=== PATIENT | female | born 1935 ===

== ENCOUNTER 2017-08-12 12:20 | Inpatient (IN) | payer MEDICARE, OTHER ==
[2017-08-12] MEDS ORDERED: Morphine 2 mg/ml ISec IVP STA (13:09)
--- NOTE | 2017-08-12 13:14 | ED PDOC ---
Arrival/HPI - General Chief Complaint: Abdominal Pain Time Seen by Provider: 08/12/17 13:00 Historian: Patient - History of Present Illness Narrative History of Present Illness (Text): 08/12/17 13:12 An 82 year old female, whose past medical history includes hypertension, hyperlipidemia, diabetes, cirrhosis, s/p cholecystectomy, ITP, RA, presents to the emergency department for a complaint of 2 day duration constant right sided pain, malaise, weakness, and fever. The patient denies headache, dizziness, chest pain, shortness of breath, dyspnea on exertion, cough, nausea, vomiting, diarrhea, neck pain, urinary/bowel changes, or any other complaint. PMD: Dr. Edwards Time/Duration: Other (2 Days) Symptom Onset: Sudden Symptom Course: Worsening Activities at Onset: Rest, Light Context: Home Past Medical History - Provider Review Nursing Documentation Reviewed: Yes - Infectious Disease Hx of Infectious Diseases: None - Tetanus Immunization Tetanus Immunization: Unknown - Reproductive Menopause: Yes - Cardiac Hx Cardiac Disorders: Yes Hx Hypertension: Yes Hx Pacemaker: No - Pulmonary Hx Respiratory Disorders: Yes Hx Asthma: Yes Hx Chronic Obstructive Pulmonary Disease (COPD): Yes Hx Emphysema: Yes Hx Sleep Apnea: Yes (CPAP) - Neurological Hx Neurological Disorder: Yes Hx Dizziness: Yes Hx Transient Ischemic Attacks (TIA): Yes - HEENT Hx HEENT Disorder: Yes Hx Cataracts: Yes (REMOVED GERALDINE.) - Renal Hx Renal Disorder: Yes Other/Comment: DIABETIC NEPHROSIS - Endocrine/Metabolic Hx Endocrine Disorders: Yes Hx Diabetes Mellitus Type 2: Yes (OFF MEDICATIONS AT PRESENT) Other/Comment: SARCOIDOSIS - Hematological/Oncological Hx Blood Disorders: Yes Hx Anemia: Yes Hx Blood Transfusions: No Hx Cirrhosis: Yes (AND THROMBOCYTOPENIA) Other/Comment: HYPOVITAMINOSIS D. IDIOPATHIC PURPURA - Integumentary Hx Dermatological Disorder: Yes Other/Comment: SCATTERED BRUISES - Musculoskeletal/Rheumatological Hx Musculoskeletal Disorders: Yes Hx Arthritis: Yes Hx Back Pain: Yes Hx Degenerative Joint Disease: Yes Hx Falls: Yes Hx Fractures: Yes (LEFT LEG) Hx Osteoporosis: Yes Hx Unsteady Gait: Yes Other/Comment: PERIPHERAL NEUROPATHY - Gastrointestinal Hx Gastrointestinal Disorders: Yes Hx Esophageal Varices: Yes Hx Fatty Liver Disease: Yes (NON-ALCOHOLIC HEPATITIS, AND CIRRHOSIS) Hx Gall Bladder Disease: Yes Hx Gastroesophageal Reflux: Yes Other/Comment: Cirrhosis - Genitourinary/Gynecological Hx Genitourinary Disorders: No - Psychiatric Hx Psychophysiologic Disorder: Yes Hx Anxiety: Yes Hx Depression: No (RECENT LOSS OF MOTHER ) Hx Substance Use: No - Surgical History Hx Cataract Extraction: Yes (GERALDINE.) Hx Cholecystectomy: Yes Hx Tonsillectomy: Yes Other/Comment: LIVER BIOPSY - Anesthesia Hx Anesthesia: Yes Hx Anesthesia Reactions: No Hx Malignant Hyperthermia: No - Suicidal Assessment Feels Threatened In Home Enviroment: No Family/Social History - Physician Review Nursing Documentation Reviewed: Yes Family/Social History: No Known Family HX Smoking Status: Former Smoker Hx Alcohol Use: No Hx Substance Use: No Hx Substance Use Treatment: No Allergies/Home Meds Allergies/Adverse Reactions: Allergies No Known Allergies Allergy (Verified 02/13/17 07:28) Home Medications: Home Meds Medication Instructions Recorded Confirmed Albuterol 0.5% [Albuterol 0.5% 2.5 mg PO Q4 PRN 11/10/14 02/13/17 Inhal Ankita (2.5 mg/0.5 ml) UD] Esomeprazole Magnesium [Nexium] 40 mg PO DAILY 11/10/14 02/13/17 Valsartan [Diovan] 320 mg PO DAILY 05/27/15 02/13/17 Arformoterol [Brovana] 15 mcg IH BID 12/05/16 02/13/17 Review of Systems - Physician Review All systems were reviewed & negative as marked: Yes - Review of Systems Constitutional: Fevers, Other (generalized malaise). absent: Night Sweats Respiratory: absent: SOB, Cough Gastrointestinal: Abdominal Pain (Right sided abdominal pain). absent: Stool Changes, Diarrhea, Nausea, Vomiting Genitourinary Female: absent: Urine Output Changes Musculoskeletal: absent: Neck Pain Neurological: absent: Headache, Dizziness, Focal Weakness Physical Exam Vital Signs Reviewed: Yes Vital Signs Temp Pulse Resp BP Pulse Ox 08/12/17 16:06 98.7 F 92 H 18 119/58 L 98 08/12/17 13:26 103.0 F H 08/12/17 12:42 103 F H 102 H 20 160/121 H 99 Temperature: Febrile Blood Pressure: Hypertensive Pulse: Tachycardic Respiratory Rate: Normal Appearance: Positive for: Non-Toxic Pain Distress: Moderate Mental Status: Positive for: Alert and Oriented X 3 - Systems Exam Head: Present: Atraumatic, Normocephalic Pupils: Present: PERRL Extroacular Muscles: Present: EOMI Conjunctiva: Present: Normal Mouth: Present: Moist Mucous Membranes Neck: Present: Normal Range of Motion Respiratory/Chest: Present: Decreased Breath Sounds (Bibasilarly reduced breath sounds) Cardiovascular: Present: Regular Rate and Rhythm, Normal S1, S2. No: Murmurs Abdomen: Present: Tenderness (Right flank pain greater than right lower quadrant pain), Distention Back: Present: Normal Inspection Upper Extremity: Present: Normal Inspection. No: Cyanosis, Edema Lower Extremity: Present: Normal Inspection. No: Edema Neurological: Present: GCS=15, CN II-XII Intact, Speech Normal Skin: Present: Warm, Dry, Normal Color. No: Rashes Psychiatric: Present: Alert, Oriented x 3, Normal Insight, Normal Concentration Medical Decision Making ED Course and Treatment: 08/12/17 13:17 Impression: An 82 year old female presents to the emergency department complaining of 2 day duration constant right sided abdominal and flank pain, malaise, fever, and weakness. Plan: -- EKG -- Abdomen/Pelvis CT -- Chest X-ray -- Labs -- Urinalysis -- Blood/ Urine Culture -- Tylenol, Morphine, Zofran, Rocephin, Lactated Ringer's -- Reassess and disposition Progress Notes: EKG: Ordered, reviewed, and independently interpreted the EKG. Rate : 97 BPM Rhythm : Borderline Tachycardia Interpretation : Q wave in lead III. No arrhythmogenic intervals. No other ischemic ST-T segments. PROCEDURE: CT abdomen pelvis dated 08/12/2017. Creator : Jasiel Bell MD Report Date : 08/12/2017 16:38:36 IMPRESSION: Findings consistent with hepatic cirrhosis portal hypertension with recanalization of the umbilical vein an anterior abdominal wall varices with varices in the left upper quadrant of the abdomen. . Abdominal ascites. Splenomegaly. Findings consistent with colitis involving the cecum ascending and proximal transverse colon and possibly the sigmoid/rectum. Possible gastritis ; rule out other invasive wall lesion. . Small hiatal hernia with wall thickening distal esophagus likely due to protrusion gastric mucosa. Esophagitis or other intrinsic/invasive wall lesion not excluded Cholecystectomy. Urinary bladder wall thickening likely due to incomplete distention however cystitis not excluded. Correlation with urinalysis. Cardiomegaly. Chest X-ray Creator : Jasiel Bell MD Report Date : 08/12/2017 16:53:36 IMPRESSION: The central pulmonary vasculature appears increased; rule out chronic compensated pulmonary edema/CHF versus perihilar infiltrates. Clinic correlation recommended. Mild bibasilar atelectasis. Marked cardiomegaly. 08/12/17 17:55: Case discussed in detail with Dr. Kemp who was concerned about possible worsening right sided ischemic collitis and advised broadening antibiotic coverage and clear diet. He states that he will see her. - Lab Interpretations Lab Results: 08/12/17 13:46 08/12/17 13:46 Lab Results 08/12/17 13:46: Sodium 139, Chloride 108 H, Potassium 3.8, Carbon Dioxide 24, Anion Gap 11, BUN 10, Creatinine 0.5 L, Est GFR ( Amer) > 60, Est GFR ( Non-Af Amer) > 60, Random Glucose 152 H, Calcium 8.2 L, Phosphorus 2.0 L, Magnesium 1.4 L, Total Bilirubin 4.7 H, AST 66 H, ALT 52, Alkaline Phosphatase 118, Troponin I < 0.01, Total Protein 6.3, Albumin 2.9 L, Globulin 3.4, Albumin/ Globulin Ratio 0.9 L 08/12/17 13:46: pO2 31, VBG pH 7.39, VBG pCO2 40.0, VBG HCO3 24.2, VBG Total CO2 25.4, VBG O2 Sat (Calc) 68.6 H, VBG Base Excess -0.7 L, VBG Potassium 3.8, Sodium 138.0, Chloride 109.0 H, Glucose 160 H, Lactate 1.8, FiO2 21.0, Venous Blood Potassium 3.8 08/12/17 13:46: Urine Color Yellow, Urine Appearance Cloudy, Urine pH 7.0, Ur Specific [place] 1.020, Urine Protein 100 H, Urine Glucose (UA) Negative, Urine Ketones Negative, Urine Blood Small H, Urine Nitrate Negative, Urine Bilirubin Negative, Urine Urobilinogen 1.0 H, Ur Leukocyte Esterase Moderate H, Urine RBC 0 - 2, Urine WBC Tntc, Ur Epithelial Cells 10 - 12, Urine Bacteria Many 08/12/17 13:46: PT 19.2 H, INR 1.67 H, APTT 37.1 H 08/12/17 13:46: WBC 10.0 D, RBC 3.45 L, Hgb 11.8 L, Hct 34.7 L, MCV 100.6, MCH 34.2, MCHC 34.0, RDW 15.4 H, Plt Count 40 L*, MPV 12.6 H, Gran % 80.5 H, Lymph % (Auto) 9.3 L, Trigg % (Auto) 9.0 H, Eos % (Auto) 1.0 L, Baso % (Auto) 0.2, Gran # 8.09 H, Lymph # (Auto) 0.9 L, Trigg # (Auto) 0.9 H, Eos # (Auto) 0.1, Baso # (Auto) 0.02, Platelet Evaluation Low I have reviewed the lab results: Yes - RAD Interpretation Radiology Orders: 08/12/17 13:04 CHEST PORTABLE [RAD] Stat 08/12/17 13:13 ABD PELVIS PO & IV CONTRAST [CT] Stat - EKG Interpretation Interpreted by ED Physician: Yes Type: 12 lead EKG - Medication Orders Current Medication Orders: Ceftriaxone Sodium (Rocephin 1 Gram Ivpb) 1 gm in 100 mls @ 100 mls/hr IVPB ONCE ONE PRN Reason: Protocol Stop: 08/13/17 14:07 Levofloxacin/Dextrose (Levaquin 750mg) 750 mg in 150 mls @ 100 mls/hr IVPB STAT STA PRN Reason: Protocol Stop: 08/12/17 19:01 Metronidazole (Flagyl) 500 mg in 100 mls @ 100 mls/hr IVPB STAT STA PRN Reason: Protocol Stop: 08/12/17 18:46 Last Admin: 08/12/17 18:11 Dose: 100 mls/hr eMAR Start Stop Document 08/12/17 18:11 OCS (Rec: 08/12/17 18:11 OCS [id number]) Intravenous Solution Start Date 08/12/17 Start Time 18:11 End Date 08/12/17 End time 19:11 Total Infusion Time 60 Lactated Ringer's (Lactated Ringer's) 1,000 mls @ 75 mls/hr IV .[id number] DELPHINE Last Admin: 08/12/17 18:12 Dose: 75 mls/hr eMAR Start Stop Document 08/12/17 18:12 OCS (Rec: 08/12/17 18:12 OCS [id number]) Intravenous Solution Start Date 08/12/17 Start Time 18:12 Discontinued Medications Acetaminophen (Tylenol 325mg Tab) 975 mg PO STAT STA Stop: 08/12/17 13:08 Last Admin: 08/12/17 13:26 Dose: 975 mg MAR Pain/Vitals Document 08/12/17 13:26 OCS (Rec: 08/12/17 13:27 OCS [id number]) Pain Reassessment Is This A Pain ReAssessment? No Sleep Is patient sleeping during reassessment? No Presence of Pain Presence of Pain Yes Pain Scale Used Pain Scale Used Numeric Location Pain Location Body Site Generalized Description Constant Intensity 10 Scale Used Numeric Pain Behavior Moaning Screaming Aggravating Factors ADL's Vitals Temperature (97.6 F-99.6 F) 103.0 F Temperature Source Oral Lactated Ringer's 1,000 ml/ IV (SUPPLIES) 1,000 mls @ 4,855.26 mls/hr IV ONCE ONE PRN Reason: 60 ML/KG/HR Stop: 08/12/17 13:02 Last Admin: 08/12/17 13:28 Dose: 4,855.26 mls/hr eMAR Start Stop Document 08/12/17 13:28 OCS (Rec: 08/12/17 13:28 [id number] Intravenous Solution Start Date 08/12/17 Start Time 13:28 Magnesium Sulfate (Magnesium Sulfate 2 Gm/50 Ml Water) 2 gm in 50 mls @ 50 mls/ hr IVPB ONCE ONE Stop: 08/12/17 17:55 Last Admin: 08/12/17 17:09 Dose: 50 mls/hr eMAR Start Stop Document 08/12/17 17:09 OCS (Rec: 08/12/17 17:09 [id number]) Intravenous Solution Start Date 08/12/17 Start Time 17:09 End Date 08/12/17 End time 18:09 Total Infusion Time 60 Morphine Sulfate (Morphine) 2 mg IVP STAT STA Stop: 08/12/17 13:10 Last Admin: 08/12/17 13:27 Dose: 2 mg MAR Pain Assessment Document 08/12/17 13:27 OCS (Rec: 08/12/17 13:27 [id number] Pain Reassessment Is this a pain reassessment? No Sleep Is patient sleeping during reassessment? No Presence of Pain Presence of Pain Yes Pain Scale Used Pain Scale Used Numeric Location Pain Location Body Site Abdomen Description Description Constant Pain Behavior Moaning Irritability Facial Grimacing Aggravating Factors ADL's IVP Administration Document 08/12/17 13:27 OCS (Rec: 08/12/17 13:27 OCS [id number]) Charges for Administration # of IVP Administrations 1 Ondansetron HCl (Zofran Inj) 4 mg IVP STAT STA Stop: 08/12/17 13:15 Last Admin: 08/12/17 13:27 Dose: 4 mg IVP Administration Document 08/12/17 13:27 OCS (Rec: 08/12/17 13:27 OCS [id number]) Charges for Administration # of IVP Administrations 1 - Scribe Statement The provider has reviewed the documentation as recorded by the Scribe Carol Grimaldo Provider Scribe Attestation: All medical record entries made by the Scribe were at my direction and personally dictated by me. I have reviewed the chart and agree that the record accurately reflects my personal performance of the history, physical exam, medical decision making, and the department course for this patient. I have also personally directed, reviewed, and agree with the discharge instructions and disposition. Disposition/Present on Arrival - Present on Arrival Any Indicators Present on Arrival: No History of DVT/PE: No History of Uncontrolled Diabetes: Yes Urinary Catheter: No History of Decub. Ulcer: No History Surgical Site Infection Following: None - Disposition Have Diagnosis and Disposition been Completed?: Yes Diagnosis: Colitis, Urinary tract infection, Sepsis Disposition: HOSPITALIZED Disposition Time: 18:39 Patient Plan: Admission, Telemetry Patient Problems: Current Active Problems Problem Status Onset Colitis Acute Sepsis Acute Urinary tract infection Acute Condition: FAIR Discharge Instructions (ExitCare): Sepsis (ED) Forms: [employer] (Greek)
[2017-08-12] MEDS ORDERED: Iohexol 240 (50 ml) ONE (13:40)
[2017-08-12 13:55] LABS: VENOUS BLOOD GAS BASE EXCESS -0.7 mmol/L (0.0-2.0); VENOUS BLOOD GAS PO2 31 mm/Hg (30-55); VENOUS BLOOD PH 7.39 (7.32-7.43)
[2017-08-12 13:57] LABS: BASO # 0.02 K/mm3 (0.0-2.0); BASO % 0.2 % (0.0-3.0); EOS # 0.1 (0.0-0.7); GRAN # 8.09 (1.4-6.5); GRAN % 80.5 % (50.0-68.0); HEMOGLOBIN 11.8 g/dL (12.0-16.0); LYMPH # 0.9 (1.2-3.4); LYMPH % 9.3 % (22.0-35.0); MEAN CELL VOLUME 100.6 fl (80.0-105.0); MEAN CORPUSCULAR HEMOGLOBIN 34.2 pg (25.0-35.0); MEAN PLATELET VOLUME 12.6 fl (7.0-11.0); MONO # 0.9 (0.1-0.6); RBC 3.45 10^6/uL (3.5-6.1); RED CELL DISTRIBUTION WIDTH 15.4 % (11.5-14.5)
[2017-08-12 14:01] LABS: ALB/GLOB RATIO 0.9 (1.1-1.8); ALBUMIN 2.9 g/dL (3.0-4.8); ALT/SGPT 52 U/L (7-56); AST/SGOT 66 U/L (14-36); BLOOD UREA NITROGEN 10 mg/dL (7-21); CALCIUM 8.2 mg/dL (8.4-10.5); GFR AFRICAN-AMERICAN > 60; GFR NON-AFRICAN AMERICAN > 60
[2017-08-12 14:03] LABS: INR 1.67 (0.93-1.08); PARTIAL THROMBOPLASTIN TIME 37.1 Seconds (25.1-36.5); PROTHROMBIN TIME 19.2 SECONDS (9.4-12.5)
[2017-08-12 14:04] LABS: PLATELET COUNT 40 10^3/uL (120.0-450.0)
[2017-08-12 14:11] LABS: URINE BILIRUBIN NEGATIVE (NEGATIVE); URINE BLOOD SMALL (NEGATIVE); URINE GLUCOSE (UA) NEGATIVE (NEGATIVE); URINE LEUKOCYTE ESTERASE MODERATE Leu/uL (NEGATIVE); URINE PROTEIN 100 mg/dL (<30 mg/dL)
[2017-08-12 14:12] LABS: URINE APPEARANCE CLOUDY (CLEAR); URINE COLOR YELLOW (YELLOW)
[2017-08-12 14:13] LABS: TROPONIN I < 0.01 ng/mL
[2017-08-12 14:17] LABS: URINE BACTERIA MANY (NEG); URINE RBC 0 - 2 /hpf (0-2); URINE WBC TNTC /hpf (0-6)
[2017-08-12 14:35] LABS: PLATELET ESTIMATE LOW (NORMAL)
[2017-08-12] MEDS ORDERED: Iohexol 350 MG/100 ML VIAL ONE (15:08)
--- NOTE | 2017-08-12 16:40 | CT ---
PROCEDURE: CT abdomen pelvis dated 08/12/2017. HISTORY: Rule out cecal colitis vs ascending pyelouretertis COMPARISON: Comparison made with prior CT scan abdomen pelvis 05/17/2014 TECHNIQUE: Contiguous axial images of the abdomen and pelvis performed following oral and intravenous injection of approximately 100 cc Omnipaque 350 contrast material. Additional 2D sagittal and coronal reformats generated. Radiation dose: Total exam DLP = 801.92 mGy-cm. This CT exam was performed using one or more of the following dose reduction techniques: Automated exposure control, adjustment of the mA and/or kV according to patient size, and/or use of iterative reconstruction technique. FINDINGS: LOWER THORAX: Heart appears enlarged. The No significant pericardial effusion. Mild atelectasis medial segment right middle lobe. There is also mild passive type atelectasis seen both posterior sulci. No effusion or basilar pneumothorax. There is a small hiatal hernia with wall thickening of the distal esophagus which may be secondary to protrusion gastric mucosa. Esophagitis or other intrinsic/invasive wall lesion not excluded. LIVER: Liver exhibits nodular surface contour with abdominal ascites. . . Minimal central intrahepatic biliary ductal dilatation likely due to post cholecystectomy state In addition, there are apparent varices seen in the left upper quadrant of the abdomen adjacent to the splenic hilar region and spleen. In addition, there is re- cannulization of the umbilical vein with anterior abdominal wall varices. Constellation of findings consistent with hepatic cirrhosis and portal hypertension. . . Note also made of a tiny hepatic calcification superior aspect right lobe liver. GALLBLADDER AND BILE DUCTS: Cholecystectomy PANCREAS: Pancreas appears slightly atrophic and fat replaced without masses collections or calcifications. SPLEEN: Spleen is enlarged measuring nearly 14 cm in AP dimension. No splenic mass or collection ADRENALS: There are no adrenal lesions. KIDNEYS AND URETERS: The kidneys demonstrate relatively symmetric nephrograms. No evidence of nephrolithiasis or hydronephrosis. No obvious enhancement of the urothelial surfaces. BLADDER: Urinary bladder is incompletely distended which may in part account for thick-walled appearance however correlation with urinalysis recommended to exclude the possibility of a cystitis. REPRODUCTIVE: Uterus unremarkable APPENDIX: Unremarkable. BOWEL: Evaluation of the bowel is limited due to the incomplete opacification. The stomach is incompletely distended which may in part account for thick-walled appearance however rugal folds are prominent; rule out gastritis or other intrinsic/invasive wall lesion. There are several minimally distended loops of proximal small bowel which could be secondary to mild ileus. Marked wall thickening of the cecum and at ascending as well as proximal transverse colon consistent with a nonspecific colitis. Clinical correlation recommended. Note also made of scattered colonic diverticulum along the splenic flexure region, descending and sigmoid colon however no definitive radiographic evidence acute diverticulitis. . Note is made of wall thickening of the rectum and distal sigmoid colon which could be due to colitis -proctitis. PERITONEUM: Abdominal ascites. No gross free intraperitoneal air. LYMPH NODES: Unremarkable. No enlarged lymph nodes. VASCULATURE: Unremarkable. No aortic aneurysm. BONES: No fracture or destructive lesion. OTHER FINDINGS: None. IMPRESSION: Findings consistent with hepatic cirrhosis portal hypertension with recanalization of the umbilical vein an anterior abdominal wall varices with varices in the left upper quadrant of the abdomen. . Abdominal ascites. Splenomegaly. Findings consistent with colitis involving the cecum ascending and proximal transverse colon and possibly the sigmoid/rectum. Possible gastritis ; rule out other invasive wall lesion. . Small hiatal hernia with wall thickening distal esophagus likely due to protrusion gastric mucosa. Esophagitis or other intrinsic/invasive wall lesion not excluded Cholecystectomy. Urinary bladder wall thickening likely due to incomplete distention however cystitis not excluded. Correlation with urinalysis. Cardiomegaly.
--- NOTE | 2017-08-12 16:55 | RAD ---
HISTORY: Sepsis Patient COMPARISON: Comparison chest 05/05/2015. FINDINGS: LUNGS: The central pulmonary vasculature appears increased; rule out chronic compensated pulmonary edema/CHF versus perihilar infiltrates. Clinic correlation recommended. Mild bibasilar atelectasis. PLEURA: No significant pleural effusion identified, no pneumothorax apparent. CARDIOVASCULAR: Marked cardiomegaly. OSSEOUS STRUCTURES: No significant abnormalities. VISUALIZED UPPER ABDOMEN: Normal. OTHER FINDINGS: None. IMPRESSION: The central pulmonary vasculature appears increased; rule out chronic compensated pulmonary edema/CHF versus perihilar infiltrates. Clinic correlation recommended. Mild bibasilar atelectasis. Marked cardiomegaly.
[2017-08-12] MEDS ORDERED: Magnesium Sulfate 2 gm/50 ml 2 GM/50 ML BAG IVPB ONE (16:56)
[2017-08-12] MEDS ORDERED: levoFLOXacin 750 mg in D5W 750 MG/150 ML BAG IVPB STA (17:32)
[2017-08-12] MEDS ORDERED: metroNIDAZOLE IV 500 mg/100 ml 500 MG/100 ML BAG IVPB STA (17:47)
[2017-08-12] MEDS: Lactated Ringer's 1,000 ML IV SCH (18:12)
--- NOTE | 2017-08-12 21:48 | CP.PCM.HP ---
<Nikolas Bowers - Last Filed: 08/12/17 22:55> History of Present Illness - History of Present Illness History of Present Illness: Chief Complaint: "I have abdominal pain which goes down my legs and my back." Patient is an 82 year old female with a past medical history of COPD, rheumatoid arthritis, hemotomachrosis, DM on diet control, hypertension, hyperlipidemia, ITP who presents to the emergency department with complaints of abdominal pain which began two days ago while at home relaxing. Patient states the pain is located initially in her epigastric region then radiated down to her legs bilaterally radiating to her toes. She also states the pain radiates directly to her back. Describes the pain as sharp rating it a 8/10. Pain is exacerbated when palpated, and has no relieving factors thus far. Patient states she experienced this exact feeling a few years back which also caused her to be admitted. As per patient's daughter who was at bedside patient has been eating raw rice as of late. Patient admits to chills, two episodes of vomiting the day prior to admission. Denies any acute shortness of breath, chest pain, palpitations, nausea, headache. PMD: Dr. Edwards, however patient goes back and forth and also sees a physician in [place]: Denies Family history: non-contributory Social history: lives with , denies smoking,alcohol abuse, or drug abuse Surgical history: carpal tunnel, cholecystectomy Labs: RBC 3.45, H&H 11.8 & 34.7, Plt 40, Gran% 80.5, INR 1.67, APTT 37.1, lactate 1.8, Chloride 108, calcium 8.2, phosphorous 2.0, magnesium 1.4, AST 66, Troponin 0.01 UA: Leukocyte esterase +, WBC Tntc CT abdomen and pelvis -Findings consistent with hepatic cirrhosis portal hypertension with recanalization of the umbilical vein an anterior abdominal wall varices with varices in the left upper quadrant of the abdomen. . Abdominal ascites. Splenomegaly. -Findings consistent with colitis involving the cecum ascending and proximal transverse colon and possibly the sigmoid/rectum. -Possible gastritis ; rule out other invasive wall lesion. . Small hiatal hernia with wall thickening distal esophagus likely due to protrusion gastric mucosa. Esophagitis or other intrinsic/invasive wall lesion not excluded -Cholecystectomy. -Urinary bladder wall thickening likely due to incomplete distention however cystitis not excluded. Correlation with urinalysis. -Cardiomegaly. Present on Admission - Present on Admission Any Indicators Present on Admission: No Review of Systems - Constitutional Constitutional: Chills. absent: Anorexia, Fever, Headache - EENT Eyes: absent: Blurred Vision, Change in Vision - Cardiovascular Cardiovascular: absent: Chest Pain, Dyspnea - Respiratory Respiratory: absent: Cough, Dyspnea - Gastrointestinal Gastrointestinal: Abdominal Pain, Vomiting. absent: Diarrhea - Genitourinary Genitourinary: absent: Dysuria - Musculoskeletal Musculoskeletal: absent: Back Pain - Neurological Neurological: absent: Dizziness, Numbness - Psychiatric Psychiatric: absent: Anxiety - Hematologic/Lymphatic Hematologic: absent: Easy Bleeding Past Patient History - Infectious Disease Hx of Infectious Diseases: None - Tetanus Immunizations Tetanus Immunization: Unknown - Past Medical History & Family History Past Medical History?: Yes - Past Social History Smoking Status: Former Smoker - CARDIAC Hx Cardiac Disorders: Yes Hx Hypertension: Yes Hx Pacemaker: No - PULMONARY Hx Respiratory Disorders: Yes Hx Asthma: Yes Hx Chronic Obstructive Pulmonary Disease (COPD): Yes Hx Emphysema: Yes Hx Sleep Apnea: Yes (CPAP) - NEUROLOGICAL Hx Neurological Disorder: Yes Hx Dizziness: Yes Hx Transient Ischemic Attacks (TIA): Yes - HEENT Hx HEENT Problems: Yes Hx Cataracts: Yes (REMOVED GERALDINE.) - RENAL Hx Chronic Kidney Disease: Yes Other/Comment: DIABETIC NEPHROSIS - ENDOCRINE/METABOLIC Hx Endocrine Disorders: Yes Hx Diabetes Mellitus Type 2: Yes (OFF MEDICATIONS AT PRESENT) Other/Comment: SARCOIDOSIS - HEMATOLOGICAL/ONCOLOGICAL Hx Blood Disorders: Yes Hx Anemia: Yes Hx Blood Transfusions: No Hx Cirrhosis: Yes (AND THROMBOCYTOPENIA) Other/Comment: HYPOVITAMINOSIS D. IDIOPATHIC PURPURA - INTEGUMENTARY Hx Dermatological Problems: Yes Other/Comment: SCATTERED BRUISES - MUSCULOSKELETAL/RHEUMATOLOGICAL Hx Musculoskeletal Disorders: Yes Hx Arthritis: Yes Hx Back Pain: Yes Hx Degenerative Joint Disease: Yes Hx Falls: Yes Hx Fractures: Yes (LEFT LEG) Hx Osteoporosis: Yes Hx Unsteady Gait: Yes Other/Comment: PERIPHERAL NEUROPATHY - GASTROINTESTINAL Hx Gastrointestinal Disorders: Yes Hx Esophageal Varices: Yes Hx Fatty Liver Disease: Yes (NON-ALCOHOLIC HEPATITIS, AND CIRRHOSIS) Hx Gall Bladder Disease: Yes Hx Gastroesophageal Reflux: Yes Other/Comment: Cirrhosis - GENITOURINARY/GYNECOLOGICAL Hx Genitourinary Disorders: No - PSYCHIATRIC Hx Psychophysiologic Disorder: Yes Hx Anxiety: Yes Hx Depression: No (RECENT LOSS OF MOTHER ) Hx Substance Use: No - SURGICAL HISTORY Hx Cataract Extraction: Yes (GERALDINE.) Hx Cholecystectomy: Yes Hx Tonsillectomy: Yes Other/Comment: LIVER BIOPSY - ANESTHESIA Hx Anesthesia: Yes Hx Anesthesia Reactions: No Hx Malignant Hyperthermia: No Meds Allergies/Adverse Reactions: Allergies Allergy/AdvReac Type Severity Reaction Status Date / Time No Known Allergies Allergy Verified 02/13/17 07:28 Physical Exam - Head Exam Head Exam: ATRAUMATIC, NORMAL INSPECTION, NORMOCEPHALIC - Eye Exam Eye Exam: EOMI, Normal appearance - ENT Exam ENT Exam: Mucous Membranes Moist - Respiratory Exam Respiratory Exam: Rhonchi (b/l lower bases). absent: Clear to Auscultation Bilateral - Cardiovascular Exam Cardiovascular Exam: REGULAR RHYTHM, +S1, +S2 - GI/Abdominal Exam GI & Abdominal Exam: Hyperactive Bowel Sounds, Tenderness (in all quadrants especially right mid and lower). absent: Guarding - Extremities Exam Extremities exam: Positive for: normal inspection - Back Exam Back exam: NORMAL INSPECTION - Neurological Exam Neurological exam: Alert, CN II-XII Intact, Oriented x3 - Psychiatric Exam Psychiatric exam: Normal Affect, Normal Mood - Skin Skin Exam: Warm Additional comments: bronze coloration of skin Results - Vital Signs Recent Vital Signs: Last Vital Signs Temp 98.7 F 08/12/17 16:06 Pulse 88 08/12/17 19:07 Resp 18 08/12/17 19:07 BP 112/64 08/12/17 19:07 Pulse Ox 99 08/12/17 19:07 - Labs Result Diagrams: 08/12/17 13:46 08/12/17 13:46 Labs: Laboratory Results - last 24 hr 08/12/17 08/12/17 08/12/17 13:46 13:46 13:46 WBC 10.0 D RBC 3.45 L Hgb 11.8 L Hct 34.7 L MCV 100.6 MCH 34.2 MCHC 34.0 RDW 15.4 H Plt Count 40 L* MPV 12.6 H Gran % 80.5 H Lymph % (Auto) 9.3 L [place] % (Auto) 9.0 H Eos % (Auto) 1.0 L Baso % (Auto) 0.2 Gran # 8.09 H Lymph # (Auto) 0.9 L [place] # (Auto) 0.9 H Eos # (Auto) 0.1 Baso # (Auto) 0.02 Platelet Evaluation Low PT 19.2 H INR 1.67 H APTT 37.1 H pO2 VBG pH VBG pCO2 VBG HCO3 VBG Total CO2 VBG O2 Sat (Calc) VBG Base Excess VBG Potassium Sodium Chloride Glucose Lactate FiO2 Potassium Carbon Dioxide Anion Gap BUN Creatinine Est GFR ( Amer) Est GFR (Non-Af Amer) Random Glucose Calcium Phosphorus Magnesium Total Bilirubin AST ALT Alkaline Phosphatase Troponin I Total Protein Albumin Globulin Albumin/Globulin Ratio Venous Blood Potassium Urine Color Yellow Urine Appearance Cloudy Urine pH 7.0 Ur Specific [place] 1.020 Urine Protein 100 H Urine Glucose (UA) Negative Urine Ketones Negative Urine Blood Small H Urine Nitrate Negative Urine Bilirubin Negative Urine Urobilinogen 1.0 H Ur Leukocyte Esterase Moderate H Urine RBC 0 - 2 Urine WBC Tntc Ur Epithelial Cells 10 - 12 Urine Bacteria Many 08/12/17 08/12/17 13:46 13:46 WBC RBC Hgb Hct MCV MCH MCHC RDW Plt Count MPV Gran % Lymph % (Auto) [place] % (Auto) Eos % (Auto) Baso % (Auto) Gran # Lymph # (Auto) [place] # (Auto) Eos # (Auto) Baso # (Auto) Platelet Evaluation PT INR APTT pO2 31 VBG pH 7.39 VBG pCO2 40.0 VBG HCO3 24.2 VBG Total CO2 25.4 VBG O2 Sat (Calc) 68.6 H VBG Base Excess -0.7 L VBG Potassium 3.8 Sodium 138.0 139 Chloride 109.0 H 108 H Glucose 160 H Lactate 1.8 FiO2 21.0 Potassium 3.8 Carbon Dioxide 24 Anion Gap 11 BUN 10 Creatinine 0.5 L Est GFR ( Amer) > 60 Est GFR (Non-Af Amer) > 60 Random Glucose 152 H Calcium 8.2 L Phosphorus 2.0 L Magnesium 1.4 L Total Bilirubin 4.7 H AST 66 H ALT 52 Alkaline Phosphatase 118 Troponin I < 0.01 Total Protein 6.3 Albumin 2.9 L Globulin 3.4 Albumin/Globulin Ratio 0.9 L Venous Blood Potassium 3.8 Urine Color Urine Appearance Urine pH Ur Specific [place] Urine Protein Urine Glucose (UA) Urine Ketones Urine Blood Urine Nitrate Urine Bilirubin Urine Urobilinogen Ur Leukocyte Esterase Urine RBC Urine WBC Ur Epithelial Cells Urine Bacteria Assessment & Plan - Assessment and Plan (Free Text) Assessment: Patient is an 82 year old female with a past medical history of COPD, rheumatoid arthritis, hemotomachrosis, DM on diet control, hypertension, hyperlipidemia, ITP who presents to the emergency department with complaints of abdominal pain which began two days ago while at home relaxing found to have colitis and possible gastritis on CT abdomen/pelvis Plan: Abdominal pain secondary to Colitis -GI consulted -Clear liquid diet -Continue with Rocephin and Flagyl -ZOfran PRN for nausea -Stool occult -Fecal leukocytes, Stool cultures, C diff -PT/PTT -Blood cultures UTI -Positive on UA -Continue with antibiotic regimen -Urine culture Anemia -Iron and TIBC -Transferrin, ferritin, folate, Vitamin B12 Hypertension -Currently control -Will continue to monitor and medicate appropriately GI prophylaxis: Protonix DVT prophylaxis: mechanical for now, will hold on on pharmalogical <Bailey Walters - Last Filed: 08/13/17 03:16> Results - Vital Signs Recent Vital Signs: Last Vital Signs Temp 98.4 F 08/13/17 00:01 Pulse 77 08/13/17 02:00 Resp 20 08/13/17 00:01 BP 126/68 08/13/17 00:01 Pulse Ox 97 08/13/17 00:01 - Labs Result Diagrams: 08/12/17 13:46 08/12/17 13:46 Labs: Laboratory Results - last 24 hr 08/12/17 08/12/17 21:46 21:46 Iron 91 TIBC 293 % Saturation 31 NT-Pro-B Natriuret Pep 582 H Attending/Attestation - Attestation I have personally seen and examined this patient.: Yes I have fully participated in the care of the patient.: Yes I have reviewed all pertinent clinical information: Yes Notes (Text): 08/13/17 03:15 Patient was seen when she was in bed # 6 in the ER. Agree with history, physical examination, assessment and plan.
[2017-08-12 22:06] LABS: IRON 91 ug/dL (45-180)
[2017-08-12 22:16] LABS: % IRON SATURATION 31 % (20-55); TOTAL IRON BINDING CAPACITY 293 ug/dL (265-497)
[2017-08-12] MEDS ORDERED: cefTRIAXone 1 gm 1 GM/100 ML BAG IVPB ONE (23:45)
[2017-08-12] MEDS ORDERED: Albuterol-Ipratrop 3 mg / 0.5 (3 ml) UD IH PRN (23:53)
[2017-08-13] MEDS: Morphine 2 mg/ml ISec IVP PRN ×3 (00:24→17:36)
[2017-08-13] MEDS ORDERED: Sodium Phosphate 15 MMOLE in Sodium Chloride 0.9% 250 ML IVPB ONE (03:11)
[2017-08-13 05:07] VITALS: BMI 29.6
[2017-08-13 07:48] LABS: BASO # 0.01 K/mm3 (0.0-2.0); BASO % 0.1 % (0.0-3.0); EOS # 0.2 (0.0-0.7); EOS % 2.6 % (1.5-5.0); GRAN # 5.89 (1.4-6.5); GRAN % 72.1 % (50.0-68.0); HEMOGLOBIN 10.7 g/dL (12.0-16.0); LYMPH # 1.1 (1.2-3.4); LYMPH % 13.3 % (22.0-35.0); MEAN CELL VOLUME 101.6 fl (80.0-105.0); MEAN CORPUSCULAR HEMOGLOBIN 33.5 pg (25.0-35.0); MEAN PLATELET VOLUME 13.3 fl (7.0-11.0); MONO % 11.9 % (1.0-6.0); RBC 3.19 10^6/uL (3.5-6.1); RED CELL DISTRIBUTION WIDTH 15.4 % (11.5-14.5); WHITE BLOOD COUNT 8.2 10^3/ul (4.5-11.0)
[2017-08-13 07:52] LABS: PLATELET COUNT 36 10^3/uL (120.0-450.0)
[2017-08-13] MEDS: Lactated Ringer's 1,000 ML IV SCH ×2 (08:00→21:00)
--- NOTE | 2017-08-13 08:00 | CP.PCM.PN ---
<Nikolas Bowers - Last Filed: 08/13/17 12:52> Subjective - Date & Time of Evaluation Date of Evaluation: 08/13/17 Time of Evaluation: 11:59 - Subjective Subjective: Patient seen and examined at bedside stating she is still in pain although it has improved since last night. Denies shortness of breath, chest pain, nausea, vomiting, diarrhea, headaches, fevers, chills. Objective - Vital Signs/Intake and Output Vital Signs (last 24 hours): Temp Pulse Resp BP Pulse Ox 98.3 F 79 20 118/57 L 94 L 08/13/17 06:00 08/13/17 06:00 08/13/17 06:00 08/13/17 06:00 08/13/17 06:00 Intake and Output: 08/13/17 08/13/17 06:59 18:59 Intake Total 1146 Output Total 300 Balance 846 - Medications Medications: Current Medications Acetaminophen (Tylenol 325mg Tab) 650 mg PO Q6H PRN PRN Reason: Fever >100.4 F Albuterol/Ipratropium (Duoneb 3 Mg/0.5 Mg (3 Ml) Ud) 3 ml IH [id number] PRN PRN Reason: Shortness of Breath Lactated Ringer's (Lactated Ringer's) 1,000 mls @ 75 mls/hr IV .[id number] [facility] Last Admin: 08/12/17 18:12 Dose: 75 mls/hr Metronidazole (Flagyl) 500 mg in 100 mls @ 100 mls/hr IVPB Q8 [facility] PRN Reason: Protocol Ceftriaxone Sodium (Rocephin 1 Gram Ivpb) 1 gm in 100 mls @ 100 mls/hr IVPB DAILY [facility] PRN Reason: Protocol Sodium Phosphate 15 mmole/ (Sodium Chloride) 255 mls @ 42.5 mls/hr IVPB ONCE ONE Stop: 08/13/17 09:10 Last Admin: 08/13/17 04:29 Dose: 42.5 mls/hr Morphine Sulfate (Morphine) 2 mg IVP Q4H PRN PRN Reason: Pain, severe (8-10) Last Admin: 08/13/17 00:24 Dose: 2 mg Ondansetron HCl (Zofran Inj) 4 mg IVP Q6H PRN PRN Reason: Nausea/Vomiting Pantoprazole Sodium (Protonix Inj) 40 mg IVP DAILY [facility] - Labs Labs: 08/13/17 07:00 PT 19.2 SECONDS (9.4-12.5) H 08/12/17 13:46 INR 1.67 (0.93-1.08) H 08/12/17 13:46 APTT 37.1 Seconds (25.1-36.5) H 08/12/17 13:46 - Head Exam Head Exam: ATRAUMATIC, NORMAL INSPECTION, NORMOCEPHALIC - Eye Exam Eye Exam: EOMI, Normal appearance - ENT Exam ENT Exam: Mucous Membranes Moist - Respiratory Exam Respiratory Exam: Clear to Ausculation Bilateral, Rhonchi (lower lobes b/l), NORMAL BREATHING PATTERN. absent: Wheezes - Cardiovascular Exam Cardiovascular Exam: REGULAR RHYTHM, +S1, +S2 - GI/Abdominal Exam GI & Abdominal Exam: Soft, Tenderness, Normal Bowel Sounds - Extremities Exam Extremities Exam: Full ROM, Normal Inspection - Neurological Exam Neurological Exam: Alert, Awake, Oriented x3 - Psychiatric Exam Psychiatric exam: Normal Affect, Normal Mood - Skin Skin Exam: Warm. absent: Normal Color (spots of brown discoloration and vitiligo throughout body) Assessment and Plan - Assessment and Plan (Free Text) Assessment: Patient is an 82 year old female with a past medical history of COPD, rheumatoid arthritis, hemotomachrosis, DM on diet control, hypertension, hyperlipidemia, ITP who presents to the emergency department with complaints of abdominal pain which began two days ago while at home relaxing found to have colitis and possible gastritis on CT abdomen/pelvis Plan: Abdominal pain secondary to Colitis -GI consulted -Continue with clear liquid diet -Continue with Rocephin and Flagyl -Zofran PRN for nausea -Stool occult -Fecal leukocytes, Stool cultures, C diff -Continue to monitor CBC, CMP, PT/PTT -Blood cultures ordered results pending UTI -Positive on UA -Continue with antibiotic regimen -Urine culture and sensitivity Anemia -Iron and TIBC normal -Transferrin 168 -Ferritin/folate/Vitamin B12 pending Hypertension -Currently controlled -Will continue to monitor and medicate appropriately COPD -Duonebs -NC 2L GI prophylaxis: Protonix DVT prophylaxis: mechanical for now, will hold on on pharmacological <Amanda Jacobs - Last Filed: 08/13/17 15:29> Objective - Vital Signs/Intake and Output Vital Signs (last 24 hours): Temp Pulse Resp BP Pulse Ox 98.9 F 75 21 144/77 94 L 08/13/17 12:00 08/13/17 12:00 08/13/17 12:00 08/13/17 12:00 08/13/17 06:00 Intake and Output: 08/13/17 08/13/17 06:59 18:59 Intake Total 1146 Output Total 300 Balance 846 - Medications Medications: Current Medications Acetaminophen (Tylenol 325mg Tab) 650 mg PO Q6H PRN PRN Reason: Fever >100.4 F Albuterol/Ipratropium (Duoneb 3 Mg/0.5 Mg (3 Ml) Ud) 3 ml IH [id number] PRN PRN Reason: Shortness of Breath Lactated Ringer's (Lactated Ringer's) 1,000 mls @ 75 mls/hr IV .[id number] [facility] Last Admin: 08/13/17 08:00 Dose: 75 mls/hr Metronidazole (Flagyl) 500 mg in 100 mls @ 100 mls/hr IVPB Q8 [facility] PRN Reason: Protocol Last Admin: 08/13/17 13:30 Dose: 100 mls/hr Ceftriaxone Sodium (Rocephin 1 Gram Ivpb) 1 gm in 100 mls @ 100 mls/hr IVPB DAILY [facility] PRN Reason: Protocol Last Admin: 08/13/17 09:34 Dose: 100 mls/hr Morphine Sulfate (Morphine) 2 mg IVP Q4H PRN PRN Reason: Pain, severe (8-10) Last Admin: 08/13/17 09:32 Dose: 2 mg Ondansetron HCl (Zofran Inj) 4 mg IVP Q6H PRN PRN Reason: Nausea/Vomiting Pantoprazole Sodium (Protonix Inj) 40 mg IVP DAILY [facility] Last Admin: 08/13/17 09:34 Dose: 40 mg - Labs Labs: 08/13/17 07:00 08/13/17 07:00 PT 21.0 SECONDS (9.4-12.5) H 08/13/17 07:00 INR 1.80 (0.93-1.08) H 08/13/17 07:00 APTT 40.6 Seconds (25.1-36.5) H 08/13/17 07:00 Attending/Attestation - Attestation I have personally seen and examined this patient.: Yes I have fully participated in the care of the patient.: Yes I have reviewed all pertinent clinical information, including history, physical exam and plan: Yes Notes (Text): 08/13/17 14:50 Medical record note made by the resident after discussion with my direction and input after the patient was personally seen and examined by me. I have reviewed the chart and agree that the record accurately reflects by personal performance of the history, physical exam, data review, and medical decision-making, in the course for the patient. I have also personally directed the plan of care. 82 year old female with a past medical history of COPD, rheumatoid arthritis, chronic liver disease, , hypertension, hyperlipidemia, chronic thrombocytopenia ,ITP? is admitted with abdominal pain due to ascending Colitis, has significant tenderness in the right lower quadrant, tolerating clear liquid. We will continue IV antibiotics.Case was discussed with ISELA Pate. Thrmobocytopenia is chronic.There is no evidence of bleeding, we will monitor. Management plan was discussed in detail with patient and family. Education was provided. 08/13/17 15:29
[2017-08-13 08:05] LABS: ALB/GLOB RATIO 0.8 (1.1-1.8); ALBUMIN 2.4 g/dL (3.0-4.8); ALT/SGPT 45 U/L (7-56); AST/SGOT 53 U/L (14-36); BLOOD UREA NITROGEN 11 mg/dL (7-21); CALCIUM 7.8 mg/dL (8.4-10.5); GFR AFRICAN-AMERICAN > 60; GFR NON-AFRICAN AMERICAN > 60; INR 1.8 (0.93-1.08); PARTIAL THROMBOPLASTIN TIME 40.6 Seconds (25.1-36.5)
[2017-08-13] MEDS: cefTRIAXone 1 gm 1 GM/100 ML BAG IVPB SCH (09:34)
[2017-08-13] MEDS: metroNIDAZOLE IV 500 mg/100 ml 500 MG/100 ML BAG IVPB SCH ×3 (09:36→21:18)
--- NOTE | 2017-08-13 12:14 | CON ---
DATE: 08/12/2017 HISTORY OF PRESENT ILLNESS: This 82-year-old patient with a past medical history of cirrhosis of the liver, rheumatoid arthritis, COPD. 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 [place]. Admitted with the complaints of abdominal pain, leg pain and also back pain. Progressively, the symptoms were getting worse for over the 2 days. They have mentioned the discomfort is mainly on the right side of the abdomen. History of loose bowel movements present. No bleeding per rectum. No vomiting. The patient had an abdominal pain, had CT scan done in 12/2016, which showed narrowing of the cecum, neoplasia versus colitis. Also found to have some thickening of the gastric antrum suggestive of gastritis. The patient had colonoscopy done and also endoscopy done. Endoscopy was done in 11/2016, it showed grade 1 esophageal varices, gastritis. The patient had a colonoscopy done on 02/23/2017, the report was reviewed - internal hemorrhoids, diverticulosis and a small 3-mm polyp with transverse colon was removed. There is no lesion or colitis noticed in the cecum or ascending colon. The patient's polyp path showed only hyperplastic polyp. PAST MEDICAL HISTORY: Other past medical history significant for rheumatoid arthritis, status post cholecystectomy, COPD, diabetes mellitus, chronic kidney disease, nonalcoholic liver disease. The patient did have a liver biopsy in the past, it showed hepatic steatosis. PAST SURGICAL HISTORY: Significant for cholecystectomy, tonsillectomy, liver biopsy. FAMILY HISTORY: Noncontributory. SOCIAL HISTORY: Denies smoking. No alcohol. REVIEW OF THE SYSTEMS: Positive as above. Other systems reviewed. PHYSICAL EXAMINATION: GENERAL: The patient is lying on the bed, not in acute distress. VITAL SIGNS: Temperature is 98.9, blood pressure is 119/58, respirations 18, O2 saturation 98%. HEENT: Atraumatic, anicteric. NECK: Supple. HEART: S1 and S2 heard. LUNGS: Bilateral air entry present. ABDOMEN: Softly distended. Tenderness present in the right side of the abdomen, mainly in the right lower quadrant area. There is no rebound or guarding. EXTREMITIES: No cyanosis. No clubbing. Mild edema present. NEUROLOGICAL: Alert, oriented, moves all the extremities. LABORATORY DATA: Hemoglobin 11.8, hematocrit 34.7, WBC is 10, platelets 40. Chemistry is otherwise unremarkable. Magnesium is 1.4, total bilirubin 4.7. AST 66, ALT 52. IMPRESSION: This is an 82-year-old patient with a history of cirrhosis of the liver, liver biopsy in the past showed steatohepatitis, now presented with abdominal pain, mainly in the right side. The CT scan shows a focal thickening of the right colon max cecum. The patient did have a colonoscopy done in 01/2017, which showed normal. I did review the CT scans . The patient has significant thickening in the right side of the colon. Most likely, the cause for her abdominal pain may be secondary to this colitis, mainly in the right side of colon. Rule out ischemic colitis other DD infectious and inflammatory. Other comorbidities include cirrhosis of the liver, chronic obstructive pulmonary disease, diabetes mellitus, chronic kidney disease. RECOMMENDATIONS: We will wait for the stool cultures, stool for C. diff. We will start the patient on IV antibiotics. Clear liquid diet. We will continue to closely follow up her care and suggest further management based on the clinical course. Vernell Kemp MD MTDD
[2017-08-13 12:45] LABS: FERRITIN 98.6 ng/mL
[2017-08-13] MEDS ORDERED: cefTRIAXone 1 gm 1 GM/100 ML BAG IVPB ONE (13:08)
[2017-08-13 13:15] LABS: FOLATE 19.4 ng/mL
--- NOTE | 2017-08-13 13:15 | CARD ---
APPROVED REPORT EKG Measurement Heart [id number] <Conclusion> Normal sinus rhythm Normal ECG
--- NOTE | 2017-08-13 14:34 | RAD ---
PROCEDURE: Pelvis and right hip HISTORY: Pain. No history of recent/ related trauma provided COMPARISON: None TECHNIQUE: Standard protocol for this study/examination. FINDINGS: There are no osseous abnormalities to suggest fracture. The pelvic ring is intact. Preserved femoral-acetabular relationship. Negative study for protrusio, subluxation or dislocation. Degenerative changes: Mild. IMPRESSION: No acute findings related to/accounting for the clinical presentation.
--- NOTE | 2017-08-13 14:35 | RAD ---
PROCEDURE: Radiographs of the Lumbar Spine. HISTORY: back pain No history of recent trauma provided COMPARISON: No prior. FINDINGS: BONES: Normal alignment. No listhesis. No fracture. DISC SPACES: Disc degenerative changes lower lumbar spine. OTHER FINDINGS: None. IMPRESSION: No significant or acute findings to account for/ related to the clinical presentation.
[2017-08-14 00:17] VITALS: RESP 20
[2017-08-14] MEDS: Lactated Ringer's 1,000 ML IV SCH ×2 (03:00→14:16)
--- NOTE | 2017-08-14 03:14 | PN ---
DATE: 08/13/2017 SUBJECTIVE: This patient still complains of pain in the right side of the abdomen. She also complains of pain in the right leg, from the back pain radiating to the right leg. PHYSICAL EXAMINATION: VITAL SIGNS: Temperature is 97.9, pulse 75, blood pressure is 145/75, respirations 18. HEENT: Atraumatic, anicteric. NECK: Supple. HEART: S1, S2 heard. LUNGS: Bilateral air entry present. ABDOMEN: Soft. There was tenderness present in the lower abdomen in the right lower quadrant area, and right side of the abdomen. LABORATORY DATA: Hemoglobin 10.7, hematocrit 32.4, WBC is 8.2, platelets 36. Total bilirubin 4.3, AST 53. IMPRESSION: This is an 82-year-old patient with cirrhosis of the liver, probably secondary to the nonalcoholic steatohepatitis, admitted with abdominal pain, right-sided colonic thickening, significant thickening noticed. Patient did have abnormal CAT scan in December, had a colonoscopy done in March, there were no lesions noticed. No active colitis noticed. Clinically, the pattern is more suggestive of ischemic colitis. The other differential diagnosis actually includes; 1. Infectious, less likely inflammatory. 2. Cirrhosis of the liver, ascites, and thrombocytopenia. Patient does have grade 1 esophageal varices. 3. Other comorbidities include hypertension, chronic obstructive pulmonary disease. PLAN: We would recommend to continue the antibiotics, clear liquid diet. May benefit from the abdominal Doppler to evaluate the celiac and mesenteric vessels. Also request stool for C. diff. Thank you very much for allowing us to participate in the care of the patient. Vernell Kemp MD
[2017-08-14] MEDS: metroNIDAZOLE IV 500 mg/100 ml 500 MG/100 ML BAG IVPB SCH ×3 (05:28→21:29)
[2017-08-14 06:22] LABS: BASO # 0.04 K/mm3 (0.0-2.0); BASO % 0.9 % (0.0-3.0); EOS # 0.3 (0.0-0.7); EOS % 5.9 % (1.5-5.0); GRAN # 2.54 (1.4-6.5); GRAN % 55.3 % (50.0-68.0); HEMOGLOBIN 10.5 g/dL (12.0-16.0); LYMPH # 1.2 (1.2-3.4); LYMPH % 26.1 % (22.0-35.0); MEAN CELL VOLUME 101.9 fl (80.0-105.0); MEAN CORPUSCULAR HEMOGLOBIN 33.7 pg (25.0-35.0); MEAN PLATELET VOLUME 12.7 fl (7.0-11.0); MONO # 0.5 (0.1-0.6); MONO % 11.8 % (1.0-6.0); RBC 3.12 10^6/uL (3.5-6.1); RED CELL DISTRIBUTION WIDTH 15.7 % (11.5-14.5); WHITE BLOOD COUNT 4.6 10^3/ul (4.5-11.0)
--- NOTE | 2017-08-14 06:35 | CP.PCM.PN ---
Subjective - Date & Time of Evaluation Date of Evaluation: 08/14/17 Time of Evaluation: 06:35 - Subjective Subjective: GI Progress Note for Roly Adair PGY2 Patient seen and examined at bedside. There were no acute overnight events as per nursing staff. Patient reports her abdominal pain has improved and would like to try to advance her diet. She denies chest pain, shortness of breath, nausea/vomiting/diarrhea, fever/chills, numbness/tingling, dysuria/hematuria. Objective - Vital Signs/Intake and Output Vital Signs (last 24 hours): Temp Pulse Resp BP Pulse Ox 98.2 F 75 20 143/83 96 08/14/17 00:01 08/14/17 05:05 08/14/17 00:01 08/14/17 00:01 08/14/17 00:01 Intake and Output: 08/13/17 08/14/17 18:59 06:59 Intake Total 1950 720 Output Total 780 Balance 1170 720 - Medications Medications: Current Medications Acetaminophen (Tylenol 325mg Tab) 650 mg PO Q6H PRN PRN Reason: Fever >100.4 F Albuterol/Ipratropium (Duoneb 3 Mg/0.5 Mg (3 Ml) Ud) 3 ml IH [id number] PRN PRN Reason: Shortness of Breath Lactated Ringer's (Lactated Ringer's) 1,000 mls @ 75 mls/hr IV .[id number] [facility] Last Admin: 08/14/17 03:00 Dose: 75 mls/hr Metronidazole (Flagyl) 500 mg in 100 mls @ 100 mls/hr IVPB Q8 DELPHINE PRN Reason: Protocol Last Admin: 08/14/17 05:28 Dose: 100 mls/hr Ceftriaxone Sodium (Rocephin 1 Gram Ivpb) 1 gm in 100 mls @ 100 mls/hr IVPB DAILY DELPHINE PRN Reason: Protocol Last Admin: 08/13/17 09:34 Dose: 100 mls/hr Morphine Sulfate (Morphine) 2 mg IVP Q4H PRN PRN Reason: Pain, severe (8-10) Last Admin: 08/13/17 17:36 Dose: 2 mg Ondansetron HCl (Zofran Inj) 4 mg IVP Q6H PRN PRN Reason: Nausea/Vomiting Pantoprazole Sodium (Protonix Inj) 40 mg IVP DAILY DELPHINE Last Admin: 08/13/17 09:34 Dose: 40 mg - Labs Labs: 08/13/17 07:00 08/13/17 07:00 PT 21.0 SECONDS (9.4-12.5) H 08/13/17 07:00 INR 1.80 (0.93-1.08) H 08/13/17 07:00 APTT 40.6 Seconds (25.1-36.5) H 08/13/17 07:00 - Constitutional Appears: No Acute Distress - Head Exam Head Exam: ATRAUMATIC, NORMAL INSPECTION, NORMOCEPHALIC - Eye Exam Eye Exam: Normal appearance Pupil Exam: NORMAL ACCOMODATION - ENT Exam ENT Exam: Mucous Membranes Moist - Respiratory Exam Respiratory Exam: Clear to Ausculation Bilateral, NORMAL BREATHING PATTERN. absent: Rales, Rhonchi, Wheezes - Cardiovascular Exam Cardiovascular Exam: REGULAR RHYTHM, +S1, +S2. absent: Gallop, Rubs, Murmur - GI/Abdominal Exam GI & Abdominal Exam: Soft, Tenderness (RUQ and RLQ tenderness ), Normal Bowel Sounds - Extremities Exam Extremities Exam: Pedal Edema. absent: Calf Tenderness - Neurological Exam Neurological Exam: Alert, Awake, CN II-XII Intact, Oriented x3 - Psychiatric Exam Psychiatric exam: Normal Affect, Normal Mood - Skin Skin Exam: Dry, Warm Assessment and Plan - Assessment and Plan (Free Text) Assessment: This is a 82yo female with past medical history of HTN, COPD, cirrhosis who was admitted for 1. Abdominal pain (R Sided)- improving - Secondary to ischemia v. infectious etiology - CT showed possible colitis of the cecum/transverse colon 2. Cirrhosis - can be secondary to ESPINOZA - EGD in past showed grade I esophageal varices 3. Back pain (resolved) - XR of hip/pelvis and lumbar spine showed no acute findings. 4. Hx of cholecystitis 5. HTN 6. COPD Plan: Will obtain abdominal duplex U/S of celiac and mesenteric arteries to rule out ischemia. After will advance diet to full liquid. Can decreased back down to clear liquid if patient does not tolerate. Stop PPI due to thrombocytopenia. Recommend SCDs for DVT prophylaxis. Will discuss case with Hospitalist team. Case seen, discussed and reviewed with Dr. Kemp. Roly Perez PGY2
[2017-08-14 07:10] LABS: ALB/GLOB RATIO 0.8 (1.1-1.8); ALBUMIN 2.3 g/dL (3.0-4.8); ALT/SGPT 41 U/L (7-56); AST/SGOT 49 U/L (14-36); BLOOD UREA NITROGEN 8 mg/dL (7-21); CALCIUM 7.6 mg/dL (8.4-10.5); GFR AFRICAN-AMERICAN > 60; GFR NON-AFRICAN AMERICAN > 60
[2017-08-14 07:20] LABS: PLATELET COUNT 39 10^3/uL (120.0-450.0)
[2017-08-14] MEDS: cefTRIAXone 1 gm 1 GM/100 ML BAG IVPB SCH (09:34)
--- NOTE | 2017-08-14 12:16 | CP.PCM.PN ---
<Nikolas Bowers - Last Filed: 08/14/17 13:59> Subjective - Date & Time of Evaluation Date of Evaluation: 08/14/17 Time of Evaluation: 07:00 - Subjective Subjective: Patient seen and examined at bedside in no acute distress. States her abdominal pain has completely resolved. Denies abdominal pain, nausea, vomiting, diarrhea , chest pain, shortness of breath, headache, cough. Objective - Vital Signs/Intake and Output Vital Signs (last 24 hours): Temp Pulse Resp BP Pulse Ox 98.0 F 79 20 121/70 95 08/14/17 06:00 08/14/17 06:00 08/14/17 06:00 08/14/17 06:00 08/14/17 06:00 Intake and Output: 08/14/17 08/14/17 06:59 18:59 Intake Total 720 950 Balance 720 950 - Medications Medications: Current Medications Acetaminophen (Tylenol 325mg Tab) 650 mg PO Q6H PRN PRN Reason: Fever >100.4 F Albuterol/Ipratropium (Duoneb 3 Mg/0.5 Mg (3 Ml) Ud) 3 ml IH [id number] PRN PRN Reason: Shortness of Breath Lactated Ringer's (Lactated Ringer's) 1,000 mls @ 75 mls/hr IV .[id number] [facility] Last Admin: 08/14/17 03:00 Dose: 75 mls/hr Metronidazole (Flagyl) 500 mg in 100 mls @ 100 mls/hr IVPB Q8 DELPHINE PRN Reason: Protocol Last Admin: 08/14/17 05:28 Dose: 100 mls/hr Ceftriaxone Sodium (Rocephin 1 Gram Ivpb) 1 gm in 100 mls @ 100 mls/hr IVPB DAILY DELPHINE PRN Reason: Protocol Last Admin: 08/14/17 09:34 Dose: 100 mls/hr Morphine Sulfate (Morphine) 2 mg IVP Q4H PRN PRN Reason: Pain, severe (8-10) Last Admin: 08/13/17 17:36 Dose: 2 mg Ondansetron HCl (Zofran Inj) 4 mg IVP Q6H PRN PRN Reason: Nausea/Vomiting - Labs Labs: 08/14/17 05:30 08/14/17 05:30 PT 21.0 SECONDS (9.4-12.5) H 08/13/17 07:00 INR 1.80 (0.93-1.08) H 08/13/17 07:00 APTT 40.6 Seconds (25.1-36.5) H 08/13/17 07:00 - Head Exam Head Exam: ATRAUMATIC, NORMAL INSPECTION, NORMOCEPHALIC - Eye Exam Eye Exam: EOMI, Normal appearance - ENT Exam ENT Exam: Mucous Membranes Moist, Normal Exam - Neck Exam Neck Exam: Full ROM - Respiratory Exam Respiratory Exam: Clear to Ausculation Bilateral, NORMAL BREATHING PATTERN. absent: Rhonchi, Wheezes - Cardiovascular Exam Cardiovascular Exam: REGULAR RHYTHM, +S1, +S2 - GI/Abdominal Exam GI & Abdominal Exam: Soft, Normal Bowel Sounds. absent: Tenderness - Extremities Exam Extremities Exam: Full ROM, Normal Inspection - Back Exam Back Exam: NORMAL INSPECTION - Neurological Exam Neurological Exam: Alert, Awake, Oriented x3 - Psychiatric Exam Psychiatric exam: Normal Affect, Normal Mood - Skin Skin Exam: Normal Color, Warm Assessment and Plan - Assessment and Plan (Free Text) Assessment: Patient is an 82 year old female with a past medical history of COPD, rheumatoid arthritis, DM on diet control, hypertension, hyperlipidemia, ITP who presents to the emergency department with complaints of abdominal pain which began two days ago while at home relaxing found to have colitis and possible gastritis on CT abdomen/pelvis as well as urinary tract infection. Plan: Abdominal pain secondary to Colitis r/o ischemic etiology -GI consulted -Abdominal doppler studies to r/o ischemia of CA, OLU, SMA -Will advance diet to full liquids pending results of abdominal US -Continue with Rocephin and Flagyl -Zofran PRN for nausea -Stool occult, Fecal leukocytes, Stool cultures, C diff cultures pending -Continue to monitor CBC, CMP, PT/PTT -Blood cultures reveal no growth after 24 hours UTI -Positive on UA -Continue with antibiotic regimen -Urine culture and sensitivity repeat done; results pending Anemia -Iron and TIBC normal -Transferrin 168 -Ferritin within normal limits, folate within normal limits, and Vitamin B12 > 1000 Hypertension -Currently controlled -Will continue to monitor and medicate appropriately COPD -Duonebs -NC 2L GI prophylaxis: will hold off on protonix DVT prophylaxis: mechanical for now, will hold off on pharmacological <Amanda Jacobs - Last Filed: 08/15/17 16:08> Objective - Vital Signs/Intake and Output Vital Signs (last 24 hours): Temp Pulse Resp BP Pulse Ox 97.5 F L 80 20 148/78 96 08/15/17 06:00 08/15/17 06:00 08/15/17 06:00 08/15/17 06:00 08/15/17 06:00 Intake and Output: 08/15/17 08/15/17 06:59 18:59 Intake Total 960 760 Balance 960 760 - Labs Labs: 08/15/17 06:30 08/15/17 06:30 PT 21.0 SECONDS (9.4-12.5) H 08/13/17 07:00 INR 1.80 (0.93-1.08) H 08/13/17 07:00 APTT 40.6 Seconds (25.1-36.5) H 08/13/17 07:00 Attending/Attestation - Attestation I have personally seen and examined this patient.: Yes I have fully participated in the care of the patient.: Yes I have reviewed all pertinent clinical information, including history, physical exam and plan: Yes Notes (Text): 08/15/17 16:07 Medical record note made by the resident after discussion with my direction and input after the patient was personally seen and examined by me. I have reviewed the chart and agree that the record accurately reflects by personal performance of the history, physical exam, data review, and medical decision-making, in the course for the patient. I have also personally directed the plan of care.
--- NOTE | 2017-08-14 15:32 | US ---
PROCEDURE: Duplex ultrasound of the mesenteric arteries. HISTORY: Abdominal pain. Evaluate for mesenteric ischemia. PHYSICIAN(S): David Larkin MD. TECHNIQUE: Duplex sonography with color-flow Doppler was used to evaluate limited segments of the abdominal aorta and proximal segments of the mesenteric arteries. FINDINGS: The exam is very limited by bowel gas and movement. The proximal SMA is well seen. Peak systolic velocity in the proximal SMA is 153 cm/second. This corresponds to a 0-49 percent proximal SMA stenosis. The proximal celiac axis is not well visualized. Peak systolic velocity in the proximal celiac axis is 78 cm/second. This corresponds to a 0-49 percent proximal celiac axis stenosis. The proximal OLU is not visualized. IMPRESSION: 1. Limited study. 2. The proximal SMA is widely patent. 3. The proximal celiac axis and OLU are not well seen.
[2017-08-15] MEDS: metroNIDAZOLE IV 500 mg/100 ml 500 MG/100 ML BAG IVPB SCH ×2 (05:26→14:00)
[2017-08-15 06:58] LABS: BASO # 0.02 K/mm3 (0.0-2.0); BASO % 0.6 % (0.0-3.0); EOS # 0.2 (0.0-0.7); EOS % 6.2 % (1.5-5.0); GRAN # 1.75 (1.4-6.5); GRAN % 54.2 % (50.0-68.0); HEMOGLOBIN 10.5 g/dL (12.0-16.0); LYMPH # 0.9 (1.2-3.4); LYMPH % 27.9 % (22.0-35.0); MEAN CELL VOLUME 100.3 fl (80.0-105.0); MEAN CORPUSCULAR HEMOGLOBIN 33.9 pg (25.0-35.0); MEAN CORPUSCULAR HGB CONC 33.8 g/dl (31.0-37.0); MEAN PLATELET VOLUME 12.4 fl (7.0-11.0); MONO # 0.4 (0.1-0.6); MONO % 11.1 % (1.0-6.0); RED CELL DISTRIBUTION WIDTH 15.2 % (11.5-14.5); WHITE BLOOD COUNT 3.2 10^3/ul (4.5-11.0)
[2017-08-15 07:23] LABS: ALB/GLOB RATIO 0.8 (1.1-1.8); ALBUMIN 2.3 g/dL (3.0-4.8); ALT/SGPT 41 U/L (7-56); AST/SGOT 49 U/L (14-36); BLOOD UREA NITROGEN 6 mg/dL (7-21); CALCIUM 7.7 mg/dL (8.4-10.5); GFR AFRICAN-AMERICAN > 60; GFR NON-AFRICAN AMERICAN > 60
[2017-08-15 07:40] LABS: PLATELET COUNT 49 10^3/uL (120.0-450.0)
[2017-08-15 07:43] VITALS: BP 148/78; PULSE 80; TEMP 97.5; O2SAT 96
--- NOTE | 2017-08-15 08:05 | CP.PCM.PN ---
Subjective - Date & Time of Evaluation Date of Evaluation: 08/15/17 Time of Evaluation: 07:00 - Subjective Subjective: GI Progress Note for Roly Adair PGY2 Patient seen and examined at bedside. As per nursing staff, there were no acute overnight events. Patient had small amount of diarrhea overnight. Patient reports feeling dizzy today. She does have history of vertigo and feels dizzy when moving her head in certain directions. She takes Meclizine at home as needed. Otherwise, patient denies chest pain, shortness of breath, abdominal pain, nausea/vomiting, fever/chills, numbness or tingling. Objective - Vital Signs/Intake and Output Vital Signs (last 24 hours): Temp Pulse Resp BP Pulse Ox 97.5 F L 80 20 148/78 96 08/15/17 06:00 08/15/17 06:00 08/15/17 06:00 08/15/17 06:00 08/15/17 06:00 Intake and Output: 08/15/17 08/15/17 06:59 18:59 Intake Total 960 Balance 960 - Medications Medications: Current Medications Acetaminophen (Tylenol 325mg Tab) 650 mg PO Q6H PRN PRN Reason: Fever >100.4 F Albuterol/Ipratropium (Duoneb 3 Mg/0.5 Mg (3 Ml) Ud) 3 ml IH [id number] PRN PRN Reason: Shortness of Breath Metronidazole (Flagyl) 500 mg in 100 mls @ 100 mls/hr IVPB Q8 DELPHINE PRN Reason: Protocol Last Admin: 08/15/17 05:26 Dose: 100 mls/hr Ceftriaxone Sodium (Rocephin 1 Gram Ivpb) 1 gm in 100 mls @ 100 mls/hr IVPB DAILY DELPHINE PRN Reason: Protocol Last Admin: 08/14/17 09:34 Dose: 100 mls/hr Meclizine HCl (Antivert) 12.5 mg PO BID PRN PRN Reason: Dizziness Morphine Sulfate (Morphine) 2 mg IVP Q4H PRN PRN Reason: Pain, severe (8-10) Last Admin: 08/13/17 17:36 Dose: 2 mg Ondansetron HCl (Zofran Inj) 4 mg IVP Q6H PRN PRN Reason: Nausea/Vomiting - Labs Labs: 08/15/17 06:30 08/15/17 06:30 PT 21.0 SECONDS (9.4-12.5) H 08/13/17 07:00 INR 1.80 (0.93-1.08) H 08/13/17 07:00 APTT 40.6 Seconds (25.1-36.5) H 08/13/17 07:00 - Constitutional Appears: No Acute Distress - Head Exam Head Exam: ATRAUMATIC, NORMAL INSPECTION, NORMOCEPHALIC - Eye Exam Eye Exam: Normal appearance, PERRL Pupil Exam: NORMAL ACCOMODATION - ENT Exam ENT Exam: Mucous Membranes Moist - Respiratory Exam Respiratory Exam: Clear to Ausculation Bilateral, NORMAL BREATHING PATTERN. absent: Rales, Rhonchi, Wheezes - Cardiovascular Exam Cardiovascular Exam: REGULAR RHYTHM, +S1, +S2. absent: Gallop, Rubs, Murmur - GI/Abdominal Exam GI & Abdominal Exam: Soft, Normal Bowel Sounds. absent: Rigid, Tenderness, Mass , Rebound - Neurological Exam Neurological Exam: Alert, Awake, CN II-XII Intact - Skin Skin Exam: Dry, Warm Assessment and Plan - Assessment and Plan (Free Text) Assessment: This is a 82yo female with past medical history of HTN, COPD, cirrhosis, vertigo who was admitted for 1. Abdominal pain (R Sided)- improving - Secondary to ischemia v. infectious etiology - CT showed possible colitis of the cecum/transverse colon 2. Cirrhosis - can be secondary to ESPINOZA - EGD in past showed grade I esophageal varices 3. Back pain (resolved) - XR of hip/pelvis and lumbar spine showed no acute findings. 4. Hx of cholecystitis 5. HTN 6. COPD 7. Vertigo Plan: Abdominal ultrasound reviewed. OLU and celiac were not clearly visualized. Stool C.diff pending. Stool positive for leukocytes. Abdominal pain most likely secondary to colitis rather than ischemic. Will advance diet to soft and see if patient tolerates. Meclizine as needed for vertigo. Recommend SCDs for DVT prophylaxis. Discussed case with hospitalist team. Case seen, discussed and reviewed with Dr. Kemp. Roly Perez PGY2
[2017-08-15] MEDS: cefTRIAXone 1 gm 1 GM/100 ML BAG IVPB SCH (09:56)
--- NOTE | 2017-08-15 12:11 | US ---
PROCEDURE: Left upper extremity venous ultrasound HISTORY: Arm pain and swelling. Evaluate for deep venous thrombosis. PHYSICIAN(S): David Larkin MD. FINDINGS: The visualized leftinternal jugular vein is sonographically normal and compressible. No evidence of obstruction or thrombus is seen. The visualized segments of the left subclavian vein are patent with normal waveforms. No sonographic evidence of obstruction or thrombosis is seen. The visualized deep venous system of the proximal leftupper extremity is sonographically normal and compressible. IMPRESSION: 1. No sonographic evidence for deep venous thrombosis in the visualized segments of the left upper extremity.
--- NOTE | 2017-08-15 15:25 | CP.PCM.DIS ---
<Nikolas Bowers - Last Filed: 08/15/17 15:26> Provider - Provider Date of Admission: 08/12/17 20:50 Attending physician: Amanda Jacobs MD Primary care physician: Mohan Edwards MD Consults: Gastroenterology: Dr. Kemp Time Spent in preparation of Discharge (in minutes): 40 Diagnosis - Discharge Diagnosis (1) Colitis Status: Acute Priority: High (2) Sepsis Status: Acute Priority: High (3) Urinary tract infection Status: Acute Priority: High (4) Cirrhosis Status: Chronic Priority: High (5) Chronic ITP (idiopathic thrombocytopenia) Status: Chronic Priority: Medium (6) Rheumatoid arthritis Status: Chronic Priority: Medium Hospital Course - Lab Results Lab Results: Micro Results 08/13/17 18:16 Urine,Clean Catch Urine Culture - Final No Growth (<1,000 CFU/ML) Most Recent Lab Values WBC 3.2 10^3/ul (4.5-11.0) L D 08/15/17 06:30 RBC 3.10 10^6/uL (3.5-6.1) L 08/15/17 06:30 Hgb 10.5 g/dL (12.0-16.0) L 08/15/17 06:30 Hct 31.1 % (36.0-48.0) L 08/15/17 06:30 MCV 100.3 fl (80.0-105.0) 08/15/17 06:30 MCH 33.9 pg (25.0-35.0) 08/15/17 06:30 MCHC 33.8 g/dl (31.0-37.0) 08/15/17 06:30 RDW 15.2 % (11.5-14.5) H 08/15/17 06:30 Plt Count 49 10^3/uL (120.0-450.0) L* 08/15/17 06:30 MPV 12.4 fl (7.0-11.0) H 08/15/17 06:30 Gran % 54.2 % (50.0-68.0) 08/15/17 06:30 Lymph % (Auto) 27.9 % (22.0-35.0) 08/15/17 06:30 Keith % (Auto) 11.1 % (1.0-6.0) H 08/15/17 06:30 Eos % (Auto) 6.2 % (1.5-5.0) H 08/15/17 06:30 Baso % (Auto) 0.6 % (0.0-3.0) 08/15/17 06:30 Gran # 1.75 (1.4-6.5) 08/15/17 06:30 Lymph # (Auto) 0.9 (1.2-3.4) L 08/15/17 06:30 Keith # (Auto) 0.4 (0.1-0.6) 08/15/17 06:30 Eos # (Auto) 0.2 (0.0-0.7) 08/15/17 06:30 Baso # (Auto) 0.02 K/mm3 (0.0-2.0) 08/15/17 06:30 Platelet Evaluation Low (NORMAL) 08/12/17 13:46 PT 21.0 SECONDS (9.4-12.5) H 08/13/17 07:00 INR 1.80 (0.93-1.08) H 08/13/17 07:00 APTT 40.6 Seconds (25.1-36.5) H 08/13/17 07:00 pO2 31 mm/Hg (30-55) 08/12/17 13:46 VBG pH 7.39 (7.32-7.43) 08/12/17 13:46 VBG pCO2 40.0 (40-60) 08/12/17 13:46 VBG HCO3 24.2 mmol/l (21-28) 08/12/17 13:46 VBG Total CO2 25.4 mmol.L (22-28) 08/12/17 13:46 VBG O2 Sat (Calc) 68.6 % (40-65) H 08/12/17 13:46 VBG Base Excess -0.7 mmol/L (0.0-2.0) L 08/12/17 13:46 VBG Potassium 3.8 mmol/L (3.6-5.2) 08/12/17 13:46 Sodium 138.0 mmol/L (132-148) 08/12/17 13:46 Chloride 109.0 mmol/L (98-107) H 08/12/17 13:46 Glucose 160 mg/dl (65-105) H 08/12/17 13:46 Lactate 1.8 mmol/L (0.7-2.1) 08/12/17 13:46 FiO2 21.0 % 08/12/17 13:46 Sodium 143 mmol/L (132-148) 08/15/17 06:30 Potassium 3.8 mmol/L (3.6-5.0) 08/15/17 06:30 Chloride 111 mmol/L (98-107) H 08/15/17 06:30 Carbon Dioxide 27 mmol/L (21-33) 08/15/17 06:30 Anion Gap 9 (10-20) L 08/15/17 06:30 BUN 6 mg/dL (7-21) L 08/15/17 06:30 Creatinine 0.5 mg/dl (0.7-1.2) L 08/15/17 06:30 Est GFR ( Amer) > 60 08/15/17 06:30 Est GFR (Non-Af Amer) > 60 08/15/17 06:30 Random Glucose 75 mg/dL (70-110) 08/15/17 06:30 Calcium 7.7 mg/dL (8.4-10.5) L 08/15/17 06:30 Phosphorus 3.2 mg/dL (2.5-4.5) 08/13/17 07:00 Magnesium 1.9 mg/dL (1.7-2.2) 08/13/17 07:00 Iron 91 ug/dL (45-180) 08/12/17 21:46 TIBC 293 ug/dL (265-497) 08/12/17 21:46 % Saturation 31 % (20-55) 08/12/17 21:46 Transferrin 168.03 mg/dL (206-381) L 08/13/17 07:00 Ferritin 98.6 ng/mL 08/13/17 07:00 Total Bilirubin 2.2 mg/dL (0.2-1.3) H 08/15/17 06:30 AST 49 U/L (14-36) H 08/15/17 06:30 ALT 41 U/L (7-56) 08/15/17 06:30 Alkaline Phosphatase 95 U/L (38-126) 08/15/17 06:30 Troponin I < 0.01 ng/mL 08/12/17 13:46 NT-Pro-B Natriuret Pep 582 pg/mL (0-450) H 08/12/17 21:46 Total Protein 5.3 g/dL (5.8-8.3) L 08/15/17 06:30 Albumin 2.3 g/dL (3.0-4.8) L 08/15/17 06:30 Globulin 3.0 gm/dL 08/15/17 06:30 Albumin/Globulin Ratio 0.8 (1.1-1.8) L 08/15/17 06:30 Vitamin B12 > 1000 pg/mL (239-931) H 08/13/17 07:00 Folate 19.4 ng/mL 08/13/17 07:00 Procalcitonin 0.86 NG/ML (0.19-0.49) H 08/13/17 07:00 Venous Blood Potassium 3.8 mmol/L (3.6-5.2) 08/12/17 13:46 Urine Color Yellow (YELLOW) 08/12/17 13:46 Urine Appearance Cloudy (CLEAR) 08/12/17 13:46 Urine pH 7.0 (4.7-8.0) 08/12/17 13:46 Ur Specific [place] 1.020 (1.005-1.035) 08/12/17 13:46 Urine Protein 100 mg/dL (<30 mg/dL) H 08/12/17 13:46 Urine Glucose (UA) Negative mg/dL (NEGATIVE) 08/12/17 13:46 Urine Ketones Negative mg/dL (NEGATIVE) 08/12/17 13:46 Urine Blood Small (NEGATIVE) H 08/12/17 13:46 Urine Nitrate Negative (NEGATIVE) 08/12/17 13:46 Urine Bilirubin Negative (NEGATIVE) 08/12/17 13:46 Urine Urobilinogen 1.0 E.U./dL (<1 E.U./dL) H 08/12/17 13:46 Ur Leukocyte Esterase Moderate Teresita/uL (NEGATIVE) H 08/12/17 13:46 Urine RBC 0 - 2 /hpf (0-2) 08/12/17 13:46 Urine WBC Tntc /hpf (0-6) 08/12/17 13:46 Ur Epithelial Cells 10 - 12 /hpf (0-5) 08/12/17 13:46 Urine Bacteria Many (NEG) 08/12/17 13:46 Stool Leukocytes, Qual Positive (NEGATIVE) H 08/14/17 06:30 - Hospital Course Hospital Course: Patient is an 82 year old female with a past medical history of COPD, rheumatoid arthritis, cirrhosis, DM on diet control, hypertension, hyperlipidemia, ITP who presented to the emergency department with complaints of abdominal pain which began two days prior to admission while at home relaxing. Patient stated the pain is located initially in her epigastric region then radiated down to her legs bilaterally radiating to her toes. She also states the pain radiated directly to her back. She described the pain as sharp rating it a 8/10. Pain was exacerbated when palpated, and had no relieving factors thus far. Patient had also stated she experienced this exact feeling a few years back which also caused her to be admitted. As per patient's daughter who was at bedside patient had been eating raw rice as of late. Patient endorsed chills as well as two episodes of vomiting the day prior to admission. Denied any acute shortness of breath, chest pain, palpitations, nausea, headache. Patient was found to have colitis, gastritis, and UTI. During course of hospital stay patient received flagyl and rocephin for treatment of her colitis, gastritis and UTI. Patient exhibited some neutropenia therefore her rocephin was changed to levaquin. With resolving of her symptoms patient was cleared for discharge. Patient was evaluated by physical therapy prior to discharge which recommended patient be discharged to home. Case discussed and reviewed with Dr. Arlene Bowers PGY1 Discharge Exam - Head Exam Head Exam: ATRAUMATIC, NORMAL INSPECTION, NORMOCEPHALIC - Eye Exam Eye Exam: EOMI, Normal appearance - Respiratory Exam Respiratory Exam: NORMAL BREATHING PATTERN, UNREMARKABLE. absent: Rhonchi, Wheezes - Cardiovascular Exam Cardiovascular Exam: REGULAR RHYTHM, +S1, +S2 - GI/Abdominal Exam GI & Abdominal Exam: Normal Bowel Sounds, Unremarkable - Rectal Exam Rectal Exam: NORMAL INSPECTION - Neurological Exam Neurological exam: Alert, CN II-XII Intact, Oriented x3 - Psychiatric Exam Psychiatric exam: Normal Affect, Normal Mood - Skin Skin Exam: Intact, Normal Color, Warm Discharge Plan - Discharge Medications Prescriptions: Levofloxacin [Levaquin] 500 mg PO DAILY #11 tablet Metronidazole [Flagyl] 500 mg PO Q8H #34 tablet - Follow Up Plan Condition: FAIR Disposition: HOME/ ROUTINE Instructions: Heart Healthy Diet, Urinary Tract Infection, Adult (DC), Acute Abdomen (Belly Pain), Adult (DC) Additional Instructions: 1. Please follow up with your PMD within 3-5 days. 2. Please go to your pharmacy to fill your prescriptions and take medications as prescribed. 3. If symptoms return or worsen please be sure to go to the nearest emergency department. Referrals: Mohan Edwards MD [Primary Care Provider] - <Amanda Jacobs - Last Filed: 08/15/17 16:30> Provider - Provider Date of Admission: 08/12/17 20:50 Attending physician: Amanda Jacobs MD Primary care physician: Mohan Edwards MD Hospital Course - Lab Results Lab Results: Micro Results 08/13/17 18:16 Urine,Clean Catch Urine Culture - Final No Growth (<1,000 CFU/ML) Most Recent Lab Values WBC 3.2 10^3/ul (4.5-11.0) L D 08/15/17 06:30 RBC 3.10 10^6/uL (3.5-6.1) L 08/15/17 06:30 Hgb 10.5 g/dL (12.0-16.0) L 08/15/17 06:30 Hct 31.1 % (36.0-48.0) L 08/15/17 06:30 MCV 100.3 fl (80.0-105.0) 08/15/17 06:30 MCH 33.9 pg (25.0-35.0) 08/15/17 06:30 MCHC 33.8 g/dl (31.0-37.0) 08/15/17 06:30 RDW 15.2 % (11.5-14.5) H 08/15/17 06:30 Plt Count 49 10^3/uL (120.0-450.0) L* 08/15/17 06:30 MPV 12.4 fl (7.0-11.0) H 08/15/17 06:30 Gran % 54.2 % (50.0-68.0) 08/15/17 06:30 Lymph % (Auto) 27.9 % (22.0-35.0) 08/15/17 06:30 Keith % (Auto) 11.1 % (1.0-6.0) H 08/15/17 06:30 Eos % (Auto) 6.2 % (1.5-5.0) H 08/15/17 06:30 Baso % (Auto) 0.6 % (0.0-3.0) 08/15/17 06:30 Gran # 1.75 (1.4-6.5) 08/15/17 06:30 Lymph # (Auto) 0.9 (1.2-3.4) L 08/15/17 06:30 Keith # (Auto) 0.4 (0.1-0.6) 08/15/17 06:30 Eos # (Auto) 0.2 (0.0-0.7) 08/15/17 06:30 Baso # (Auto) 0.02 K/mm3 (0.0-2.0) 08/15/17 06:30 Platelet Evaluation Low (NORMAL) 08/12/17 13:46 PT 21.0 SECONDS (9.4-12.5) H 08/13/17 07:00 INR 1.80 (0.93-1.08) H 08/13/17 07:00 APTT 40.6 Seconds (25.1-36.5) H 08/13/17 07:00 pO2 31 mm/Hg (30-55) 08/12/17 13:46 VBG pH 7.39 (7.32-7.43) 08/12/17 13:46 VBG pCO2 40.0 (40-60) 08/12/17 13:46 VBG HCO3 24.2 mmol/l (21-28) 08/12/17 13:46 VBG Total CO2 25.4 mmol.L (22-28) 08/12/17 13:46 VBG O2 Sat (Calc) 68.6 % (40-65) H 08/12/17 13:46 VBG Base Excess -0.7 mmol/L (0.0-2.0) L 08/12/17 13:46 VBG Potassium 3.8 mmol/L (3.6-5.2) 08/12/17 13:46 Sodium 138.0 mmol/L (132-148) 08/12/17 13:46 Chloride 109.0 mmol/L (98-107) H 08/12/17 13:46 Glucose 160 mg/dl (65-105) H 08/12/17 13:46 Lactate 1.8 mmol/L (0.7-2.1) 08/12/17 13:46 FiO2 21.0 % 08/12/17 13:46 Sodium 143 mmol/L (132-148) 08/15/17 06:30 Potassium 3.8 mmol/L (3.6-5.0) 08/15/17 06:30 Chloride 111 mmol/L (98-107) H 08/15/17 06:30 Carbon Dioxide 27 mmol/L (21-33) 08/15/17 06:30 Anion Gap 9 (10-20) L 08/15/17 06:30 BUN 6 mg/dL (7-21) L 08/15/17 06:30 Creatinine 0.5 mg/dl (0.7-1.2) L 08/15/17 06:30 Est GFR ( Amer) > 60 08/15/17 06:30 Est GFR (Non-Af Amer) > 60 08/15/17 06:30 Random Glucose 75 mg/dL (70-110) 08/15/17 06:30 Calcium 7.7 mg/dL (8.4-10.5) L 08/15/17 06:30 Phosphorus 3.2 mg/dL (2.5-4.5) 08/13/17 07:00 Magnesium 1.9 mg/dL (1.7-2.2) 08/13/17 07:00 Iron 91 ug/dL (45-180) 08/12/17 21:46 TIBC 293 ug/dL (265-497) 08/12/17 21:46 % Saturation 31 % (20-55) 08/12/17 21:46 Transferrin 168.03 mg/dL (206-381) L 08/13/17 07:00 Ferritin 98.6 ng/mL 08/13/17 07:00 Total Bilirubin 2.2 mg/dL (0.2-1.3) H 08/15/17 06:30 AST 49 U/L (14-36) H 08/15/17 06:30 ALT 41 U/L (7-56) 08/15/17 06:30 Alkaline Phosphatase 95 U/L (38-126) 08/15/17 06:30 Troponin I < 0.01 ng/mL 08/12/17 13:46 NT-Pro-B Natriuret Pep 582 pg/mL (0-450) H 08/12/17 21:46 Total Protein 5.3 g/dL (5.8-8.3) L 08/15/17 06:30 Albumin 2.3 g/dL (3.0-4.8) L 08/15/17 06:30 Globulin 3.0 gm/dL 08/15/17 06:30 Albumin/Globulin Ratio 0.8 (1.1-1.8) L 08/15/17 06:30 Vitamin B12 > 1000 pg/mL (239-931) H 08/13/17 07:00 Folate 19.4 ng/mL 08/13/17 07:00 Procalcitonin 0.86 NG/ML (0.19-0.49) H 08/13/17 07:00 Venous Blood Potassium 3.8 mmol/L (3.6-5.2) 08/12/17 13:46 Urine Color Yellow (YELLOW) 08/12/17 13:46 Urine Appearance Cloudy (CLEAR) 08/12/17 13:46 Urine pH 7.0 (4.7-8.0) 08/12/17 13:46 Ur Specific [place] 1.020 (1.005-1.035) 08/12/17 13:46 Urine Protein 100 mg/dL (<30 mg/dL) H 08/12/17 13:46 Urine Glucose (UA) Negative mg/dL (NEGATIVE) 08/12/17 13:46 Urine Ketones Negative mg/dL (NEGATIVE) 08/12/17 13:46 Urine Blood Small (NEGATIVE) H 08/12/17 13:46 Urine Nitrate Negative (NEGATIVE) 08/12/17 13:46 Urine Bilirubin Negative (NEGATIVE) 08/12/17 13:46 Urine Urobilinogen 1.0 E.U./dL (<1 E.U./dL) H 08/12/17 13:46 Ur Leukocyte Esterase Moderate Teresita/uL (NEGATIVE) H 08/12/17 13:46 Urine RBC 0 - 2 /hpf (0-2) 08/12/17 13:46 Urine WBC Tntc /hpf (0-6) 08/12/17 13:46 Ur Epithelial Cells 10 - 12 /hpf (0-5) 08/12/17 13:46 Urine Bacteria Many (NEG) 08/12/17 13:46 Stool Leukocytes, Qual Positive (NEGATIVE) H 08/14/17 06:30 Attending/Attestation - Attestation I have personally seen and examined this patient.: Yes I have fully participated in the care of the patient.: Yes I have reviewed all pertinent clinical information, including history, physical exam and plan: Yes Notes (Text): 08/15/17 16:09 Medical record note made by the resident after discussion with my direction and input after the patient was personally seen and examined by me. I have reviewed the chart and agree that the record accurately reflects by personal performance of the history, physical exam, data review, and medical decision-making, in the course for the patient. I have also personally directed the plan of care. 82 year old female with a past medical history of COPD, rheumatoid arthritis, chronic liver disease, , hypertension, hyperlipidemia, chronic thrombocytopenia ,ITP? is admitted with abdominal pain due to ascending Colitis, has significant tenderness in the right lower quadrant, tolerating clear liquid. We will continue IV antibiotics.Case was discussed with ISELA Pate. Thrmobocytopenia is chronic.There is no evidence of bleeding, we will monitor. Management plan was discussed in detail with patient and family. Education was provided.
== END 2017-08-15 15:26 | disposition home or self-care (01) | DRG 872 ==
LOC: ED 12:20 → ERH 20:50 → 2RNO 22:40 → 5RNO 08-14 16:25
PROVIDERS: ADMIT Internal Medicine; ATTEND Internal Medicine
DX: A41.9 Sepsis, unspecified organism (principal); N39.0 Urinary tract infection, site not specified; D69.3 Immune thrombocytopenic purpura; I85.00 Esophageal varices without bleeding; J98.11 Atelectasis; K76.6 Portal hypertension; R18.8 Other ascites; D70.9 Neutropenia, unspecified; D86.9 Sarcoidosis, unspecified; E11.21 Type 2 diabetes mellitus with diabetic nephropathy; E11.22 Type 2 diabetes mellitus with diabetic chronic kidney disease; E55.9 Vitamin D deficiency, unspecified; E78.5 Hyperlipidemia, unspecified; G47.30 Sleep apnea, unspecified; E11.42 Type 2 diabetes mellitus with diabetic polyneuropathy; I51.7 Cardiomegaly; J43.9 Emphysema, unspecified; K21.9 Gastro-esophageal reflux disease without esophagitis; K29.70 Gastritis, unspecified, without bleeding; K44.9 Diaphragmatic hernia without obstruction or gangrene; K52.9 Noninfective gastroenteritis and colitis, unspecified; K57.90 Diverticulosis of intestine, part unspecified, without perforation or abscess without bleeding; I12.9 Hypertensive chronic kidney disease with stage 1 through stage 4 chronic kidney disease, or unspecified chronic kidney disease; N18.9 Chronic kidney disease, unspecified; K64.8 Other hemorrhoids; K74.60 Unspecified cirrhosis of liver; K75.81 Nonalcoholic steatohepatitis (NASH); M06.9 Rheumatoid arthritis, unspecified; M81.0 Age-related osteoporosis without current pathological fracture; Z86.73 Personal history of transient ischemic attack (TIA), and cerebral infarction without residual deficits; Z87.891 Personal history of nicotine dependence; Z90.49 Acquired absence of other specified parts of digestive tract

== ENCOUNTER 2017-09-04 18:55 | Emergency (ER) | payer MEDICARE ==
[2017-09-04 19:00] VITALS: RESP 18; BMI 34.0
--- NOTE | 2017-09-04 19:16 | ED PDOC ---
Arrival/HPI - General Time Seen by Provider: 09/04/17 19:09 - History of Present Illness Narrative History of Present Illness (Text): 82 y/o F c PMHx COPD, HTN, HLD, DM, ITP, RA, recent admitted for UTI/colitis sepsis p/w R leg pain and swelling x 7 days. Patient states she has had pain in this R leg for months and has had XRs which showed no fracture in the past. After returning home from her admission about 8 days ago, the patient states the pain became more severe. She denies any new trauma, fever, dyspnea, chest pain, vomiting. She notes that the swelling is increasing. Past Medical History - Infectious Disease Hx of Infectious Diseases: None - Tetanus Immunization Tetanus Immunization: Unknown - Cardiac Hx Cardiac Disorders: Yes Hx Hypertension: Yes - Pulmonary Hx Respiratory Disorders: Yes Hx Chronic Obstructive Pulmonary Disease (COPD): Yes - Neurological Hx Neurological Disorder: Yes Hx Dizziness: Yes Hx Transient Ischemic Attacks (TIA): Yes - HEENT Hx HEENT Disorder: Yes Hx Cataracts: Yes (REMOVED GERALDINE.) - Renal Hx Renal Disorder: Yes Other/Comment: DIABETIC NEPHROSIS - Endocrine/Metabolic Hx Endocrine Disorders: Yes Hx Diabetes Mellitus Type 2: Yes (OFF MEDICATIONS AT PRESENT) - Hematological/Oncological Hx Blood Disorders: Yes Hx Anemia: Yes Hx Cirrhosis: Yes (AND THROMBOCYTOPENIA) Other/Comment: HYPOVITAMINOSIS D. IDIOPATHIC PURPURA - Integumentary Hx Dermatological Disorder: Yes Other/Comment: SCATTERED BRUISES - Musculoskeletal/Rheumatological Hx Musculoskeletal Disorders: Yes Hx Arthritis: Yes Hx Rheumatoid Arthritis: Yes - Gastrointestinal Hx Gastrointestinal Disorders: Yes Hx Gall Bladder Disease: Yes Hx Gastroesophageal Reflux: Yes Other/Comment: Cirrhosis - Genitourinary/Gynecological Hx Genitourinary Disorders: No - Psychiatric Hx Psychophysiologic Disorder: Yes Hx Anxiety: Yes Hx Depression: Yes (RECENT LOSS OF MOTHER ) Hx Substance Use: No - Surgical History Hx Cholecystectomy: Yes Other/Comment: LIVER BIOPSY - Anesthesia Hx Anesthesia: Yes Hx Anesthesia Reactions: No Hx Malignant Hyperthermia: No - Suicidal Assessment Feels Threatened In Home Enviroment: No Family/Social History Family/Social History: No Known Family HX Smoking Status: Never Smoked Hx Alcohol Use: No Hx Substance Use: No Hx Substance Use Treatment: No Allergies/Home Meds Allergies/Adverse Reactions: Allergies No Known Allergies Allergy (Verified 09/04/17 19:42) Home Medications: Home Meds Medication Instructions Recorded Confirmed Albuterol 0.5% [Albuterol 0.5% 2.5 mg PO Q4 PRN 11/10/14 09/04/17 Inhal Ankita (2.5 mg/0.5 ml) UD] Esomeprazole Magnesium [Nexium] 40 mg PO DAILY 11/10/14 09/04/17 Valsartan [Diovan] 320 mg PO DAILY 05/27/15 09/04/17 Arformoterol [Brovana] 15 mcg IH BID 12/05/16 09/04/17 Meloxicam [Mobic] 15 mg PO TID 09/04/17 09/04/17 Review of Systems - Physician Review All systems were reviewed & negative as marked: Yes - Review of Systems Constitutional: absent: Fevers Respiratory: absent: SOB Cardiovascular: absent: Chest Pain Physical Exam - Physical Exam Narrative Physical Exam (Text): Gen: NAD Head: NC Eyes: No scleral icterus ENT: MMM Neck: Supple CV: Regular rate Lungs: CTA b/l Abd: Soft, NT Back: No CVA tenderness Skin: No rash Extremities: R lower leg edema Neuro: Alert, no focal deficit Vital Signs Temp Pulse Resp BP Pulse Ox 09/04/17 18:57 98.7 F 97 H 18 147/78 98 Medical Decision Making ED Course and Treatment: Patient with longstanding R lower leg pain, but with acute worsening after inpatient hospitalization, will require DVT rule out. Ordered doppler. Patient has appointment with David Larkin for tomorrow. US negative for DVT. Prescribed Oxycodone, advised on risk, SUPERVISORY CBP OFFICER checked. - RAD Interpretation Radiology Orders: 09/04/17 19:14 DUPLEX LOWER EXTRM VEIN RIGHT [US] Stat Disposition/Present on Arrival - Present on Arrival Any Indicators Present on Arrival: No History of DVT/PE: No History of Uncontrolled Diabetes: No Urinary Catheter: No History of Decub. Ulcer: No History Surgical Site Infection Following: None - Disposition Have Diagnosis and Disposition been Completed?: Yes Diagnosis: Leg pain Disposition: HOME/ ROUTINE Disposition Time: 20:42 Patient Plan: Discharge Condition: STABLE Discharge Instructions (ExitCare): Muscle and Bone Pain (DC) Prescriptions: oxyCODONE [oxyCODONE Immediate Release Tab] 1 tab PO Q4H PRN #12 tab PRN Reason: Pain, Severe (8-10) Referrals: Mohan Edwards MD [Primary Care Provider] - Follow up with primary
[2017-09-04] MEDS ORDERED: oxyCODONE 5 mg Immediate Release Tab PO STA (21:03)
[2017-09-04 22:21] VITALS: BP 154/69; PULSE 90; TEMP 98.7; O2SAT 99
--- NOTE | 2017-09-05 10:13 | US ---
PROCEDURE: Right lower extremity venous US HISTORY: Leg pain and swelling. Evaluate for DVT. PHYSICIAN(S): David Larkin M.D. TECHNIQUE: Duplex sonography and color-flow Doppler with graded compression were used to evaluate the deep venous system of the right lower extremity. The exam is limited by body habitus and edema FINDINGS: The visualized deep venous system of the right lower extremity is sonographically normal and compressible. Normal waveforms and augmentation are seen. There is no sonographic evidence for deep venous thrombosis in the visualized segments of the right lower extremity. IMPRESSION: 1. No sonographic evidence for deep venous thrombosis in the visualized segments of the right lower extremity.
== END 2017-09-04 21:44 | disposition home or self-care (01) ==
LOC: ED 18:55
DX: M79.604 Pain in right leg (principal); E78.5 Hyperlipidemia, unspecified; I10 Essential (primary) hypertension; M06.9 Rheumatoid arthritis, unspecified; E11.9 Type 2 diabetes mellitus without complications

== ENCOUNTER 2017-09-06 18:00 | Emergency (ER) | payer MEDICARE ==
[2017-09-06 18:01] VITALS: BMI 34.0
[2017-09-06] MEDS ORDERED: Morphine 4 mg/ml ISec IM STA (18:34)
--- NOTE | 2017-09-06 18:34 | ED PDOC ---
Arrival/HPI - General Time Seen by Provider: 09/06/17 18:25 Historian: Patient - History of Present Illness Narrative History of Present Illness (Text): 09/06/17 18:27 82 y/o female, pmh including RA/DM/HTN/HLD/ITP/Colitis/Cirrhosis/COPD, nkda, c/ o bilateral lower extremity pain with more worsened on the RLE with no recent injury or trauma. Pt. stated that she has chronic bilateral lower extremity pain for over months with rt. more worsened pain than the left, seen in the ER about 2 days ago which she discharge home with nsaids and oxycodone with limited relief, stated that the pain persist, no change in temperature or coloring of the lower extremity, no numbness or tingling, no night sweat, no chest pain or shortness of breath. Past Medical History - Provider Review Nursing Documentation Reviewed: Yes - Infectious Disease Hx of Infectious Diseases: None - Tetanus Immunization Tetanus Immunization: Unknown - Cardiac Hx Cardiac Disorders: Yes Hx Hypertension: Yes - Pulmonary Hx Respiratory Disorders: Yes Hx Chronic Obstructive Pulmonary Disease (COPD): Yes - Neurological Hx Neurological Disorder: Yes Hx Dizziness: Yes Hx Transient Ischemic Attacks (TIA): Yes - HEENT Hx HEENT Disorder: Yes Hx Cataracts: Yes (REMOVED GERALDINE.) - Renal Hx Renal Disorder: Yes Other/Comment: DIABETIC NEPHROSIS - Endocrine/Metabolic Hx Endocrine Disorders: Yes Hx Diabetes Mellitus Type 2: Yes (OFF MEDICATIONS AT PRESENT) - Hematological/Oncological Hx Blood Disorders: Yes Hx Anemia: Yes Hx Cirrhosis: Yes (AND THROMBOCYTOPENIA) Other/Comment: HYPOVITAMINOSIS D. IDIOPATHIC PURPURA - Integumentary Hx Dermatological Disorder: Yes Other/Comment: SCATTERED BRUISES - Musculoskeletal/Rheumatological Hx Musculoskeletal Disorders: Yes Hx Arthritis: Yes Hx Rheumatoid Arthritis: Yes - Gastrointestinal Hx Gastrointestinal Disorders: Yes Hx Gall Bladder Disease: Yes Hx Gastroesophageal Reflux: Yes Other/Comment: Cirrhosis - Genitourinary/Gynecological Hx Genitourinary Disorders: No - Psychiatric Hx Psychophysiologic Disorder: Yes Hx Anxiety: Yes Hx Depression: Yes (RECENT LOSS OF MOTHER ) Hx Substance Use: No - Surgical History Hx Cholecystectomy: Yes Other/Comment: LIVER BIOPSY - Anesthesia Hx Anesthesia: Yes Hx Anesthesia Reactions: No Hx Malignant Hyperthermia: No - Suicidal Assessment Feels Threatened In Home Enviroment: No Family/Social History - Physician Review Nursing Documentation Reviewed: Yes Family/Social History: Unknown Family HX Smoking Status: Never Smoked Hx Alcohol Use: No Hx Substance Use: No Hx Substance Use Treatment: No Allergies/Home Meds Allergies/Adverse Reactions: Allergies No Known Allergies Allergy (Verified 09/04/17 19:42) Home Medications: Home Meds Medication Instructions Recorded Confirmed Albuterol 0.5% [Albuterol 0.5% 2.5 mg PO Q4 PRN 11/10/14 09/04/17 Inhal Ankita (2.5 mg/0.5 ml) UD] Esomeprazole Magnesium [Nexium] 40 mg PO DAILY 11/10/14 09/04/17 Valsartan [Diovan] 320 mg PO DAILY 05/27/15 09/04/17 Arformoterol [Brovana] 15 mcg IH BID 12/05/16 09/04/17 Meloxicam [Mobic] 15 mg PO TID 09/04/17 09/04/17 Review of Systems - Review of Systems Constitutional: absent: Fatigue, Fevers Eyes: absent: Vision Changes ENT: absent: Hearing Changes Respiratory: absent: SOB, Cough Cardiovascular: absent: Chest Pain Gastrointestinal: absent: Abdominal Pain Musculoskeletal: Arthralgias, Myalgias. absent: Back Pain, Neck Pain, Joint Swelling Skin: absent: Rash, Pruritis Neurological: absent: Headache, Dizziness Psychiatric: absent: Anxiety, Depression Physical Exam Vital Signs Temp Pulse Resp BP Pulse Ox 09/06/17 20:56 97.7 F 18 99 09/06/17 20:55 97.7 F 09/06/17 20:15 74 18 141/74 98 09/06/17 19:00 149/87 Pain Distress: Severe - Systems Exam Head: Present: Atraumatic, Normocephalic Pupils: Present: PERRL Extroacular Muscles: Present: EOMI Conjunctiva: Present: Normal Mouth: Present: Moist Mucous Membranes Neck: Present: Normal Range of Motion Respiratory/Chest: Present: Clear to Auscultation, Good Air Exchange. No: Respiratory Distress, Accessory Muscle Use Cardiovascular: Present: Regular Rate and Rhythm, Normal S1, S2. No: Murmurs Abdomen: No: Tenderness, Distention, Peritoneal Signs Back: Present: Normal Inspection Upper Extremity: Present: Normal Inspection. No: Cyanosis, Edema Lower Extremity: Present: Normal Inspection, NORMAL PULSES, Normal ROM, Neurovascularly Intact, Capillary Refill < 2 s. No: Edema, CALF TENDERNESS, Kristian's Sign, Tenderness, Swelling, Deformity Neurological: Present: GCS=15, CN II-XII Intact, Speech Normal, Motor Func Grossly Intact, Gait Normal, Memory Normal Skin: Present: Warm, Dry, Normal Color. No: Rashes Psychiatric: Present: Alert, Oriented x 3, Normal Insight, Normal Concentration Medical Decision Making ED Course and Treatment: 09/06/17 18:44 Differential: DVT vs. CHF vs. Rhabdomylosis vs. Arthiritis -labs -bilateral lower extremities venuous doppler -Bilateral hip/knee xrays -IV morphine 6mg -observe and reassess 09/06/17 20:41 -Bilateral lower extremities venuous doppler: as per preliminary report, no acute DVT -bilateral hip xrays: no fracture or dislocation -Bilateral knee xrays: no fracture or dislocation -Labs are nonsignificant compared with previous labs except wbc 2.6 from 3.2, hgb 11.7 from 10.5, platete remains 49 from 49, INR 1.46 from 1.8 -Pt. feels asymptomatic, no pain now, discussed all labs/radiology results with the patient and the daughter on the bed side, offer admission for observation for pain control but they refused. Pt. stated that she has pain which she has oxycodone 5mg po at home from 2 days ago which she didn't take it as it makes her feels nauseous and too strong for her which i advised her to take half the dose and I will prescribe zofran, pt. and the daughter agreed. -Discharge home with zofran, continue the oxydocone or take half the dose of oxycodone at home with/without zofran, follow up with your own pmd and yue verduzco for follow up along with orthopedic follow up as well, return to the ER for any new or worsening signs or symptoms. - Lab Interpretations Lab Results: 09/06/17 19:00 09/06/17 19:00 Lab Results 09/06/17 19:00: WBC 2.6 L*, RBC 3.48 L, Hgb 11.7 L, Hct 34.6 L, MCV 99.4, MCH 33.6, MCHC 33.8, RDW 14.5, Plt Count 49 L*, MPV 13.2 H, Gran % 43.1 L, Lymph % ( Auto) 38.2 H, [facility] % (Auto) 13.0 H, Eos % (Auto) 5.3 H, Baso % (Auto) 0.4, Gran # 1.13 L, Lymph # (Auto) 1.0 L, [facility] # (Auto) 0.3, Eos # (Auto) 0.1, Baso # ( Auto) 0.01 09/06/17 19:00: Sodium 142, Potassium 4.5, Chloride 107, Carbon Dioxide 28, Anion Gap 11, BUN 11, Creatinine 0.6 L, Est GFR ( Amer) > 60, Est GFR ( Non-Af Amer) > 60, Random Glucose 163 H, Calcium 8.4, Magnesium 1.8, Total Bilirubin 2.2 H, AST 68 H D, ALT 41, Alkaline Phosphatase 104, Total Creatine Kinase 50, NT-Pro-B Natriuret Pep 191, Total Protein 6.1, Albumin 2.9 L, Globulin 3.2, Albumin/Globulin Ratio 0.9 L 09/06/17 19:00: PT 16.8 H, INR 1.46 H, APTT 39.3 H I have reviewed the lab results: Yes - RAD Interpretation Radiology Orders: 09/06/17 18:34 HIP MIN 5V W/ PELVIS GERALDINE [RAD] Stat KNEES BILATERAL [RAD] Stat DUPLEX LOWER EXTRM VEIN BILAT [US] Stat -Bilateral lower extremities venuous doppler: as per preliminary report, no acute DVT Bilateral knee xrays: normal radiograph of knees Bilateral hip xrays: noraml radiograph Abstract Checker: Radiologist - Medication Orders Current Medication Orders: Discontinued Medications Morphine Sulfate (Morphine) 6 mg IVP STAT STA Stop: 09/06/17 18:46 Last Admin: 09/06/17 19:03 Dose: 6 mg MAR Pain Assessment Document 09/06/17 19:03 SF (Rec: 09/06/17 19:04 SF [id number]) Pain Reassessment Is this a pain reassessment? Yes Sleep Is patient sleeping during reassessment? No Presence of Pain Presence of Pain Yes IVP Administration Document 09/06/17 19:03 SF (Rec: 09/06/17 19:04 SF [id number]) Charges for Administration # of IVP Administrations 1 - PA / HUMAN RESOURCES ASSOCIATE / Resident Statement MD/DO has reviewed & agrees with the documentation as recorded. Disposition/Present on Arrival - Present on Arrival Any Indicators Present on Arrival: No History of DVT/PE: No History of Uncontrolled Diabetes: No Urinary Catheter: No History of Decub. Ulcer: No History Surgical Site Infection Following: None - Disposition Have Diagnosis and Disposition been Completed?: Yes Diagnosis: Chronic ITP (idiopathic thrombocytopenia), Chronic anemia, Arthralgia Disposition: HOME/ ROUTINE Disposition Time: 18:44 Patient Plan: Discharge Condition: IMPROVED Additional Instructions: -Discharge home with zofran, continue the oxydocone or take half the dose of oxycodone at home with/without zofran, follow up with your own pmd and yue verduzco for follow up along with orthopedic follow up as well, return to the ER for any new or worsening signs or symptoms. Prescriptions: Ondansetron [Zofran] 4 mg PO Q8H PRN #12 tab PRN Reason: Other Referrals: Mohan Edwards MD [Primary Care Provider] - Follow up with primary Francisco Katz III, MD [Medical Doctor] - Follow up with primary Forms: WORK NOTE
[2017-09-06] MEDS ORDERED: Morphine 5 MG/ML SYRINGE IVP STA (18:40)
[2017-09-06 19:14] LABS: BASO # 0.01 K/mm3 (0.0-2.0); BASO % 0.4 % (0.0-3.0); EOS # 0.1 (0.0-0.7); EOS % 5.3 % (1.5-5.0); GRAN # 1.13 (1.4-6.5); GRAN % 43.1 % (50.0-68.0); HEMOGLOBIN 11.7 g/dL (12.0-16.0); LYMPH % 38.2 % (22.0-35.0); MEAN CELL VOLUME 99.4 fl (80.0-105.0); MEAN CORPUSCULAR HEMOGLOBIN 33.6 pg (25.0-35.0); MEAN CORPUSCULAR HGB CONC 33.8 g/dl (31.0-37.0); MEAN PLATELET VOLUME 13.2 fl (7.0-11.0); MONO # 0.3 (0.1-0.6); RBC 3.48 10^6/uL (3.5-6.1); RED CELL DISTRIBUTION WIDTH 14.5 % (11.5-14.5)
[2017-09-06 19:21] LABS: PLATELET COUNT 49 10^3/uL (120.0-450.0); WHITE BLOOD COUNT 2.6 10^3/ul (4.5-11.0)
[2017-09-06 19:23] LABS: INR 1.46 (0.93-1.08); PARTIAL THROMBOPLASTIN TIME 39.3 Seconds (25.1-36.5); PROTHROMBIN TIME 16.8 SECONDS (9.4-12.5)
[2017-09-06 19:24] LABS: ALB/GLOB RATIO 0.9 (1.1-1.8); ALBUMIN 2.9 g/dL (3.0-4.8); ALT/SGPT 41 U/L (7-56); AST/SGOT 68 U/L (14-36); BLOOD UREA NITROGEN 11 mg/dL (7-21); CALCIUM 8.4 mg/dL (8.4-10.5); GFR AFRICAN-AMERICAN > 60; GFR NON-AFRICAN AMERICAN > 60
[2017-09-06 19:30] LABS: B-TYPE NATRIURETIC PEPTIDE 191 pg/mL (0-450)
[2017-09-06 20:16] VITALS: BP 141/74; PULSE 74; RESP 18
[2017-09-06 20:55] VITALS: TEMP 97.7
[2017-09-06 20:57] VITALS: O2SAT 99
--- NOTE | 2017-09-07 08:17 | RAD ---
PROCEDURE: Radiographs of the pelvis and bilateral hips HISTORY: pain COMPARISON: None. FINDINGS: BONES: Pelvis: Unremarkable. Right hip:Unremarkable. Left hip:Unremarkable. JOINTS: Right hip: Unremarkable. Left hip: Unremarkable. Sacroiliac Joints: Unremarkable. Pubic symphysis: Unremarkable. SOFT TISSUES: Normal. OTHER FINDINGS: None. IMPRESSION: Unremarkable radiographs of the hips and pelvis.
--- NOTE | 2017-09-07 11:41 | RAD ---
Date of service: 09/06/2017 PROCEDURE: Bilateral Knee Radiographs. HISTORY: pain COMPARISON: None. FINDINGS: BONES: Right Knee: Normal. No fracture. Left Knee: Normal. No fracture. JOINTS: Right Knee: Normal. No osteoarthritis. Left knee: Normal. No osteoarthritis. SOFT TISSUES: Right Knee: Normal. Left Knee: Normal. JOINT EFFUSION: Right Knee: None. Left Knee: None. OTHER FINDINGS: None. IMPRESSION: Normal radiographs of the knees.
--- NOTE | 2017-09-07 15:28 | US ---
HISTORY: Leg pain and swelling. Evaluate for DVT PHYSICIAN(S): David Larkin MD. TECHNIQUE: Duplex sonography and color-flow Doppler with graded compression were used to evaluate the deep venous systems of both lower extremities. The exam is somewhat limited by edema. FINDINGS: The visualized deep venous systems of both lower extremities are sonographically normal and compressible. Normal wave forms and augmentation are seen. There is no sonographic evidence for deep venous thrombosis in the visualized segments of both lower extremities. IMPRESSION: No sonographic evidence for deep venous thrombosis in the visualized segments of both lower extremities.
== END 2017-09-06 20:56 | disposition home or self-care (01) ==
LOC: ED 18:00
DX: D69.3 Immune thrombocytopenic purpura (principal); M25.50 Pain in unspecified joint; D64.9 Anemia, unspecified
CPT/HCPCS: 73523; 73560; 80053; 82550; 83735; 83880; 85025; 85610; 85730; 93970; 96374; 99284; J2270

== ENCOUNTER 2017-11-23 17:25 | Observation (INO) | payer MEDICARE, OTHER ==
[2017-11-23 17:25] VITALS: BMI 30.5
--- NOTE | 2017-11-23 18:23 | ED PDOC ---
Arrival/HPI - General Chief Complaint: Altered Mental Status Time Seen by Provider: 11/23/17 17:35 Historian: Patient, Family - History of Present Illness Narrative History of Present Illness (Text): 11/23/17 17:56 82 year old female, with past medical history of diabetes, HLD, cirrhosis, COPD, and rheumatoid arthritis, presents to the Emergency Department accompanied by family for evaluation of drowsiness since 8am today. Family states patient had a trip and fall in [place] on Monday, sustaining injuries to her face and left chest wall. Patient was treated in [place], where she had an X-ray and mammogram performed as per son, and subsequently discharged home with tramadol after negative image findings. She did not fill the tramadol prescription. Patient informs taking half a pill of oxycodone 8am this morning and has been acting different from baseline since then. Patient denies any fever, chills, nausea, vomiting, diarrhea, abdominal pain, chest pain, shortness of breath, pain to left ribs, headache, neck pain, back pain or any other complaints. PMD: Dr. Mohan Edwards Time/Duration: 4-6 hours Symptom Onset: Gradual Symptom Course: Unchanged Activities at Onset: Light Context: Home Past Medical History - Provider Review Nursing Documentation Reviewed: Yes - Infectious Disease Hx of Infectious Diseases: None - Tetanus Immunization Tetanus Immunization: Unknown - Cardiac Hx Cardiac Disorders: Yes Hx Hypertension: Yes - Pulmonary Hx Chronic Obstructive Pulmonary Disease (COPD): Yes - Neurological Hx Neurological Disorder: Yes Hx Dizziness: Yes Hx Transient Ischemic Attacks (TIA): Yes - HEENT Hx HEENT Disorder: Yes Hx Cataracts: Yes (REMOVED GERALDINE.) - Renal Hx Renal Disorder: Yes Other/Comment: DIABETIC NEPHROSIS - Endocrine/Metabolic Hx Endocrine Disorders: Yes Hx Diabetes Mellitus Type 2: Yes (OFF MEDICATIONS AT PRESENT) - Hematological/Oncological Hx Blood Disorders: Yes Hx Anemia: Yes Hx Cirrhosis: Yes (AND THROMBOCYTOPENIA) Other/Comment: HYPOVITAMINOSIS D. IDIOPATHIC PURPURA - Integumentary Hx Dermatological Disorder: Yes Other/Comment: SCATTERED BRUISES - Musculoskeletal/Rheumatological Hx Musculoskeletal Disorders: Yes Hx Arthritis: Yes Hx Rheumatoid Arthritis: Yes - Gastrointestinal Hx Gastrointestinal Disorders: Yes Hx Gall Bladder Disease: Yes Hx Gastroesophageal Reflux: Yes Other/Comment: Cirrhosis - Genitourinary/Gynecological Hx Genitourinary Disorders: No - Psychiatric Hx Psychophysiologic Disorder: Yes Hx Anxiety: Yes Hx Depression: Yes (RECENT LOSS OF MOTHER ) Hx Substance Use: No - Surgical History Hx Cholecystectomy: Yes Other/Comment: LIVER BIOPSY - Anesthesia Hx Anesthesia: Yes Hx Anesthesia Reactions: No Hx Malignant Hyperthermia: No - Suicidal Assessment Feels Threatened In Home Enviroment: No Family/Social History - Physician Review Nursing Documentation Reviewed: Yes Family/Social History: No Known Family HX Smoking Status: Never Smoked Hx Alcohol Use: No Hx Substance Use: No Hx Substance Use Treatment: No Allergies/Home Meds Allergies/Adverse Reactions: Allergies No Known Allergies Allergy (Verified 11/23/17 17:48) Home Medications: Home Meds Medication Instructions Recorded Confirmed ALPRAZolam [Xanax] 0.25 mg PO DAILY 10/19/17 10/19/17 Chlorthalidone [Hygroton] 25 mg PO DAILY 10/19/17 10/19/17 Escitalopram [Lexapro] 10 mg PO DAILY 10/19/17 10/19/17 Gabapentin [Neurontin] 300 mg PO DAILY 10/19/17 10/19/17 Irbesartan [Avapro] 150 mg PO DAILY 10/19/17 10/19/17 Meclizine [Antivert] 12.5 mg PO DAILY 10/19/17 10/19/17 Pantoprazole [Protonix] 40 mg PO DAILY 10/19/17 10/19/17 Review of Systems - Physician Review All systems were reviewed & negative as marked: Yes - Review of Systems Constitutional: absent: Fevers Respiratory: absent: SOB, Cough Cardiovascular: absent: Chest Pain, GATES Gastrointestinal: absent: Abdominal Pain, Diarrhea, Nausea, Vomiting Musculoskeletal: absent: Back Pain, Neck Pain Neurological: absent: Headache, Dizziness Psychiatric: Other (Drowsiness) Physical Exam Vital Signs Reviewed: Yes Vital Signs Temp Pulse Resp BP Pulse Ox 11/23/17 17:41 98.1 F 81 18 185/93 H 96 Temperature: Afebrile Blood Pressure: Hypertensive Pulse: Regular Respiratory Rate: Normal Appearance: Positive for: Well-Appearing, Non-Toxic, Comfortable Pain Distress: None Mental Status: Positive for: Alert and Oriented X 3 Finger Stick Blood Glucose: 125 - Systems Exam Head: Present: Atraumatic, Normocephalic, Tenderness (Tenderness to parietal aspect of head but no hematoma noted.) Pupils: Present: PERRL Extroacular Muscles: Present: EOMI Conjunctiva: Present: Normal Mouth: Present: Moist Mucous Membranes, Normal Teeth. No: Normal Lips (Ecchymosis to left lower lip; no laceration.) Nose (Internal): Present: Normal Inspection. No: No Active Bleeding Neck: Present: Normal Range of Motion Respiratory/Chest: Present: Clear to Auscultation, Good Air Exchange, Other (Left rib tenderness. Ecchymosis noted to left chest wall.). No: Respiratory Distress, Accessory Muscle Use Cardiovascular: Present: Regular Rate and Rhythm, Normal S1, S2. No: Murmurs Abdomen: No: Tenderness, Distention, Peritoneal Signs Back: Present: Normal Inspection Upper Extremity: Present: Normal Inspection. No: Cyanosis, Edema Lower Extremity: Present: Normal Inspection. No: Edema Neurological: Present: GCS=15, CN II-XII Intact, Speech Normal, Motor Func Grossly Intact, Normal Sensory Function, Normal Cerebellar Funct Skin: Present: Warm, Dry, Normal Color. No: Rashes Psychiatric: Present: Alert, Oriented x 3 Medical Decision Making ED Course and Treatment: 11/23/17 17:56 Impression: 82 year old female presents to the Emergency Department complaining of drowsiness. Differential Diagnosis included but are not limited to: Mechanical fall with head injury r/o intracranial hemorrhage vs. fracture of ribs vs. medication reaction. Plan: -- CT of Head -- CT of Orbits -- EKG -- Labs -- X-ray of Abdomen -- X-ray of Left ribs -- Urinalysis -- Reassess and disposition Prior Visits: Notes and results from previous visits were reviewed. Progress Notes: 11/23/17 17:56 EKG: Ordered, reviewed, and independently interpreted the EKG. Rate : 79 BPM Rhythm : NSR Interpretation : No ST-segment elevations or depressions, no T-wave inversions, normal intervals. 11/23/17 20:20 CT results on [facility] shows Impression by DR. Tanner Sterling as: No actue or significant parenchymal abnormality involving the brain. Mild white matter ischemic changes. Basal ganglia calcification noted. Calvarium appears intact. Clinical correlation advised. Patient is now more awake, alert and oriented. Mild drowsiness. Family says she's waking up more. No pain except at times on her left ribs when she moves. Labetolol given for blood pressure elevation. 11/23/17 20:38 CT of Orbits and facial bones was reviewed by DR. Tanner Sterling, shows: No acute fracture involving the orbits or visualized facial bones. 11/23/17 20:54 Case was discussed with Dr. Walters who will place the patient on observation for altered mental status caused by medication. - Lab Interpretations Lab Results: Lab Results 11/23/17 17:39: POC Glucose (mg/dL) 124 H - RAD Interpretation Radiology Orders: 11/23/17 17:56 HEAD W/O CONTRAST [CT] Stat 11/23/17 17:58 ORBITS/ FACIALS W/O CONTRAST [CT] Stat ABD 2 VIEWS (FLAT/UP OR DECUB) [RAD] Stat RIBS LEFT & PA CHEST [RAD] Stat - EKG Interpretation Interpreted by ED Physician: Yes Type: 12 lead EKG - Scribe Statement The provider has reviewed the documentation as recorded by the Scribe Veronica Cruz. All medical record entries made by the Scribe were at my direction and personally dictated by me. I have reviewed the chart and agree that the record accurately reflects my personal performance of the history, physical exam, medical decision making, and the department course for this patient. I have also personally directed, reviewed, and agree with the discharge instructions and disposition. Disposition/Present on Arrival - Present on Arrival Any Indicators Present on Arrival: No History of DVT/PE: No History of Uncontrolled Diabetes: No Urinary Catheter: No History of Decub. Ulcer: No History Surgical Site Infection Following: None - Disposition Have Diagnosis and Disposition been Completed?: Yes Diagnosis: Altered mental status, Medication reaction Disposition: HOSPITALIZED Disposition Time: 20:55 Condition: FAIR Forms: [employer] (Japanese)
[2017-11-23 19:06] LABS: BASO # 0.03 K/mm3 (0.0-2.0); BASO % 0.5 % (0.0-3.0); EOS # 0.1 (0.0-0.7); EOS % 2.2 % (1.5-5.0); GRAN # 3.42 (1.4-6.5); LYMPH # 1.1 (1.2-3.4); LYMPH % 18.9 % (22.0-35.0); MEAN CELL VOLUME 101.6 fl (80.0-105.0); MEAN CORPUSCULAR HGB CONC 33.5 g/dl (31.0-37.0); MEAN PLATELET VOLUME 12.3 fl (7.0-11.0); MONO # 1.1 (0.1-0.6); MONO % 19.4 % (1.0-6.0); RBC 3.82 10^6/uL (3.5-6.1); RED CELL DISTRIBUTION WIDTH 16.2 % (11.5-14.5); WHITE BLOOD COUNT 5.8 10^3/ul (4.5-11.0)
[2017-11-23 19:15] LABS: INR 1.39; PROTHROMBIN TIME 15.9 SECONDS (9.4-12.5)
[2017-11-23 19:19] LABS: PARTIAL THROMBOPLASTIN TIME 37.2 Seconds (25.1-36.5)
[2017-11-23 19:22] LABS: ALB/GLOB RATIO 0.9 (1.1-1.8); ALBUMIN 3.1 g/dL (3.0-4.8); ALT/SGPT 41 U/L (7-56); AST/SGOT 62 U/L (14-36); BLOOD UREA NITROGEN 8 mg/dL (7-21); CALCIUM 8.5 mg/dL (8.4-10.5); GFR NON-AFRICAN AMERICAN > 60
[2017-11-23 19:33] LABS: TROPONIN I < 0.01 ng/mL
[2017-11-23] MEDS ORDERED: Labetalol 5 mg/ml Inj 20ML IV STA (20:31)
[2017-11-23 22:49] LABS: OPIATES, UR NEGATIVE (NEGATIVE); PH,URINE 7.5 (4.7-8.0); URINE APPEARANCE CLEAR (CLEAR); URINE BILIRUBIN NEGATIVE (NEGATIVE); URINE BLOOD NEGATIVE (NEGATIVE); URINE COLOR YELLOW (YELLOW); URINE GLUCOSE (UA) NEGATIVE (NEGATIVE); URINE LEUKOCYTE ESTERASE NEGATIVE Leu/uL (NEGATIVE); URINE PROTEIN NEGATIVE mg/dL (<30 mg/dL)
[2017-11-23 22:56] LABS: BARBITURATES, UR NEGATIVE (NEGATIVE); BENZODIAZEPINES, UR NEGATIVE (NEGATIVE); PHENCYCLIDINE, UR NEGATIVE (NEGATIVE)
--- NOTE | 2017-11-24 01:56 | CP.PCM.HP ---
<Rosanne Oconnor - Last Filed: 11/24/17 06:59> History of Present Illness - History of Present Illness History of Present Illness: HISTORY & PHYSICAL NOTE FOR HOSPITALIST TEAM Rosanne Ocononr D.O. PGY-1 CC: Drowsiness, altered mental status Pt is an 82y/o F with pmhx of COPD, rheumatoid arthritis, hemochromatosis, cirrhosis, DM diet controlled, HTN, HLD, presents to [facility] with family members presents with symptoms of drowsiness and altered mental status. Upon interview, pt was drowsy and provided limited history. Majority of history provided by son and daughter present at bedside. Pt had recently visited [place], and while there (11/20/17) she had fallen face forward towards her left side trying after trying to elevate her leg over a wooden board while walking. She denies hitting her head or loss of consciousness or neurological symptoms prior to the fall. After the fall she had felt pain in her L breast region along the chest wall after the fall. She denied diophoresis, nausea, vomiting or radiation to the L arm after the fall. She had visited the ER in [place] and was told there was no cranial bleeds or rib fractures on imaging studies. She was discharged with oxycodone. Pt has been taking 1/2 tablet oxycodone regularly for pain relief. Pt also takes xanax and anti-hypertensives regularly. As per daughter, at baseline, pt is very forgetful remembering people and with daily tasks. She requires assistance with ADLs. Daughter suspects that pt may have taken the inappropriate medication for pain relief. She reports patient has been asleep since 7am and very drowsy as compared to usual baseline. Pt unable to answer which medications she had taken in the am. She denies fevers, chills, headache, dizziness, chest pain, palpitations, shortness of breath, nausea, vomiting, constipation, diarrhea, dysuria. PMD: Dr. Edwards PMH: COPD, rheumatoid arthritis, hemochromatosis, cirrhosis, DM diet controlled, HTN, HLD, ITP All: Denies PSH: carpal tunnel, cholecystectomy FH: non-contributory SH: lives with , denies smoking, alcohol abuse, or drug abuse Meds: See MAR. Reviewed. Pt takes xanax 0.25mg daily Present on Admission - Present on Admission Any Indicators Present on Admission: No Review of Systems - Review of Systems Review of Systems: as per HPI Past Patient History - Infectious Disease Hx of Infectious Diseases: None - Tetanus Immunizations Tetanus Immunization: Unknown - Past Medical History & Family History Past Medical History?: Yes - Past Social History Smoking Status: Never Smoked - CARDIAC Hx Cardiac Disorders: Yes Hx Hypertension: Yes - PULMONARY Hx Chronic Obstructive Pulmonary Disease (COPD): Yes - NEUROLOGICAL Hx Neurological Disorder: Yes Hx Dizziness: Yes Hx Transient Ischemic Attacks (TIA): Yes - HEENT Hx HEENT Problems: Yes Hx Cataracts: Yes (REMOVED GERALDINE.) - RENAL Hx Chronic Kidney Disease: Yes Other/Comment: DIABETIC NEPHROSIS - ENDOCRINE/METABOLIC Hx Endocrine Disorders: Yes Hx Diabetes Mellitus Type 2: Yes (OFF MEDICATIONS AT PRESENT) - HEMATOLOGICAL/ONCOLOGICAL Hx Blood Disorders: Yes Hx Anemia: Yes Hx Cirrhosis: Yes (AND THROMBOCYTOPENIA) Other/Comment: HYPOVITAMINOSIS D. IDIOPATHIC PURPURA - INTEGUMENTARY Hx Dermatological Problems: Yes Other/Comment: SCATTERED BRUISES - MUSCULOSKELETAL/RHEUMATOLOGICAL Hx Musculoskeletal Disorders: Yes Hx Arthritis: Yes Hx Rheumatoid Arthritis: Yes - GASTROINTESTINAL Hx Gastrointestinal Disorders: Yes Hx Gall Bladder Disease: Yes Hx Gastroesophageal Reflux: Yes Other/Comment: Cirrhosis - GENITOURINARY/GYNECOLOGICAL Hx Genitourinary Disorders: No - PSYCHIATRIC Hx Psychophysiologic Disorder: Yes Hx Anxiety: Yes Hx Depression: Yes (RECENT LOSS OF MOTHER ) Hx Substance Use: No - SURGICAL HISTORY Hx Cholecystectomy: Yes Other/Comment: LIVER BIOPSY - ANESTHESIA Hx Anesthesia: Yes Hx Anesthesia Reactions: No Hx Malignant Hyperthermia: No Meds Allergies/Adverse Reactions: Allergies Allergy/AdvReac Type Severity Reaction Status Date / Time No Known Allergies Allergy Verified 11/23/17 17:48 Physical Exam - Constitutional Appears: Non-toxic, No Acute Distress, Chronically Ill - Head Exam Head Exam: ATRAUMATIC, NORMAL INSPECTION, NORMOCEPHALIC - Eye Exam Eye Exam: EOMI, PERRL. absent: Conjunctival injection, Scleral icterus Pupil Exam: NORMAL ACCOMODATION, PERRL - ENT Exam ENT Exam: Mucous Membranes Dry, Mucous Membranes Moist, Normal Exam, Normal External Ear Exam - Neck Exam Neck exam: Positive for: Normal Inspection. Negative for: Meningismus, Tenderness - Respiratory Exam Respiratory Exam: Chest Wall Tenderness, Clear to Auscultation Bilateral, NORMAL BREATHING PATTERN (L sided ) - Cardiovascular Exam Cardiovascular Exam: REGULAR RHYTHM, +S1, +S2 - GI/Abdominal Exam GI & Abdominal Exam: Normal Bowel Sounds, Soft. absent: Distended - Extremities Exam Extremities exam: Positive for: normal inspection. Negative for: calf tenderness, joint swelling - Back Exam Back exam: NORMAL INSPECTION - Neurological Exam Neurological exam: Alert, CN II-XII Intact, Oriented x3 - Psychiatric Exam Psychiatric exam: Normal Affect, Normal Mood - Skin Skin Exam: Dry, Warm Additional comments: Ecchymosis along L breast Ecchymosis L orbital region Results - Vital Signs Recent Vital Signs: Last Vital Signs Temp 99.1 F 11/23/17 23:10 Pulse 80 11/23/17 23:10 Resp 19 11/23/17 23:10 BP 194/92 H 11/23/17 23:24 Pulse Ox 94 L 11/23/17 23:10 - Labs Result Diagrams: 11/23/17 06:50 11/23/17 18:50 Labs: Laboratory Results - last 24 hr 11/23/17 11/23/17 11/23/17 06:50 06:50 17:39 WBC 5.8 D RBC 3.82 Hgb 13.0 Hct 38.8 MCV 101.6 MCH 34.0 MCHC 33.5 RDW 16.2 H Plt Count 57 L MPV 12.3 H Gran % 59.0 Lymph % (Auto) 18.9 L Kimball % (Auto) 19.4 H Eos % (Auto) 2.2 Baso % (Auto) 0.5 Gran # 3.42 Lymph # (Auto) 1.1 L Kimball # (Auto) 1.1 H Eos # (Auto) 0.1 Baso # (Auto) 0.03 PT 15.9 H INR 1.39 APTT 37.2 H Sodium Potassium Chloride Carbon Dioxide Anion Gap BUN Creatinine Est GFR ( Amer) Est GFR (Non-Af Amer) POC Glucose (mg/dL) 124 H Random Glucose Calcium Phosphorus Magnesium Total Bilirubin AST ALT Alkaline Phosphatase Ammonia Lactate Dehydrogenase Total Creatine Kinase Troponin I Total Protein Albumin Globulin Albumin/Globulin Ratio Urine Color Urine Appearance Urine pH Ur Specific Victoria Urine Protein Urine Glucose (UA) Urine Ketones Urine Blood Urine Nitrate Urine Bilirubin Urine Urobilinogen Ur Leukocyte Esterase Urine Opiates Screen Urine Methadone Screen Acetaminophen Ur Barbiturates Screen Ur Phencyclidine Scrn Ur Amphetamines Screen U Benzodiazepines Scrn U Oth Cocaine Metabols U Cannabinoids Screen 11/23/17 11/23/17 11/23/17 18:50 18:50 18:50 WBC RBC Hgb Hct MCV MCH MCHC RDW Plt Count MPV Gran % Lymph % (Auto) Kimball % (Auto) Eos % (Auto) Baso % (Auto) Gran # Lymph # (Auto) Kimball # (Auto) Eos # (Auto) Baso # (Auto) PT INR APTT Sodium 139 Potassium 3.7 Chloride 107 Carbon Dioxide 28 Anion Gap 8 L BUN 8 Creatinine 0.5 L Est GFR ( Amer) > 60 Est GFR (Non-Af Amer) > 60 POC Glucose (mg/dL) Random Glucose 111 H Calcium 8.5 Phosphorus 2.9 Magnesium 1.8 Total Bilirubin 4.3 H AST 62 H ALT 41 Alkaline Phosphatase 125 Ammonia 28 Lactate Dehydrogenase 1013 H Total Creatine Kinase 69 Troponin I < 0.01 Total Protein 6.6 Albumin 3.1 Globulin 3.6 Albumin/Globulin Ratio 0.9 L Urine Color Urine Appearance Urine pH Ur Specific Victoria Urine Protein Urine Glucose (UA) Urine Ketones Urine Blood Urine Nitrate Urine Bilirubin Urine Urobilinogen Ur Leukocyte Esterase Urine Opiates Screen Urine Methadone Screen Acetaminophen < 10.0 L Ur Barbiturates Screen Ur Phencyclidine Scrn Ur Amphetamines Screen U Benzodiazepines Scrn U Oth Cocaine Metabols U Cannabinoids Screen 11/23/17 11/23/17 22:21 22:21 WBC RBC Hgb Hct MCV MCH MCHC RDW Plt Count MPV Gran % Lymph % (Auto) Kimball % (Auto) Eos % (Auto) Baso % (Auto) Gran # Lymph # (Auto) Kimball # (Auto) Eos # (Auto) Baso # (Auto) PT INR APTT Sodium Potassium Chloride Carbon Dioxide Anion Gap BUN Creatinine Est GFR ( Amer) Est GFR (Non-Af Amer) POC Glucose (mg/dL) Random Glucose Calcium Phosphorus Magnesium Total Bilirubin AST ALT Alkaline Phosphatase Ammonia Lactate Dehydrogenase Total Creatine Kinase Troponin I Total Protein Albumin Globulin Albumin/Globulin Ratio Urine Color Yellow Urine Appearance Clear Urine pH 7.5 Ur Specific Victoria 1.010 Urine Protein Negative Urine Glucose (UA) Negative Urine Ketones Negative Urine Blood Negative Urine Nitrate Negative Urine Bilirubin Negative Urine Urobilinogen 1.0 H Ur Leukocyte Esterase Negative Urine Opiates Screen Negative Urine Methadone Screen Negative Acetaminophen Ur Barbiturates Screen Negative Ur Phencyclidine Scrn Negative Ur Amphetamines Screen Negative U Benzodiazepines Scrn Negative U Oth Cocaine Metabols Negative U Cannabinoids Screen Negative Assessment & Plan - Assessment and Plan (Free Text) Assessment: 82 y/o F with PMH of COPD, rheumatoid arthritis, hemochromatosis, cirrhosis, DM diet controlled, HTN, HLD, ITP s/p mechanical fall on 11/20/17 admitted for drowsiness/altered mental status likely secondary to medication misuse. Pt treated with IV analgesic in ED and admitted to observation. Plan: Altered mental status likely secondary to improper medication use Hold home xanax Fall precautions Neuro checks Q4H Hypertension continue home amlodipine continue home irbesartan continue home chlorthalidone Cirrhosis Avoid hepatotoxic drugs Monitor platelets. Transfuse as necessary GI/DVT ppx: Protonix/SCD Case seen, examined and discussed with attending physician, Dr. Walters. <Bailey Walters - Last Filed: 11/25/17 21:30> Results - Vital Signs Recent Vital Signs: Last Vital Signs Temp 97.8 F 11/25/17 06:00 Pulse 70 11/25/17 06:00 Resp 20 11/25/17 06:00 BP 140/72 11/25/17 06:00 Pulse Ox 95 11/25/17 06:00 - Labs Result Diagrams: 11/25/17 07:30 11/25/17 07:30 Labs: Laboratory Results - last 24 hr 11/25/17 11/25/17 07:30 07:30 WBC 3.9 L RBC 3.63 Hgb 12.1 Hct 36.6 MCV 100.8 MCH 33.3 MCHC 33.1 RDW 15.9 H Plt Count 58 L MPV 12.7 H Gran % 42.4 L Lymph % (Auto) 34.8 Kimball % (Auto) 17.1 H Eos % (Auto) 4.7 Baso % (Auto) 1.0 Gran # 1.63 Lymph # (Auto) 1.3 Kimball # (Auto) 0.7 H Eos # (Auto) 0.2 Baso # (Auto) 0.04 Sodium 139 Potassium 3.5 L Chloride 109 H Carbon Dioxide 26 Anion Gap 7 L BUN 11 Creatinine 0.6 L Est GFR ( Amer) > 60 Est GFR (Non-Af Amer) > 60 Random Glucose 85 Calcium 8.5 Phosphorus 3.2 Magnesium 1.8 Total Bilirubin 3.9 H AST 53 H ALT 31 Alkaline Phosphatase 109 Total Protein 5.9 Albumin 2.6 L Globulin 3.2 Albumin/Globulin Ratio 0.8 L Attending/Attestation - Attestation I have personally seen and examined this patient.: Yes I have fully participated in the care of the patient.: Yes I have reviewed all pertinent clinical information: Yes
[2017-11-24 03:48] VITALS: RESP 20
[2017-11-24 06:46] LABS: BASO # 0.04 K/mm3 (0.0-2.0); BASO % 0.9 % (0.0-3.0); EOS # 0.2 (0.0-0.7); EOS % 3.6 % (1.5-5.0); GRAN # 2.17 (1.4-6.5); GRAN % 48.3 % (50.0-68.0); HEMOGLOBIN 11.2 g/dL (12.0-16.0); LYMPH # 1.3 (1.2-3.4); LYMPH % 29.8 % (22.0-35.0); MEAN CELL VOLUME 100.9 fl (80.0-105.0); MEAN CORPUSCULAR HEMOGLOBIN 33.3 pg (25.0-35.0); MEAN PLATELET VOLUME 12.2 fl (7.0-11.0); MONO # 0.8 (0.1-0.6); MONO % 17.4 % (1.0-6.0); RBC 3.36 10^6/uL (3.5-6.1); RED CELL DISTRIBUTION WIDTH 16.2 % (11.5-14.5); WHITE BLOOD COUNT 4.5 10^3/ul (4.5-11.0)
[2017-11-24 07:11] LABS: ALB/GLOB RATIO 0.8 (1.1-1.8); ALBUMIN 2.5 g/dL (3.0-4.8); ALT/SGPT 37 U/L (7-56); AST/SGOT 47 U/L (14-36); BLOOD UREA NITROGEN 8 mg/dL (7-21); GFR NON-AFRICAN AMERICAN > 60
[2017-11-24] MEDS ORDERED: Potassium Chloride 20 mEq ER Tab PO ONE (07:37)
[2017-11-24] MEDS ORDERED: Magnesium Sulfate 1 gm in D5W 1 GM/100 ML BAG IVPB ONE (07:38)
--- NOTE | 2017-11-24 08:16 | RAD ---
Date of service: 11/23/2017 HISTORY: fall r/o free air COMPARISON: Chest radiographs 08/12/2017. FINDINGS: BOWEL: Nonobstructive bowel gas pattern appreciated. No prominent free intrarenal gas identified. No definite direct projection submitted. Air-fluid levels are not identified but cannot be evaluated due to supine positioning in both abdomen radiographs. Surgical clips in the right upper quadrant abdomen with no suspicious intra-abdominal calcifications. A few small calcifications seen at the inferior pelvis soft tissues bilaterally, likely reflecting phleboliths. BONES: Degenerative thoracolumbar spinal changes as well as degenerative change at the bilateral sacroiliac and hip joints. Diffuse osteopenia suggests osteoporosis. OTHER FINDINGS: Single frontal chest radiograph there is cardiomegaly and questioned pulmonary vascular congestion. Left basilar opacity may reflect atelectasis and small pleural effusion with none on the right. IMPRESSION: Nonobstructive bowel gas pattern. No large free intra peritoneal gas collection. Surgical clips in the right upper quadrant abdomen. Cardiomegaly and mild pulmonary vascular congestion suggested. Left basilar airspace disease and small left pleural effusion also evident.
--- NOTE | 2017-11-24 08:22 | RAD ---
Date of service: 11/23/2017 PROCEDURE: Radiographs of the Chest and Left Ribs. HISTORY: fall r/o fx COMPARISON: Portable chest 08/12/2017. TECHNIQUE: Frontal radiograph of the chest and multiple oblique radiographs of the left ribs were obtained. FINDINGS: LEFT RIBS: There is an old healed left 5th rib fracture. Questionable cortical discontinuity at the lateral margins of the left 4th rib may indicate an acute subacute fracture here. No additional potential left rib fracture identified otherwise. No destructive bony lesion evident. LUNGS: Left basilar atelectasis favored over infiltrate with trace left pleural effusion not excluded. PLEURA: No pneumothorax or pleural fluid. CARDIOVASCULAR: Cardiomegaly. Mild pulmonary vascular congestion. OTHER FINDINGS: None. IMPRESSION: Questionable left 4th rib fracture, acute or subacute timeframe. Old healed left 5th rib fracture noted. Cardiomegaly and mild pulmonary vascular congestion noted. Left basilar atelectasis favored over infiltrate with trace left pleural effusion.
--- NOTE | 2017-11-24 09:55 | CT ---
Date of service: 11/23/2017 PROCEDURE: CT HEAD WITHOUT CONTRAST. HISTORY: fall r/o ICH COMPARISON: Noncontrast brain MRI 07/12/2017. Noncontrast head CT 05/17/2014. TECHNIQUE: Axial computed tomography images were obtained through the head/brain without intravenous contrast. Radiation dose: Total exam DLP = 869.54 mGy-cm. This CT exam was performed using one or more of the following dose reduction techniques: Automated exposure control, adjustment of the mA and/or kV according to patient size, and/or use of iterative reconstruction technique. FINDINGS: HEMORRHAGE: No intracranial hemorrhage. BRAIN: Good corticomedullary differentiation is seen. Reiterated mild diffuse cerebral atrophy and moderate chronic microangiopathy. No suspicious extra-axial fluid collection is identified and the midline brain anatomy appears grossly nonfocal as imaged. No mass effect identified. VENTRICLES: Unremarkable. No hydrocephalus. CALVARIUM: No destructive bony lesion or displaced fracture identified including through the skullbase. PARANASAL SINUSES: Unremarkable as visualized. No significant inflammatory changes. MASTOID AIR CELLS: Unremarkable as visualized. No inflammatory changes. OTHER FINDINGS: None. IMPRESSION: Stable limited age-related neuro degenerative changes. No acute intracranial hemorrhage, mass effect, cortical edema or hydrocephalus. No fracture identified.
--- NOTE | 2017-11-24 10:04 | CT ---
Date of service: 11/23/2017 PROCEDURE: CT ORBITS WITHOUT CONTRAST. HISTORY: fall r/o fx COMPARISON: None available. TECHNIQUE: Axial CT images of the orbits were obtained. Coronal and sagittal reformats were generated. Radiation dose: Total exam DLP = 754.80 mGy-cm. This CT exam was performed using one or more of the following dose reduction techniques: Automated exposure control, adjustment of the mA and/or kV according to patient size, and/or use of iterative reconstruction technique. FINDINGS: RIGHT ORBIT: RIGHT BONY ORBIT: Normal. RIGHT INTRAORBITAL STRUCTURES: Globe: Normal. Extraocular muscles: Normal. Post septal space: Normal. Optic Nerve: Normal. Lacrimal Apparatus: Normal. RIGHT PRESEPTAL SOFT TISSUES: Normal. LEFT ORBIT: LEFT BONY ORBIT: Normal. LEFT INTRAORBITAL STRUCTURES: Globe: Normal. Extraocular muscles: Normal. Post septal space: Normal Optic Nerve: Normal. . Lacrimal Apparatus: Normal. LEFT PRESEPTAL SOFT TISSUES: Normal. 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 Visualized temporal, sphenoid and frontal bones are intact including zygomatic arches and pterygoid bones. Nasal bones are intact without discrete fracture. Mandible and maxilla are nonfocal with exception of the aforementioned left mandibular bicuspid apical lucency. Multilevel spondylosis upper cervical spine incidentally captured. IMPRESSION: Unremarkable non contrast enhanced CT of the orbits. No definite facial fracture appreciated as well. Incidental left mandibular bicuspid apical root abscess.
--- NOTE | 2017-11-24 10:05 | CARD ---
APPROVED REPORT Date of service: 11/23/2017 EKG Measurement Heart [id number] <Conclusion> Normal sinus rhythm Mild NSSTW changes Mildly prolonged QTc
--- NOTE | 2017-11-24 14:06 | CP.PCM.CON ---
History of Present Illness - History of Present Illness History of Present Illness: Kelsea Johnson, PGY2, Neurology Consult Note for Dr Shaw: Reason for consult: AMS CC: Drowsiness, altered mental status 82 year old female with PMH COPD, rheumatoid arthritis, hemochromatosis, cirrhosis, DM diet controlled, HTN, HLD, ITP, presents for drowsiness that started at 8 AM yesterday morning. Patient recently visited [place], and sustained a mechanical fall over there on 11/20. She visited ED over there, all imaging were negative. She sustained facial and left chest wall injuries. She was given Tramadol for pain. She reports that she may have accidentally taken oxycodone (that was at her home) for pain. After that, she felt drowsy and confused. Denies headache, LOC, syncope, dizziness, focal weakness, nausea, vomiting, fevers, chills, diaphoresis, cp, urinary symptoms, diarrhea. Her brought her to ED for evaluation. Neurology consulted for AMS. 12 point ROS obtained and negative, except as per HPI. PMD: Dr. Edwards PMH: COPD, rheumatoid arthritis, hemochromatosis, cirrhosis, DM diet controlled, HTN, HLD, ITP All: Denies PSH: carpal tunnel, cholecystectomy FH: non-contributory SH: lives with , denies smoking, alcohol abuse, or drug abuse Meds: See APR. Reviewed. Pt takes xanax 0.25mg daily Review of Systems - Review of Systems All systems: reviewed and no additional remarkable complaints except Review of Systems: as per HPI Past Patient History - Infectious Disease Hx of Infectious Diseases: None - Tetanus Immunizations Tetanus Immunization: Unknown - Past Medical History & Family History Past Medical History?: Yes - Past Social History Smoking Status: Never Smoked - CARDIAC Hx Cardiac Disorders: Yes Hx Hypertension: Yes - PULMONARY Hx Chronic Obstructive Pulmonary Disease (COPD): Yes - NEUROLOGICAL Hx Neurological Disorder: Yes Hx Dizziness: Yes Hx Transient Ischemic Attacks (TIA): Yes - HEENT Hx HEENT Problems: Yes Hx Cataracts: Yes (REMOVED GERALDINE.) - RENAL Hx Chronic Kidney Disease: Yes Other/Comment: DIABETIC NEPHROSIS - ENDOCRINE/METABOLIC Hx Endocrine Disorders: Yes Hx Diabetes Mellitus Type 2: Yes (OFF MEDICATIONS AT PRESENT) - HEMATOLOGICAL/ONCOLOGICAL Hx Blood Disorders: Yes Hx Anemia: Yes Hx Cirrhosis: Yes (AND THROMBOCYTOPENIA) Other/Comment: HYPOVITAMINOSIS D. IDIOPATHIC PURPURA - INTEGUMENTARY Hx Dermatological Problems: Yes Other/Comment: SCATTERED BRUISES - MUSCULOSKELETAL/RHEUMATOLOGICAL Hx Musculoskeletal Disorders: Yes Hx Arthritis: Yes Hx Rheumatoid Arthritis: Yes - GASTROINTESTINAL Hx Gastrointestinal Disorders: Yes Hx Gall Bladder Disease: Yes Hx Gastroesophageal Reflux: Yes Other/Comment: Cirrhosis - GENITOURINARY/GYNECOLOGICAL Hx Genitourinary Disorders: No - PSYCHIATRIC Hx Psychophysiologic Disorder: Yes Hx Anxiety: Yes Hx Depression: Yes (RECENT LOSS OF MOTHER ) Hx Substance Use: No - SURGICAL HISTORY Hx Cholecystectomy: Yes Other/Comment: LIVER BIOPSY - ANESTHESIA Hx Anesthesia: Yes Hx Anesthesia Reactions: No Hx Malignant Hyperthermia: No Meds Allergies/Adverse Reactions: Allergies Allergy/AdvReac Type Severity Reaction Status Date / Time No Known Allergies Allergy Verified 11/23/17 17:48 - Medications Medications: Current Medications Amlodipine Besylate (Norvasc) 10 mg PO DAILY [facility] Last Admin: 11/24/17 09:06 Dose: 10 mg Chlorthalidone (Hygroton) 25 mg PO DAILY [facility] Last Admin: 11/24/17 09:05 Dose: 25 mg Gabapentin (Neurontin) 300 mg PO BID [facility]; Protocol Last Admin: 11/24/17 09:06 Dose: 300 mg Losartan Potassium (Cozaar) 50 mg PO DAILY [facility] Last Admin: 11/24/17 09:06 Dose: 50 mg Physical Exam - Constitutional Appears: Non-toxic - Head Exam Additional comments: + facial bruising noted. Patient also had vitiligo all over body. - Eye Exam Eye Exam: EOMI, PERRL. absent: Conjunctival injection, Nystagmus, Scleral icte xu Pupil Exam: NORMAL ACCOMODATION, PERRL. absent: Fixed, Irregular, Miosis, Unequal - ENT Exam ENT Exam: Mucous Membranes Moist - Neck Exam Neck exam: Positive for: Full Rom - Respiratory Exam Respiratory Exam: Chest Wall Tenderness, Clear to Auscultation Bilateral, NORMAL BREATHING PATTERN. absent: Accessory Muscle Use, Rhonchi, Wheezes - Cardiovascular Exam Cardiovascular Exam: +S1, +S2. absent: Systolic Murmur - GI/Abdominal Exam GI & Abdominal Exam: Normal Bowel Sounds, Soft. absent: Distended, Firm, Guarding, Organomegaly, Rebound, Rigid, Tenderness - Extremities Exam Extremities exam: Negative for: calf tenderness, pedal edema - Back Exam Back exam: absent: CVA tenderness (L), CVA tenderness (R) - Neurological Exam Neurological exam: Alert, CN II-XII Intact, Oriented x3, Reflexes Normal Additional comments: Can name and repeat. No focal weakness. VFF. Motor strength 5/5 b/l UE and LE Sensation ft, pin, position sense intact. Cerebellar: no dysmetria, no ataxia. DTR +2 dtr UL and LL b/l. Toes downgoing. No clonus. - Psychiatric Exam Psychiatric exam: Normal Affect, Normal Mood - Skin Skin Exam: Dry, Normal Color, Warm Results - Vital Signs Recent Vital Signs: Last Vital Signs Temp 99.1 F 11/24/17 06:00 Pulse 79 11/24/17 06:00 Resp 20 11/24/17 06:00 BP 146/72 11/24/17 09:06 Pulse Ox 92 L 11/24/17 06:00 - Labs Result Diagrams: 11/24/17 05:30 11/24/17 05:30 Labs: Laboratory Results - last 24 hr 11/23/17 11/23/17 11/23/17 06:50 06:50 17:39 WBC 5.8 D RBC 3.82 Hgb 13.0 Hct 38.8 MCV 101.6 MCH 34.0 MCHC 33.5 RDW 16.2 H Plt Count 57 L MPV 12.3 H Gran % 59.0 Lymph % (Auto) 18.9 L Ward % (Auto) 19.4 H Eos % (Auto) 2.2 Baso % (Auto) 0.5 Gran # 3.42 Lymph # (Auto) 1.1 L Ward # (Auto) 1.1 H Eos # (Auto) 0.1 Baso # (Auto) 0.03 PT 15.9 H INR 1.39 APTT 37.2 H Sodium Potassium Chloride Carbon Dioxide Anion Gap BUN Creatinine Est GFR ( Amer) Est GFR (Non-Af Amer) POC Glucose (mg/dL) 124 H Random Glucose Calcium Phosphorus Magnesium Total Bilirubin AST ALT Alkaline Phosphatase Ammonia Lactate Dehydrogenase Total Creatine Kinase Troponin I Total Protein Albumin Globulin Albumin/Globulin Ratio Urine Color Urine Appearance Urine pH Ur Specific [place] Urine Protein Urine Glucose (UA) Urine Ketones Urine Blood Urine Nitrate Urine Bilirubin Urine Urobilinogen Ur Leukocyte Esterase Urine Opiates Screen Urine Methadone Screen Acetaminophen Ur Barbiturates Screen Ur Phencyclidine Scrn Ur Amphetamines Screen U Benzodiazepines Scrn U Oth Cocaine Metabols U Cannabinoids Screen 11/23/17 11/23/17 11/23/17 18:50 18:50 18:50 WBC RBC Hgb Hct MCV MCH MCHC RDW Plt Count MPV Gran % Lymph % (Auto) Ward % (Auto) Eos % (Auto) Baso % (Auto) Gran # Lymph # (Auto) Ward # (Auto) Eos # (Auto) Baso # (Auto) PT INR APTT Sodium 139 Potassium 3.7 Chloride 107 Carbon Dioxide 28 Anion Gap 8 L BUN 8 Creatinine 0.5 L Est GFR ( Amer) > 60 Est GFR (Non-Af Amer) > 60 POC Glucose (mg/dL) Random Glucose 111 H Calcium 8.5 Phosphorus 2.9 Magnesium 1.8 Total Bilirubin 4.3 H AST 62 H ALT 41 Alkaline Phosphatase 125 Ammonia 28 Lactate Dehydrogenase 1013 H Total Creatine Kinase 69 Troponin I < 0.01 Total Protein 6.6 Albumin 3.1 Globulin 3.6 Albumin/Globulin Ratio 0.9 L Urine Color Urine Appearance Urine pH Ur Specific [place] Urine Protein Urine Glucose (UA) Urine Ketones Urine Blood Urine Nitrate Urine Bilirubin Urine Urobilinogen Ur Leukocyte Esterase Urine Opiates Screen Urine Methadone Screen Acetaminophen < 10.0 L Ur Barbiturates Screen Ur Phencyclidine Scrn Ur Amphetamines Screen U Benzodiazepines Scrn U Oth Cocaine Metabols U Cannabinoids Screen 11/23/17 11/23/17 11/24/17 22:21 22:21 05:30 WBC 4.5 D RBC 3.36 L Hgb 11.2 L Hct 33.9 L MCV 100.9 MCH 33.3 MCHC 33.0 RDW 16.2 H Plt Count 57 L MPV 12.2 H Gran % 48.3 L Lymph % (Auto) 29.8 Ward % (Auto) 17.4 H Eos % (Auto) 3.6 Baso % (Auto) 0.9 Gran # 2.17 Lymph # (Auto) 1.3 Ward # (Auto) 0.8 H Eos # (Auto) 0.2 Baso # (Auto) 0.04 PT INR APTT Sodium Potassium Chloride Carbon Dioxide Anion Gap BUN Creatinine Est GFR ( Amer) Est GFR (Non-Af Amer) POC Glucose (mg/dL) Random Glucose Calcium Phosphorus Magnesium Total Bilirubin AST ALT Alkaline Phosphatase Ammonia Lactate Dehydrogenase Total Creatine Kinase Troponin I Total Protein Albumin Globulin Albumin/Globulin Ratio Urine Color Yellow Urine Appearance Clear Urine pH 7.5 Ur Specific [place] 1.010 Urine Protein Negative Urine Glucose (UA) Negative Urine Ketones Negative Urine Blood Negative Urine Nitrate Negative Urine Bilirubin Negative Urine Urobilinogen 1.0 H Ur Leukocyte Esterase Negative Urine Opiates Screen Negative Urine Methadone Screen Negative Acetaminophen Ur Barbiturates Screen Negative Ur Phencyclidine Scrn Negative Ur Amphetamines Screen Negative U Benzodiazepines Scrn Negative U Oth Cocaine Metabols Negative U Cannabinoids Screen Negative 11/24/17 05:30 WBC RBC Hgb Hct MCV MCH MCHC RDW Plt Count MPV Gran % Lymph % (Auto) Ward % (Auto) Eos % (Auto) Baso % (Auto) Gran # Lymph # (Auto) Ward # (Auto) Eos # (Auto) Baso # (Auto) PT INR APTT Sodium 136 Potassium 3.4 L Chloride 107 Carbon Dioxide 26 Anion Gap 6 L BUN 8 Creatinine 0.6 L Est GFR ( Amer) > 60 Est GFR (Non-Af Amer) > 60 POC Glucose (mg/dL) Random Glucose 95 Calcium 8.0 L Phosphorus 3.1 Magnesium 1.7 Total Bilirubin 4.7 H AST 47 H D ALT 37 Alkaline Phosphatase 100 Ammonia Lactate Dehydrogenase Total Creatine Kinase Troponin I Total Protein 5.7 L Albumin 2.5 L Globulin 3.2 Albumin/Globulin Ratio 0.8 L Urine Color Urine Appearance Urine pH Ur Specific [place] Urine Protein Urine Glucose (UA) Urine Ketones Urine Blood Urine Nitrate Urine Bilirubin Urine Urobilinogen Ur Leukocyte Esterase Urine Opiates Screen Urine Methadone Screen Acetaminophen Ur Barbiturates Screen Ur Phencyclidine Scrn Ur Amphetamines Screen U Benzodiazepines Scrn U Oth Cocaine Metabols U Cannabinoids Screen Assessment & Plan - Assessment and Plan (Free Text) Assessment: 82 year old female with PMH COPD, rheumatoid arthritis, hemochromatosis, cirrhosis, DM diet controlled, HTN, HLD, ITP, presents for drowsiness: - likely overmedication with pain meds (oxycodone, tramadol) - This AM, patient AOx4, no neurological deficits - Echo 09/2017 noted. - Head CT, orbital/facial CT negative. - Cleared from neurology standpoint for discharge. Please re-consult us if necessary. Case discussed with Dr Shaw.
[2017-11-24] MEDS ORDERED: Arformoterol 15 mcg/2 ml Inh Sol IH SCH (14:15)
[2017-11-24] MEDS: OLOPATADINE HCL OP SCH (14:22)
[2017-11-24] MEDS: Arformoterol 15 mcg/2 ml Inh Sol IH SCH (19:56)
[2017-11-25 07:52] LABS: BASO # 0.04 K/mm3 (0.0-2.0); EOS # 0.2 (0.0-0.7); EOS % 4.7 % (1.5-5.0); GRAN # 1.63 (1.4-6.5); GRAN % 42.4 % (50.0-68.0); HEMOGLOBIN 12.1 g/dL (12.0-16.0); LYMPH # 1.3 (1.2-3.4); LYMPH % 34.8 % (22.0-35.0); MEAN CELL VOLUME 100.8 fl (80.0-105.0); MEAN CORPUSCULAR HEMOGLOBIN 33.3 pg (25.0-35.0); MEAN CORPUSCULAR HGB CONC 33.1 g/dl (31.0-37.0); MEAN PLATELET VOLUME 12.7 fl (7.0-11.0); MONO # 0.7 (0.1-0.6); MONO % 17.1 % (1.0-6.0); RBC 3.63 10^6/uL (3.5-6.1); RED CELL DISTRIBUTION WIDTH 15.9 % (11.5-14.5); WHITE BLOOD COUNT 3.9 10^3/ul (4.5-11.0)
[2017-11-25] MEDS: Arformoterol 15 mcg/2 ml Inh Sol IH SCH (08:02)
[2017-11-25 08:22] LABS: ALB/GLOB RATIO 0.8 (1.1-1.8); ALBUMIN 2.6 g/dL (3.0-4.8); ALT/SGPT 31 U/L (7-56); AST/SGOT 53 U/L (14-36); BLOOD UREA NITROGEN 11 mg/dL (7-21); CALCIUM 8.5 mg/dL (8.4-10.5); GFR NON-AFRICAN AMERICAN > 60
[2017-11-25 09:04] VITALS: BP 140/72; PULSE 70; TEMP 97.8; O2SAT 95
[2017-11-25] MEDS: OLOPATADINE HCL OP SCH (09:10)
[2017-11-25] MEDS ORDERED: Potassium Chloride 20 mEq ER Tab PO ONE (09:35)
--- NOTE | 2017-11-25 17:06 | CP.PCM.DIS ---
Provider - Provider Date of Admission: 11/23/17 20:39 Attending physician: Roseline Fernandez DO Primary care physician: Dr. Edwards Consults: Neurology: Dr. Shaw Time Spent in preparation of Discharge (in minutes): 47 Hospital Course - Lab Results Lab Results: Most Recent Lab Values WBC 3.9 10^3/ul (4.5-11.0) L 11/25/17 07:30 RBC 3.63 10^6/uL (3.5-6.1) 11/25/17 07:30 Hgb 12.1 g/dL (12.0-16.0) 11/25/17 07:30 Hct 36.6 % (36.0-48.0) 11/25/17 07:30 MCV 100.8 fl (80.0-105.0) 11/25/17 07:30 MCH 33.3 pg (25.0-35.0) 11/25/17 07:30 MCHC 33.1 g/dl (31.0-37.0) 11/25/17 07:30 RDW 15.9 % (11.5-14.5) H 11/25/17 07:30 Plt Count 58 10^3/uL (120.0-450.0) L 11/25/17 07:30 MPV 12.7 fl (7.0-11.0) H 11/25/17 07:30 Gran % 42.4 % (50.0-68.0) L 11/25/17 07:30 Lymph % (Auto) 34.8 % (22.0-35.0) 11/25/17 07:30 Real % (Auto) 17.1 % (1.0-6.0) H 11/25/17 07:30 Eos % (Auto) 4.7 % (1.5-5.0) 11/25/17 07:30 Baso % (Auto) 1.0 % (0.0-3.0) 11/25/17 07:30 Gran # 1.63 (1.4-6.5) 11/25/17 07:30 Lymph # (Auto) 1.3 (1.2-3.4) 11/25/17 07:30 Real # (Auto) 0.7 (0.1-0.6) H 11/25/17 07:30 Eos # (Auto) 0.2 (0.0-0.7) 11/25/17 07:30 Baso # (Auto) 0.04 K/mm3 (0.0-2.0) 11/25/17 07:30 PT 15.9 SECONDS (9.4-12.5) H 11/23/17 06:50 INR 1.39 11/23/17 06:50 APTT 37.2 Seconds (25.1-36.5) H 11/23/17 06:50 Sodium 139 mmol/L (132-148) 11/25/17 07:30 Potassium 3.5 mmol/L (3.6-5.0) L 11/25/17 07:30 Chloride 109 mmol/L (98-107) H 11/25/17 07:30 Carbon Dioxide 26 mmol/L (21-33) 11/25/17 07:30 Anion Gap 7 (10-20) L 11/25/17 07:30 BUN 11 mg/dL (7-21) 11/25/17 07:30 Creatinine 0.6 mg/dl (0.7-1.2) L 11/25/17 07:30 Est GFR ( Amer) > 60 11/25/17 07:30 Est GFR (Non-Af Amer) > 60 11/25/17 07:30 POC Glucose (mg/dL) 124 mg/dL (65-110) H 11/23/17 17:39 Random Glucose 85 mg/dL (70-110) 11/25/17 07:30 Calcium 8.5 mg/dL (8.4-10.5) 11/25/17 07:30 Phosphorus 3.2 mg/dL (2.5-4.5) 11/25/17 07:30 Magnesium 1.8 mg/dL (1.7-2.2) 11/25/17 07:30 Total Bilirubin 3.9 mg/dL (0.2-1.3) H 11/25/17 07:30 AST 53 U/L (14-36) H 11/25/17 07:30 ALT 31 U/L (7-56) 11/25/17 07:30 Alkaline Phosphatase 109 U/L (38-126) 11/25/17 07:30 Ammonia 28 umol/L (9-33) 11/23/17 18:50 Lactate Dehydrogenase 1013 U/L (333-699) H 11/23/17 18:50 Total Creatine Kinase 69 U/L (35-230) 11/23/17 18:50 Troponin I < 0.01 ng/mL 11/23/17 18:50 Total Protein 5.9 g/dL (5.8-8.3) 11/25/17 07:30 Albumin 2.6 g/dL (3.0-4.8) L 11/25/17 07:30 Globulin 3.2 gm/dL 11/25/17 07:30 Albumin/Globulin Ratio 0.8 (1.1-1.8) L 11/25/17 07:30 Urine Color Yellow (YELLOW) 11/23/17 22:21 Urine Appearance Clear (CLEAR) 11/23/17 22:21 Urine pH 7.5 (4.7-8.0) 11/23/17 22:21 Ur Specific [place] 1.010 (1.005-1.035) 11/23/17 22:21 Urine Protein Negative mg/dL (<30 mg/dL) 11/23/17 22:21 Urine Glucose (UA) Negative mg/dL (NEGATIVE) 11/23/17 22:21 Urine Ketones Negative mg/dL (NEGATIVE) 11/23/17 22:21 Urine Blood Negative (NEGATIVE) 11/23/17 22:21 Urine Nitrate Negative (NEGATIVE) 11/23/17 22:21 Urine Bilirubin Negative (NEGATIVE) 11/23/17 22:21 Urine Urobilinogen 1.0 E.U./dL (<1 E.U./dL) H 11/23/17 22:21 Ur Leukocyte Esterase Negative [place]/uL (NEGATIVE) 11/23/17 22:21 Urine Opiates Screen Negative (NEGATIVE) 11/23/17 22:21 Urine Methadone Screen Negative (NEGATIVE) 11/23/17 22:21 Acetaminophen < 10.0 ug/ml (10.0-20.0) L 11/23/17 18:50 Ur Barbiturates Screen Negative (NEGATIVE) 11/23/17 22:21 Ur Phencyclidine Scrn Negative (NEGATIVE) 11/23/17 22:21 Ur Amphetamines Screen Negative (NEGATIVE) 11/23/17 22:21 U Benzodiazepines Scrn Negative (NEGATIVE) 11/23/17 22:21 U Oth Cocaine Metabols Negative (NEGATIVE) 11/23/17 22:21 U Cannabinoids Screen Negative (NEGATIVE) 11/23/17 22:21 - Hospital Course Hospital Course: 82 year old female with a past medical history significant for COPD, rheumatoid arthritis, hemachromatosis, cirrhosis, DM2 diet controlled, HTN, HLD, ITP s/p mechanical fall on 11/20/17 admitted for drowsiness/altered mental status. EKG showed NSR at 79bpm with no ST-segment elevations or depressions, no T-wave inversions, normal intervals. CT Head was negative for any acute findings. CT of [place] and facial bones negative for any acute fractures. Abdominal X-Ray showed non-obstructive bowel gas pattern. Ribs X-Ray showed questionable fracture of 4th left rib (no clinical correlation or pain to palpation on exam) and cardiomegaly with mild PVC. Neurology was consulted and determined patients clinical status was likely secondary to sedative medication overuse and cleared patient for discharge from their standpoint. Patient was started on her home medications minus the sedative medications. PT recommended HWS. Patient remained HDS and her VS were stable throughout admission and she was discharged home on 11/25/17 with instructions as written below. - Date & Time of H&P Date of H&P: 11/24/17 Time of H&P: 01:52 Discharge Exam - Head Exam Head Exam: ATRAUMATIC, NORMAL INSPECTION, NORMOCEPHALIC - Eye Exam Eye Exam: EOMI - ENT Exam ENT Exam: Mucous Membranes Moist - Neck Exam Neck exam: Full Rom - Respiratory Exam Respiratory Exam: Clear to PA & Lateral, NORMAL BREATHING PATTERN, UNREMARKABLE - Cardiovascular Exam Cardiovascular Exam: REGULAR RHYTHM - GI/Abdominal Exam GI & Abdominal Exam: Normal Bowel Sounds, Unremarkable - Extremities Exam Additional comments: No calf tenderness - Neurological Exam Neurological exam: Alert, Oriented x3 - Psychiatric Exam Psychiatric exam: Normal Affect, Normal Mood - Skin Skin Exam: Dry, Intact, Warm Discharge Plan - Follow Up Plan Condition: FAIR Disposition: HOME/ ROUTINE Instructions: Altered Mental Status (DC), Taking Narcotics Safely, Altered Mental Status (GEN) Additional Instructions: Please follow up with your primary care doctor, Dr. Gilberto Edwards, within 3-5 days of discharge. Please discuss with him all medical problems addressed during this admission. Also discuss with him each of your medications and their possible side effects. It is our recommendation that you, for your safety, stop taking the medication Xanax until you can have a discussion with Dr. Edwards regarding your need for this medication and all possible side effects in depth. Please stop using your home oxycodone pain medication. Please take all other medications as prescribed by your physician.. Should your symptoms return, please seek emergency medical attention immediately. Referrals: Mohan Edwards MD [Staff Provider] -
== END 2017-11-25 16:09 | disposition home or self-care (01) ==
LOC: ED 17:25 → ERH 20:39 → 3RSO 22:41
PROVIDERS: ADMIT Internal Medicine; ATTEND Hospitalist
DX: R41.82 Altered mental status, unspecified (principal); M06.9 Rheumatoid arthritis, unspecified; K74.60 Unspecified cirrhosis of liver; J44.9 Chronic obstructive pulmonary disease, unspecified; E78.5 Hyperlipidemia, unspecified; D69.3 Immune thrombocytopenic purpura; I10 Essential (primary) hypertension; E11.9 Type 2 diabetes mellitus without complications; K21.9 Gastro-esophageal reflux disease without esophagitis; Z86.73 Personal history of transient ischemic attack (TIA), and cerebral infarction without residual deficits; Z91.81 History of falling
CPT/HCPCS: 36415; 70450; 70480; 71101; 74019; 80053; 81003; 82140; 82550; 82948; 83615; 83735; 84100; 84484; 85025; 85610; 85730; 93005; 94640; 94760; 97161; 99285; C9113; G0378; G0480; G8978; G8979; J3475

== ENCOUNTER 2018-04-09 07:51 | Outpatient (CLI) | payer MEDICARE, OTHER | END 2018-04-09 07:52 | disposition home or self-care (01) | LOC: RAD 07:51 ==

== ENCOUNTER 2018-06-05 12:09 | Observation (INO) | payer MEDICARE, OTHER ==
[2018-06-05 12:13] VITALS: BMI 30.4
--- NOTE | 2018-06-05 12:41 | ED PDOC ---
Arrival/HPI - History of Present Illness Time/Duration: Other (1 month) Symptom Onset: Gradual Symptom Course: Unchanged Context: Home <Gray England - Last Filed: 06/05/18 15:16> - General Historian: Patient, Spouse - History of Present Illness Narrative History of Present Illness (Text): 06/05/18 12:40 Patient is a 83 year old Salvadorean speaking female with past medical history of COPD, rheumatoid arthritis, hemachromatosis, cirrhosis, DM2 diet controlled, HTN, HLD, ITP presenting with altered mental status. Patient was sent to emerg ency department by PMD Dr. Mohan Edwards. Over the past month, patient has been noted increasingly lethargic. Patient also reports poor oral intake due to lack of appetite. Patient instructed to discontinue xanax and oxycodone on previous admission in Oct 2017 however states she last took them two weeks ago. Denies fevers, chills, chest pain, shortness of breath, abdominal pain, diarrhea, dysuria. <Amber Bhatia - Last Filed: 06/05/18 15:53> - General Chief Complaint: Altered Mental Status Past Medical History - Provider Review Nursing Documentation Reviewed: Yes <BenthongGray - Last Filed: 06/05/18 15:16> - Infectious Disease Hx of Infectious Diseases: None - Tetanus Immunization Tetanus Immunization: Unknown - Cardiac Hx Cardiac Disorders: Yes Hx Hypertension: Yes - Pulmonary Hx Chronic Obstructive Pulmonary Disease (COPD): Yes - Neurological Hx Neurological Disorder: Yes Hx Dizziness: Yes Hx Transient Ischemic Attacks (TIA): Yes - HEENT Hx HEENT Disorder: Yes Hx Cataracts: Yes (REMOVED GERALDINE.) - Renal Hx Renal Disorder: Yes Other/Comment: DIABETIC NEPHROSIS - Endocrine/Metabolic Hx Diabetes Mellitus Type 2: Yes (OFF MEDICATIONS AT PRESENT) - Hematological/Oncological Hx Blood Disorders: Yes Hx Anemia: Yes Hx Cirrhosis: Yes (AND THROMBOCYTOPENIA) Other/Comment: HYPOVITAMINOSIS D. IDIOPATHIC PURPURA - Integumentary Hx Dermatological Disorder: Yes Other/Comment: SCATTERED BRUISES - Musculoskeletal/Rheumatological Hx Arthritis: Yes Hx Rheumatoid Arthritis: Yes - Gastrointestinal Hx Gastrointestinal Disorders: Yes Hx Gall Bladder Disease: Yes Hx Gastroesophageal Reflux: Yes Other/Comment: Cirrhosis - Genitourinary/Gynecological Hx Genitourinary Disorders: No - Psychiatric Hx Psychophysiologic Disorder: Yes Hx Anxiety: Yes Hx Depression: Yes (RECENT LOSS OF MOTHER ) Hx Substance Use: No - Surgical History Hx Cholecystectomy: Yes Other/Comment: LIVER BIOPSY - Anesthesia Hx Anesthesia: Yes Hx Anesthesia Reactions: No Hx Malignant Hyperthermia: No - Suicidal Assessment Feels Threatened In Home Enviroment: No <JannetteKeliglenn Anabella Last Filed: 06/05/18 15:53> Family/Social History - Physician Review Nursing Documentation Reviewed: Yes Family/Social History: No Known Family HX <SamantaGray - Last Filed: 06/05/18 15:16> Smoking Status: Never Smoked Hx Alcohol Use: No Hx Substance Use: No Hx Substance Use Treatment: No <Amber Bhatia Anabella Last Filed: 06/05/18 15:53> Allergies/Home Meds <Benitez Englandyl - Filed: 06/05/18 15:16> <Amber Bhatia Anabella Filed: 06/05/18 15:53> Allergies/Adverse Reactions: Allergies No Known Allergies Allergy (Verified 11/23/17 17:48) Home Medications: Home Meds Medication Instructions Recorded Confirmed Chlorthalidone [Hygroton] 25 mg PO DAILY 10/19/17 11/24/17 Arformoterol [Brovana] 15 mcg IH DAILY 11/24/17 11/24/17 Citalopram [celeXA] 10 mg PO DAILY 11/24/17 11/24/17 Olopatadine HCl [Pazeo] 2.5 ml OP DAILY 11/24/17 11/24/17 Review of Systems - Physician Review All systems were reviewed & negative as marked: Yes <SamantaGray - Last Filed: 06/05/18 15:16> - Review of Systems Constitutional: Fatigue Eyes: Normal ENT: Normal Respiratory: Normal Cardiovascular: Normal Gastrointestinal: Normal Genitourinary Female: Normal Musculoskeletal: Normal Skin: Normal Neurological: Dizziness (chronic) Endocrine: Normal Hemo/Lymphatic: Normal <JannetteKeliglenn Kyle Last Filed: 06/05/18 15:53> Physical Exam Vital Signs Reviewed: Yes Vital Signs Temp Pulse Resp BP Pulse Ox 06/05/18 12:10 98.1 F 74 18 144/86 94 L Temperature: Afebrile Blood Pressure: Normal Pulse: Regular Respiratory Rate: Normal Appearance: Positive for: Well-Appearing, Non-Toxic, Comfortable Pain Distress: None Mental Status: Positive for: Alert and Oriented X 3 - Systems Exam Psychiatric: Present: Alert, Oriented x 3 <Benitez Englandyl - Last Filed: 06/05/18 15:16> Appearance: Positive for: Non-Toxic, Comfortable - Systems Exam Head: Present: Atraumatic, Normocephalic Pupils: Present: PERRL Extroacular Muscles: Present: EOMI Conjunctiva: Present: Normal Mouth: Present: Moist Mucous Membranes Respiratory/Chest: Present: Clear to Auscultation. No: Respiratory Distress, Accessory Muscle Use Cardiovascular: Present: Regular Rate and Rhythm Abdomen: Present: Normal Bowel Sounds. No: Tenderness Lower Extremity: Present: Normal Inspection Neurological: Present: GCS=15, CN II-XII Intact, Speech Normal Skin: Present: Warm, Dry <Amber Bhatia Anabella - Last Filed: 06/05/18 15:53> Medical Decision Making ED Course and Treatment: 06/05/18 14:[address] Kamara(hospitalist) who accepts patient onto hospitalist service. He agrees with plan of management. In agreement with resident note, which includes further HPI details. Patient was seen and evaluated with resident, came up with plan and treatment together. 83 year old female sent in by PMD Dr. Edwards for evalaution of AMS for over the past 1 month. Plan: -- CT Head -- EKG -- Labs -- Enulose, Potassium Chloride, IV Fluids -- Urine Culture -- Urinalysis -- Reassess and disposition - Lab Interpretations Lab Results: Total Bilirubin 3.4 mg/dL (0.2-1.3) H 06/05/18 13:05 AST 74 U/L (14-36) H D 06/05/18 13:05 ALT 38 U/L (7-56) 06/05/18 13:05 Alkaline Phosphatase 129 U/L (38-126) H 06/05/18 13:05 Total Protein 6.9 g/dL (5.8-8.3) 06/05/18 13:05 Albumin 3.1 g/dL (3.0-4.8) 06/05/18 13:05 Globulin 3.8 gm/dL 06/05/18 13:05 Albumin/Globulin Ratio 0.8 (1.1-1.8) L 06/05/18 13:05 06/05/18 13:05 06/05/18 13:05 Lab Results 06/05/18 13:05: Ammonia 63 H 06/05/18 13:05: Sodium 142, Potassium 3.2 L, Chloride 109 H, Carbon Dioxide 28, Anion Gap 8 L, BUN 11, Creatinine 0.6 L, Est GFR ( Amer) > 60, Est GFR (Non-Af Amer) > 60, Random Glucose 89, Calcium 8.5, Phosphorus 3.0, Magnesium 1.7, Total Bilirubin 3.4 H, AST 74 H D, ALT 38, Alkaline Phosphatase 129 H, Total Protein 6.9, Albumin 3.1, Globulin 3.8, Albumin/Globulin Ratio 0.8 L 06/05/18 13:05: WBC 3.6 L, RBC 3.94, Hgb 13.1, Hct 38.9, MCV 98.7, MCH 33.2, MCHC 33.7, RDW 15.9 H, Plt Count 41 L*, Neut % (Auto) 49.7 L, Lymph % (Auto) 32.3, [place] % (Auto) 10.2 H, Eos % (Auto) 6.4 H, Baso % (Auto) 1.4, Lymph # (Auto) 1.2, [place] # (Auto) 0.4, Eos # (Auto) 0.2, Baso # (Auto) 0.05, Absolute Neuts (auto) 1.80 I have reviewed the lab results: Yes - RAD Interpretation Narrative RAD Interpretations (Text): PROCEDURE: CT HEAD WITHOUT CONTRAST. Dictator : Rupali Polanco MD Report Date : 06/05/2018 14:12:57 IMPRESSION: No acute intracranial abnormality. No significant interval change. Chest X-ray Dictator : Rupali Polanco MD Report Date : 06/05/2018 14:14:10 IMPRESSION: No active pulmonary disease. Radiology Orders: 06/05/18 12:36 CHEST PORTABLE [RAD] Stat 06/05/18 12:48 HEAD W/O CONTRAST [CT] Stat Batch Heat Treat Operator: Radiologist - Medication Orders Current Medication Orders: Sodium Chloride (Sodium Chloride 0.9%) 1,000 mls @ 100 mls/hr IV .Q10H DELPHINE Last Admin: 06/05/18 13:17 Dose: 100 mls/hr eMAR Start Stop Document 06/05/18 13:17 MA (Rec: 06/05/18 13:20 MA [facility] [id number]) Intravenous Solution Start Date 06/05/18 Start Time 13:20 Sodium Chloride (Sodium Chloride 0.9%) 1,000 mls @ 100 mls/hr IV .Q10H DELPHINE Last Admin: 06/05/18 13:17 Dose: 100 mls/hr eMAR Start Stop Document 06/05/18 13:17 MA (Rec: 06/05/18 13:20 MA [facility] [id number]) Intravenous Solution Start Date 06/05/18 Start Time 13:20 Potassium Chloride (Potassium Chloride 20 Meq/100 Ml) 20 meq in 100 mls @ 50 ml s/hr IVPB Q2H DELPHINE Stop: 06/05/18 18:29 Discontinued Medications Lactulose (Enulose) 20 gm PO ONCE STA Stop: 06/05/18 14:39 <Gray England - Last Filed: 06/05/18 15:16> ED Course and Treatment: Impression: altered mental status Differential Diagnosis included but are not limited to: hepatic encephalopathy, UTI Plan: -CT Head -EKG -Labs -Enulose, Potassium Chloride, IV Fluids -Urine Culture -Urinalysis -Reassess and disposition Prior Visits: Notes and results from previous visits were reviewed. Patient was last seen in the emergency department on Oct 2017 Progress Notes: Labs and imaging reviewed. Elevated ammonia level noted. Patient to be admitted to Hospitalist service. - RAD Interpretation Radiology Orders: 06/05/18 12:33 HEAD W/CONTRAST [CT] Stat 06/05/18 12:36 CHEST PORTABLE [RAD] Stat - EKG Interpretation EKG Interpretation (Text): 06/05/18 15:52 NSR, prolonged QTc Interpreted by ED Physician: Yes Type: 12 lead EKG Comparison: Similar to previous EKG - Medication Orders Current Medication Orders: Sodium Chloride (Sodium Chloride 0.9%) 1,000 mls @ 100 mls/hr IV .Q10H DELPHINE <Amber Bhatia - Last Filed: 06/05/18 15:53> - Scribe Statement The provider has reviewed the documentation as recorded by the Scribe Prince Paulino Provider Scribe Attestation: All medical record entries made by the Scribe were at my direction and perso brandon dictated by me. I have reviewed the chart and agree that the record accurately reflects my personal performance of the history, physical exam, medical decision making, and the department course for this patient. I have also personally directed, reviewed, and agree with the discharge instructions and disposition. <Gray England - Last Filed: 06/05/18 15:16> Disposition/Present on Arrival - Present on Arrival Any Indicators Present on Arrival: No - Disposition Have Diagnosis and Disposition been Completed?: Yes Disposition Time: 14:41 Patient Plan: Admission <Gray England - Last Filed: 06/05/18 15:16> - Present on Arrival History of DVT/PE: No History of Uncontrolled Diabetes: No Urinary Catheter: No History Surgical Site Infection Following: None <Amber Bhatia - Last Filed: 06/05/18 15:53> - Disposition Diagnosis: Hepatic encephalopathy, Thrombocytopenia, Hypokalemia Disposition: HOSPITALIZED Patient Problems: Current Active Problems Problem Status Onset Hepatic encephalopathy Acute Thrombocytopenia Acute Hypokalemia Acute Condition: FAIR Discharge Instructions (ExitCare): Hepatic Encephalopathy (DC) Referrals: Mohan Edwards MD [Primary Care Provider] - Follow up with primary Forms: [email or web address] (Turkish)
[2018-06-05] MEDS: Sodium Chloride 0.9% 1,000 ML IV SCH ×2 (13:17→22:00)
[2018-06-05 13:36] LABS: BASO # 0.05 K/mm3 (0.0-2.0); BASO % 1.4 % (0.0-3.0); EOS # 0.2 (0.0-0.7); EOS % 6.4 % (1.5-5.0); HEMOGLOBIN 13.1 g/dL (12.0-16.0); LYMPH # 1.2 (1.2-3.4); LYMPH % 32.3 % (22.0-35.0); MEAN CELL VOLUME 98.7 fl (80.0-105.0); MEAN CORPUSCULAR HEMOGLOBIN 33.2 pg (25.0-35.0); MEAN CORPUSCULAR HGB CONC 33.7 g/dl (31.0-37.0); MONO # 0.4 (0.1-0.6); MONO % 10.2 % (1.0-6.0); RBC 3.94 10^6/uL (3.5-6.1); RED CELL DISTRIBUTION WIDTH 15.9 % (11.5-14.5); WHITE BLOOD COUNT 3.6 10^3/uL (4.5-11.0)
[2018-06-05 13:41] LABS: PLATELET COUNT 41 10^3/uL (120.0-450.0)
[2018-06-05 13:45] LABS: ALB/GLOB RATIO 0.8 (1.1-1.8); ALBUMIN 3.1 g/dL (3.0-4.8); ALT/SGPT 38 U/L (7-56); AST/SGOT 74 U/L (14-36); BLOOD UREA NITROGEN 11 mg/dL (7-21); CALCIUM 8.5 mg/dL (8.4-10.5); GFR NON-AFRICAN AMERICAN > 60
--- NOTE | 2018-06-05 14:16 | CT ---
Date of service: 06/05/2018 PROCEDURE: CT HEAD WITHOUT CONTRAST. HISTORY: Altered mental status COMPARISON: CT head without contrast from 11/23/2017. TECHNIQUE: Axial computed tomography images were obtained through the head/brain without intravenous contrast. Radiation dose: Total exam DLP = 957.78 mGy-cm. This CT exam was performed using one or more of the following dose reduction techniques: Automated exposure control, adjustment of the mA and/or kV according to patient size, and/or use of iterative reconstruction technique. FINDINGS: HEMORRHAGE: No intracranial hemorrhage. BRAIN: There are mild chronic microangiopathic changes. There is no mass, mass effect or abnormal extra-axial fluid collection. There is no territorial infarction. The midline sagittal structures are normal. VENTRICLES: There is mild age-related global parenchymal volume loss and proportionate enlargement of the ventricles and cortical sulci. CALVARIUM: There is no calvarial fracture or extracranial soft tissue swelling. PARANASAL SINUSES: Predominantly clear. MASTOID AIR CELLS: Predominantly clear. OTHER FINDINGS: None. IMPRESSION: No acute intracranial abnormality. No significant interval change.
--- NOTE | 2018-06-05 14:17 | RAD ---
Date of service: 06/05/2018 HISTORY: AMS COMPARISON: 11/23/2017. FINDINGS: LUNGS: The lungs are well inflated and clear. There is linear scarring in the right lower lobe PLEURA: No pleural effusions or pneumothorax. CARDIOVASCULAR: Persistent moderate cardiomegaly. No aortic atherosclerotic calcifications present. OSSEOUS STRUCTURES: Within normal limits for the patient's age. VISUALIZED UPPER ABDOMEN: Normal. OTHER FINDINGS: None. IMPRESSION: No active pulmonary disease.
--- NOTE | 2018-06-05 14:48 | CARD ---
APPROVED REPORT Date of service: 06/05/2018 EKG Measurement Heart [id number] <Conclusion> Normal sinus rhythm Inferior infarct, age undetermined Prolonged QT Abnormal ECG
--- NOTE | 2018-06-05 17:14 | CP.PCM.HP ---
<Rosanne Oconnor - Last Filed: 06/05/18 17:02> History of Present Illness - History of Present Illness History of Present Illness: HISTORY & PHYSICAL NOTE FOR HOSPITALIST SERVICE Rosanne Oconnor PGY1 86 y/o costa rican speaking F with PMHx with PMH cirrhosis, DM, COPD, HTN, HLD presents to ED after being sent by her PMD, Dr. Edwards. Pt was visiting her PMD for a routine visit, and sent to ED as PMD believed pt was not at her baseline and recommended ED visit. Pt had also recently visited Dr. Adhikari (neurologist) for memory loss and was started on new medications. Pt & don't recall names of medications. As per present at bedside, pt has been confused over the past month, worse over the past weeks and has had difficulty with memory and gait. Pt has been having trouble walking around the has and with ADLs. Pt denies any head trauma, one sided weakness. denies any episodes of seizure like activity. Pt reports taking her prescribed medications. She denies fevers, chills, headache, dizziness, chest pain, palpitations, shortness of breath, nausea, vomiting, constipation, diarrhea, dysuria. PMH: COPD, cirrhosis, DM diet controlled, HTN, HLD, questionable history of rheumatoid arthritis, hemochromatosis, All: Denies PSH: carpal tunnel, cholecystectomy FH: Father: at 56 y/o: prostate ca, Mother: : "old age" SH: lives with , denies smoking, alcohol abuse, or drug abuse Meds: amitriptyline 25 mg qd, lexapro 10mg qd, losartan 100mg qd, pantoprazole 20mg qd, montelukast 10mg qd, amlodipine 10mg qd, chlorthalidone 25mg qd, xanax 0.25mg hs, brovana, budesonide, ventolin PMD: Dr. Edwards Present on Admission - Present on Admission Any Indicators Present on Admission: No Review of Systems - Review of Systems Review of Systems: per HPI Past Patient History - Infectious Disease Hx of Infectious Diseases: None - Tetanus Immunizations Tetanus Immunization: Unknown - Past Medical History & Family History Past Medical History?: Yes - Past Social History Smoking Status: Never Smoked - CARDIAC Hx Cardiac Disorders: Yes Hx Hypertension: Yes - PULMONARY Hx Chronic Obstructive Pulmonary Disease (COPD): Yes - NEUROLOGICAL Hx Neurological Disorder: Yes Hx Dizziness: Yes Hx Transient Ischemic Attacks (TIA): Yes - HEENT Hx HEENT Problems: Yes Hx Cataracts: Yes (REMOVED GERALDINE.) - RENAL Hx Chronic Kidney Disease: Yes Other/Comment: DIABETIC NEPHROSIS - ENDOCRINE/METABOLIC Hx Diabetes Mellitus Type 2: Yes (OFF MEDICATIONS AT PRESENT) - HEMATOLOGICAL/ONCOLOGICAL Hx Blood Disorders: Yes Hx Anemia: Yes Hx Cirrhosis: Yes (AND THROMBOCYTOPENIA) Other/Comment: HYPOVITAMINOSIS D. IDIOPATHIC PURPURA - INTEGUMENTARY Hx Dermatological Problems: Yes Other/Comment: SCATTERED BRUISES - MUSCULOSKELETAL/RHEUMATOLOGICAL Hx Arthritis: Yes Hx Rheumatoid Arthritis: Yes - GASTROINTESTINAL Hx Gastrointestinal Disorders: Yes Hx Gall Bladder Disease: Yes Hx Gastroesophageal Reflux: Yes Other/Comment: Cirrhosis - GENITOURINARY/GYNECOLOGICAL Hx Genitourinary Disorders: No - PSYCHIATRIC Hx Psychophysiologic Disorder: Yes Hx Anxiety: Yes Hx Depression: Yes (RECENT LOSS OF MOTHER ) Hx Substance Use: No - SURGICAL HISTORY Hx Cholecystectomy: Yes Other/Comment: LIVER BIOPSY - ANESTHESIA Hx Anesthesia: Yes Hx Anesthesia Reactions: No Hx Malignant Hyperthermia: No Meds Allergies/Adverse Reactions: Allergies Allergy/AdvReac Type Severity Reaction Status Date / Time No Known Allergies Allergy Verified 11/23/17 17:48 Physical Exam - Constitutional Appears: Well, Non-toxic, No Acute Distress Additional comments: conversing well - Head Exam Head Exam: ATRAUMATIC, NORMAL INSPECTION - Eye Exam Eye Exam: EOMI, Normal appearance. absent: Scleral icterus - ENT Exam ENT Exam: Mucous Membranes Moist, Normal Exam - Neck Exam Neck exam: Positive for: Normal Inspection - Respiratory Exam Respiratory Exam: Rhonchi, NORMAL BREATHING PATTERN - Cardiovascular Exam Cardiovascular Exam: REGULAR RHYTHM, +S1, +S2 - GI/Abdominal Exam GI & Abdominal Exam: Normal Bowel Sounds, Soft. absent: Organomegaly - Extremities Exam Extremities exam: Positive for: normal inspection. Negative for: calf tenderness - Back Exam Back exam: NORMAL INSPECTION - Neurological Exam Neurological exam: Alert Additional comments: oriented to person, place and president. - Psychiatric Exam Psychiatric exam: Normal Affect, Normal Mood - Skin Skin Exam: Dry, Intact, Warm Additional comments: No jaundice appreciated Results - Vital Signs Recent Vital Signs: Last Vital Signs Temp 98.1 F 06/05/18 12:10 Pulse 74 06/05/18 12:10 Resp 18 06/05/18 12:10 BP 144/86 06/05/18 12:10 Pulse Ox 94 L 06/05/18 12:10 - Labs Result Diagrams: 06/05/18 13:05 06/05/18 13:05 Labs: Laboratory Results - last 24 hr 06/05/18 06/05/18 06/05/18 13:05 13:05 13:05 WBC 3.6 L RBC 3.94 Hgb 13.1 Hct 38.9 MCV 98.7 MCH 33.2 MCHC 33.7 RDW 15.9 H Plt Count 41 L* Neut % (Auto) 49.7 L Lymph % (Auto) 32.3 [place] % (Auto) 10.2 H Eos % (Auto) 6.4 H Baso % (Auto) 1.4 Lymph # (Auto) 1.2 [place] # (Auto) 0.4 Eos # (Auto) 0.2 Baso # (Auto) 0.05 Absolute Neuts (auto) 1.80 Sodium 142 Potassium 3.2 L Chloride 109 H Carbon Dioxide 28 Anion Gap 8 L BUN 11 Creatinine 0.6 L Est GFR ( Amer) > 60 Est GFR (Non-Af Amer) > 60 Random Glucose 89 Calcium 8.5 Phosphorus 3.0 Magnesium 1.7 Total Bilirubin 3.4 H AST 74 H D ALT 38 Alkaline Phosphatase 129 H Ammonia 63 H Total Protein 6.9 Albumin 3.1 Globulin 3.8 Albumin/Globulin Ratio 0.8 L Assessment & Plan - Assessment and Plan (Free Text) Assessment: 83 y/o F with PMH of cirrhosis, DM2, COPD, HTN. questionable hemochromatosis presents to ED after being sent from her PMD for AMS and confusion. Pt found to have elevated ammonia level in ED and hypokalemia. Pt given lactulose and IV potassium in ED Plan: AMS -likely 2/2 elevated ammonia vs baseline dementia. CT Head: no acute changes -Pt conversing well, answering well, showing no focal neurologic deficits -will start lactulose 30mg tid -monitor K and replete as necessary -repeat ammonia level in am -f/u U/A -physical therapy eval & treat HTN -continue losartan, amlodipine COPD -continue budesonide, brovana, albuterol inhalers DVT/GI PPx: SCD/Protonix Case reviewed with attending physician, Dr. Asad Oconnor PGY1 <Chucky Kamara - Last Filed: 06/05/18 17:46> Results - Vital Signs Recent Vital Signs: Last Vital Signs Temp 98.1 F 06/05/18 12:10 Pulse 74 06/05/18 12:10 Resp 18 06/05/18 12:10 BP 144/86 06/05/18 12:10 Pulse Ox 94 L 06/05/18 12:10 - Labs Result Diagrams: 06/05/18 13:05 06/05/18 13:05 Labs: Laboratory Results - last 24 hr 06/05/18 06/05/18 06/05/18 13:05 13:05 13:05 WBC 3.6 L RBC 3.94 Hgb 13.1 Hct 38.9 MCV 98.7 MCH 33.2 MCHC 33.7 RDW 15.9 H Plt Count 41 L* Neut % (Auto) 49.7 L Lymph % (Auto) 32.3 [place] % (Auto) 10.2 H Eos % (Auto) 6.4 H Baso % (Auto) 1.4 Lymph # (Auto) 1.2 [place] # (Auto) 0.4 Eos # (Auto) 0.2 Baso # (Auto) 0.05 Absolute Neuts (auto) 1.80 Sodium 142 Potassium 3.2 L Chloride 109 H Carbon Dioxide 28 Anion Gap 8 L BUN 11 Creatinine 0.6 L Est GFR ( Amer) > 60 Est GFR (Non-Af Amer) > 60 Random Glucose 89 Calcium 8.5 Phosphorus 3.0 Magnesium 1.7 Total Bilirubin 3.4 H AST 74 H D ALT 38 Alkaline Phosphatase 129 H Ammonia 63 H Total Protein 6.9 Albumin 3.1 Globulin 3.8 Albumin/Globulin Ratio 0.8 L Attending/Attestation - Attestation I have personally seen and examined this patient.: Yes I have fully participated in the care of the patient.: Yes I have reviewed all pertinent clinical information: Yes Notes (Text): Patient seen and examined with the residents, agree with above. Referred to the ER by PMD as patient was noted to have AMS at today's regular visit with them Etiology likely secondary to hepatic encephalopathy as ammonia elevated Will start Lactulose and f/u on repeat ammonia in the am Patient coherent and answering questions during exam, not altered. Otherwise, benign exam. Agree with plan above.
[2018-06-05] MEDS: Pantoprazole 20 mg EC Tab PO SCH (18:03)
[2018-06-05] MEDS: Arformoterol 15 mcg/2 ml Inh Sol IH SCH (18:07)
[2018-06-05] MEDS: Budesonide 0.5 mg/2 ml Inhal Susp UD IH SCH (18:07)
[2018-06-05] MEDS ORDERED: Arformoterol 15 mcg/2 ml Inh Sol IH SCH (20:00)
[2018-06-05 20:06] LABS: PH,URINE 7.5 (4.7-8.0); URINE BILIRUBIN NEGATIVE (NEGATIVE); URINE BLOOD NEGATIVE (NEGATIVE); URINE GLUCOSE (UA) NEGATIVE (NEGATIVE); URINE LEUKOCYTE ESTERASE NEGATIVE Leu/uL (NEGATIVE); URINE PROTEIN NEGATIVE mg/dL (<30 mg/dL)
[2018-06-05 20:08] LABS: URINE APPEARANCE CLEAR (CLEAR); URINE COLOR YELLOW (YELLOW)
[2018-06-05 20:28] LABS: BARBITURATES, UR NEGATIVE (NEGATIVE); BENZODIAZEPINES, UR NEGATIVE (NEGATIVE); OPIATES, UR NEGATIVE (NEGATIVE); PHENCYCLIDINE, UR NEGATIVE (NEGATIVE)
[2018-06-05 22:42] VITALS: RESP 20
[2018-06-06 07:01] LABS: BASO # 0.02 K/mm3 (0.0-2.0); BASO % 0.5 % (0.0-3.0); EOS # 0.2 (0.0-0.7); EOS % 6.6 % (1.5-5.0); HEMOGLOBIN 11.5 g/dL (12.0-16.0); LYMPH # 1.3 (1.2-3.4); LYMPH % 34.5 % (22.0-35.0); MEAN CELL VOLUME 99.2 fl (80.0-105.0); MEAN CORPUSCULAR HEMOGLOBIN 32.5 pg (25.0-35.0); MEAN CORPUSCULAR HGB CONC 32.8 g/dl (31.0-37.0); MEAN PLATELET VOLUME 12.9 fl (7.0-11.0); MONO # 0.4 (0.1-0.6); RBC 3.54 10^6/uL (3.5-6.1); RED CELL DISTRIBUTION WIDTH 16.1 % (11.5-14.5); WHITE BLOOD COUNT 3.7 10^3/uL (4.5-11.0)
[2018-06-06 07:07] LABS: ALB/GLOB RATIO 0.8 (1.1-1.8); ALBUMIN 2.6 g/dL (3.0-4.8); ALT/SGPT 36 U/L (7-56); AST/SGOT 65 U/L (14-36); BLOOD UREA NITROGEN 8 mg/dL (7-21); GFR NON-AFRICAN AMERICAN > 60; HDL CHOLESTEROL 46 mg/dL (29-60)
[2018-06-06 07:15] LABS: LDL CHOLESTEROL 54 mg/dL (0-129)
[2018-06-06] MEDS ORDERED: Potassium Chloride 20 mEq ER Tab PO STA (07:15)
[2018-06-06 07:39] LABS: PLATELET COUNT 41 10^3/uL (120.0-450.0)
[2018-06-06] MEDS: Budesonide 0.5 mg/2 ml Inhal Susp UD IH SCH (07:54)
[2018-06-06] MEDS: Arformoterol 15 mcg/2 ml Inh Sol IH SCH (07:54)
[2018-06-06 08:48] VITALS: BP 146/83; PULSE 78; TEMP 97.3; O2SAT 97
[2018-06-06] MEDS: Pantoprazole 20 mg EC Tab PO SCH (09:05)
[2018-06-06] MEDS: Sodium Chloride 0.9% 1,000 ML IV SCH (09:05)
--- NOTE | 2018-06-06 10:32 | US ---
Date of service: 06/05/2018 HISTORY: Hepatic encephalopathy and thrombocytopenia. COMPARISON: 08/12/2017. CT abdomen and pelvis. TECHNIQUE: Sonographic evaluation of the abdomen. FINDINGS: LIVER: Measures 13.8 cm. Hepatopedal blood flow. Fatty infiltration manifest ultrasonographically as increased echogenicity of the liver parenchyma. No mass. No intrahepatic bile duct dilatation. Lobulated contour of similar finding seen previously. GALLBLADDER: Status post cholecystectomy. No abnormality is seen in the gallbladder fossa. COMMON BILE DUCT: Measures 9.3 mm. No stones. No dilatation. PANCREAS: Unremarkable as visualized. No mass. No ductal dilatation. RIGHT KIDNEY: Measures 5.9 x 11cm. Normal echogenicity. No calculus, mass, or hydronephrosis. LEFT KIDNEY: Measures 5.5 x 10.8cm. Normal echogenicity. No calculus, mass, or hydronephrosis. SPLEEN: Splenomegaly. Orthogonal measurements 6.3 x 13.5 cm. AORTA: No aneurysmal dilatation. IVC: Not visible. Obscured by overlying bowel gas. OTHER FINDINGS: Reconstitution of umbilical vein consistent with portal venous hypertension. IMPRESSION: No acute findings related to/ accounting for the clinical presentation. Findings consistent with cirrhosis and portal hypertension described in greater detail above. Concordant findings (preliminary report) provided by [facility].
--- NOTE | 2018-06-06 14:23 | CP.PCM.DIS ---
<Rosanne Oconnor - Last Filed: 06/06/18 14:19> Provider - Provider Date of Admission: 06/05/18 14:39 Attending physician: Mireya Squires MD Primary care physician: Mohan Edwards MD Consults: 06/05/18 22:30 Social Work Referral Routine Comment: ITZ SCORE 12 Physician Instructions: Reason For Exam: PROTOCOL 06/05/18 22:42 Inpatient [facility]EDGER Core Measures Referral Routine Comment: Physician Instructions: Reason For Exam: PROTOCOL Transition In Care/Readmission Reduction Routine Comment: Physician Instructions: Reason For Exam: PROTOCOL Time Spent in preparation of Discharge (in minutes): 45 Diagnosis - Discharge Diagnosis (1) Hepatic encephalopathy Status: Chronic Hospital Course - Lab Results Lab Results: Most Recent Lab Values WBC 3.7 10^3/uL (4.5-11.0) L 06/06/18 06:30 RBC 3.54 10^6/uL (3.5-6.1) 06/06/18 06:30 Hgb 11.5 g/dL (12.0-16.0) L 06/06/18 06:30 Hct 35.1 % (36.0-48.0) L 06/06/18 06:30 MCV 99.2 fl (80.0-105.0) 06/06/18 06:30 MCH 32.5 pg (25.0-35.0) 06/06/18 06:30 MCHC 32.8 g/dl (31.0-37.0) 06/06/18 06:30 RDW 16.1 % (11.5-14.5) H 06/06/18 06:30 Plt Count 41 10^3/uL (120.0-450.0) L* 06/06/18 06:30 MPV 12.9 fl (7.0-11.0) H 06/06/18 06:30 Neut % (Auto) 47.4 % (50.0-68.0) L 06/06/18 06:30 Lymph % (Auto) 34.5 % (22.0-35.0) 06/06/18 06:30 [place] % (Auto) 11.0 % (1.0-6.0) H 06/06/18 06:30 Eos % (Auto) 6.6 % (1.5-5.0) H 06/06/18 06:30 Baso % (Auto) 0.5 % (0.0-3.0) 06/06/18 06:30 Lymph # (Auto) 1.3 (1.2-3.4) 06/06/18 06:30 [place] # (Auto) 0.4 (0.1-0.6) 06/06/18 06:30 Eos # (Auto) 0.2 (0.0-0.7) 06/06/18 06:30 Baso # (Auto) 0.02 K/mm3 (0.0-2.0) 06/06/18 06:30 Absolute Neuts (auto) 1.73 (1.4-6.5) 06/06/18 06:30 Sodium 139 mmol/L (132-148) 06/06/18 06:25 Potassium 3.4 mmol/L (3.6-5.0) L 06/06/18 06:25 Chloride 110 mmol/L (98-107) H 06/06/18 06:25 Carbon Dioxide 24 mmol/L (21-33) 06/06/18 06:25 Anion Gap 9 (10-20) L 06/06/18 06:25 BUN 8 mg/dL (7-21) 06/06/18 06:25 Creatinine 0.5 mg/dl (0.7-1.2) L 06/06/18 06:25 Est GFR ( Amer) > 60 06/06/18 06:25 Est GFR (Non-Af Amer) > 60 06/06/18 06:25 Random Glucose 73 mg/dL (70-110) 06/06/18 06:25 Hemoglobin A1c 5.5 % (4.2-6.5) 06/06/18 06:25 Calcium 8.0 mg/dL (8.4-10.5) L 06/06/18 06:25 Phosphorus 3.0 mg/dL (2.5-4.5) 06/05/18 13:05 Magnesium 1.7 mg/dL (1.7-2.2) 06/05/18 13:05 Transferrin 184.50 mg/dL (206-381) L 06/06/18 06:25 Total Bilirubin 3.7 mg/dL (0.2-1.3) H 06/06/18 06:25 AST 65 U/L (14-36) H 06/06/18 06:25 ALT 36 U/L (7-56) 06/06/18 06:25 Alkaline Phosphatase 106 U/L (38-126) 06/06/18 06:25 Ammonia 48 umol/L (9-33) H D 06/06/18 06:30 Total Protein 6.0 g/dL (5.8-8.3) 06/06/18 06:25 Albumin 2.6 g/dL (3.0-4.8) L 06/06/18 06:25 Globulin 3.4 gm/dL 06/06/18 06:25 Albumin/Globulin Ratio 0.8 (1.1-1.8) L 06/06/18 06:25 Triglycerides 96 mg/dL (35-160) 06/06/18 06:25 Cholesterol 140 mg/dL (130-200) 06/06/18 06:25 LDL Cholesterol Direct 54 mg/dL (0-129) 06/06/18 06:25 HDL Cholesterol 46 mg/dL (29-60) 06/06/18 06:25 Urine Color Yellow (YELLOW) 06/05/18 19:40 Urine Appearance Clear (CLEAR) 06/05/18 19:40 Urine pH 7.5 (4.7-8.0) 06/05/18 19:40 Ur Specific [place] 1.015 (1.005-1.035) 06/05/18 19:40 Urine Protein Negative mg/dL (<30 mg/dL) 06/05/18 19:40 Urine Glucose (UA) Negative mg/dL (NEGATIVE) 06/05/18 19:40 Urine Ketones Negative mg/dL (NEGATIVE) 06/05/18 19:40 Urine Blood Negative (NEGATIVE) 06/05/18 19:40 Urine Nitrate Negative (NEGATIVE) 06/05/18 19:40 Urine Bilirubin Negative (NEGATIVE) 06/05/18 19:40 Urine Urobilinogen 1.0 E.U./dL (<1 E.U./dL) H 06/05/18 19:40 Ur Leukocyte Esterase Negative Teresita/uL (NEGATIVE) 06/05/18 19:40 Urine Opiates Screen Negative (NEGATIVE) 06/05/18 19:40 Urine Methadone Screen Negative (NEGATIVE) 06/05/18 19:40 Ur Barbiturates Screen Negative (NEGATIVE) 06/05/18 19:40 Ur Phencyclidine Scrn Negative (NEGATIVE) 06/05/18 19:40 Ur Amphetamines Screen Negative (NEGATIVE) 06/05/18 19:40 U Benzodiazepines Scrn Negative (NEGATIVE) 06/05/18 19:40 U Oth Cocaine Metabols Negative (NEGATIVE) 06/05/18 19:40 U Cannabinoids Screen Negative (NEGATIVE) 06/05/18 19:40 - Hospital Course Hospital Course: Upon Admission 86 y/o italian speaking F with PMHx with PMH cirrhosis, DM, COPD, HTN, HLD presents to ED after being sent by her PMD, Dr. Edwards. Pt was visiting her PMD for a routine visit, and sent to ED as PMD believed pt was not at her baseline and recommended ED visit. Pt had also recently visited Dr. Adhikari (neurologist) for memory loss and was started on new medications. Pt & don't recall names of medications. As per present at bedside, pt has been confused over the past month, worse over the past weeks and has had difficulty with memory and gait. Pt has been having trouble walking around the has and with ADLs. Pt denies any head trauma, one sided weakness. denies any episodes of seizure like activity. Pt reports taking her prescribed medications. Hospital Course: Pt was treated with lactulose tid. Ammonia level dropped down from [address] Head was negative for acute findings. Abd U/S revealed findings consistent with cirrhosis and portal hypertension. Pt had improvement in neurological symptoms Upon discharge: Pt is feeling better. Conversing well, AxO x 3. NAD, denying any complaints. Was evaluated by physical therapy and recommended home. Pt instructed on medication compliance, outpatient followup with specialists and PMD. Pt given lactulose prescription and instructed to followup outpatient for repeat ammonia level. Discharge Exam - Head Exam Head Exam: ATRAUMATIC, NORMAL INSPECTION - Eye Exam Eye Exam: EOMI, Normal appearance. absent: Scleral icterus - ENT Exam ENT Exam: Mucous Membranes Moist - Neck Exam Neck exam: Normal Inspection - Respiratory Exam Respiratory Exam: NORMAL BREATHING PATTERN, UNREMARKABLE - Cardiovascular Exam Cardiovascular Exam: REGULAR RHYTHM, +S1, +S2 - GI/Abdominal Exam GI & Abdominal Exam: Normal Bowel Sounds, Unremarkable - Neurological Exam Neurological exam: Alert, Oriented x3 - Psychiatric Exam Psychiatric exam: Normal Affect, Normal Mood - Skin Skin Exam: Dry, Intact, Warm Discharge Plan - Discharge Medications Prescriptions: Lactulose [Enulose] 30 gm PO TID #21 meghann - Follow Up Plan Condition: STABLE Disposition: HOME/ ROUTINE Instructions: Cirrhosis (DC), Hepatic Encephalopathy (DC), Hypokalemia (DC), Hypokalemia (GEN) Additional Instructions: Please follow up with your primary care doctor, Dr. Edwards within 3-5 days of discharge Please follow up in 1 week with blood work, including "Ammonia level" and "Complete Metabolic Panel." Please ask you primary care doctor to Please discuss with your doctor about a referral to a [facility] (for cirrhosis). Please follow up within 1 week. Please follow up with your neurologist, Dr. Adhikari within 1 week. Please resume taking your home medications. Please discuss your medications and any refills you need with your doctors You have been started on the following medication. Please take this medication as directed Lactulose 30mg Please take, by mouth three times a day for 7 days Please stop taking the medication if you experience excessive diarrhea. Please go to the nearest emergency room if you experience excessive diarrhea, dehydration, dizziness. If your symptoms return or you experience new symptoms, please return to the nearest emergency room Referrals: Per Adhikari MD [Staff Provider] - Mohan Edwards MD [Primary Care Provider] - Kathleen Meeks MD [Staff Provider] - <KamaraChucky - Last Filed: 06/06/18 18:52> Provider - Provider Date of Admission: 06/05/18 14:39 Attending physician: Mireya Squires MD Primary care physician: Mohan Edwards MD Consults: 06/05/18 22:30 Social Work Referral Routine Comment: ITZ SCORE 12 Physician Instructions: Reason For Exam: PROTOCOL 06/05/18 22:42 Inpatient [employer]EDGER Core Measures Referral Routine Comment: Physician Instructions: Reason For Exam: PROTOCOL Transition In Care/Readmission Reduction Routine Comment: Physician Instructions: Reason For Exam: PROTOCOL Hospital Course - Lab Results Lab Results: Most Recent Lab Values WBC 3.7 10^3/uL (4.5-11.0) L 06/06/18 06:30 RBC 3.54 10^6/uL (3.5-6.1) 06/06/18 06:30 Hgb 11.5 g/dL (12.0-16.0) L 06/06/18 06:30 Hct 35.1 % (36.0-48.0) L 06/06/18 06:30 MCV 99.2 fl (80.0-105.0) 06/06/18 06:30 MCH 32.5 pg (25.0-35.0) 06/06/18 06:30 MCHC 32.8 g/dl (31.0-37.0) 06/06/18 06:30 RDW 16.1 % (11.5-14.5) H 06/06/18 06:30 Plt Count 41 10^3/uL (120.0-450.0) L* 06/06/18 06:30 MPV 12.9 fl (7.0-11.0) H 06/06/18 06:30 Neut % (Auto) 47.4 % (50.0-68.0) L 06/06/18 06:30 Lymph % (Auto) 34.5 % (22.0-35.0) 06/06/18 06:30 [place] % (Auto) 11.0 % (1.0-6.0) H 06/06/18 06:30 Eos % (Auto) 6.6 % (1.5-5.0) H 06/06/18 06:30 Baso % (Auto) 0.5 % (0.0-3.0) 06/06/18 06:30 Lymph # (Auto) 1.3 (1.2-3.4) 06/06/18 06:30 [place] # (Auto) 0.4 (0.1-0.6) 06/06/18 06:30 Eos # (Auto) 0.2 (0.0-0.7) 06/06/18 06:30 Baso # (Auto) 0.02 K/mm3 (0.0-2.0) 06/06/18 06:30 Absolute Neuts (auto) 1.73 (1.4-6.5) 06/06/18 06:30 Sodium 139 mmol/L (132-148) 06/06/18 06:25 Potassium 3.4 mmol/L (3.6-5.0) L 06/06/18 06:25 Chloride 110 mmol/L (98-107) H 06/06/18 06:25 Carbon Dioxide 24 mmol/L (21-33) 06/06/18 06:25 Anion Gap 9 (10-20) L 06/06/18 06:25 BUN 8 mg/dL (7-21) 06/06/18 06:25 Creatinine 0.5 mg/dl (0.7-1.2) L 06/06/18 06:25 Est GFR ( Amer) > 60 06/06/18 06:25 Est GFR (Non-Af Amer) > 60 06/06/18 06:25 Random Glucose 73 mg/dL (70-110) 06/06/18 06:25 Hemoglobin A1c 5.5 % (4.2-6.5) 06/06/18 06:25 Calcium 8.0 mg/dL (8.4-10.5) L 06/06/18 06:25 Phosphorus 3.0 mg/dL (2.5-4.5) 06/05/18 13:05 Magnesium 1.7 mg/dL (1.7-2.2) 06/05/18 13:05 Transferrin 184.50 mg/dL (206-381) L 06/06/18 06:25 Total Bilirubin 3.7 mg/dL (0.2-1.3) H 06/06/18 06:25 AST 65 U/L (14-36) H 06/06/18 06:25 ALT 36 U/L (7-56) 06/06/18 06:25 Alkaline Phosphatase 106 U/L (38-126) 06/06/18 06:25 Ammonia 48 umol/L (9-33) H D 06/06/18 06:30 Total Protein 6.0 g/dL (5.8-8.3) 06/06/18 06:25 Albumin 2.6 g/dL (3.0-4.8) L 06/06/18 06:25 Globulin 3.4 gm/dL 06/06/18 06:25 Albumin/Globulin Ratio 0.8 (1.1-1.8) L 06/06/18 06:25 Triglycerides 96 mg/dL (35-160) 06/06/18 06:25 Cholesterol 140 mg/dL (130-200) 06/06/18 06:25 LDL Cholesterol Direct 54 mg/dL (0-129) 06/06/18 06:25 HDL Cholesterol 46 mg/dL (29-60) 06/06/18 06:25 Urine Color Yellow (YELLOW) 06/05/18 19:40 Urine Appearance Clear (CLEAR) 06/05/18 19:40 Urine pH 7.5 (4.7-8.0) 06/05/18 19:40 Ur Specific [place] 1.015 (1.005-1.035) 06/05/18 19:40 Urine Protein Negative mg/dL (<30 mg/dL) 06/05/18 19:40 Urine Glucose (UA) Negative mg/dL (NEGATIVE) 06/05/18 19:40 Urine Ketones Negative mg/dL (NEGATIVE) 06/05/18 19:40 Urine Blood Negative (NEGATIVE) 06/05/18 19:40 Urine Nitrate Negative (NEGATIVE) 06/05/18 19:40 Urine Bilirubin Negative (NEGATIVE) 06/05/18 19:40 Urine Urobilinogen 1.0 E.U./dL (<1 E.U./dL) H 06/05/18 19:40 Ur Leukocyte Esterase Negative Teresita/uL (NEGATIVE) 06/05/18 19:40 Urine Opiates Screen Negative (NEGATIVE) 06/05/18 19:40 Urine Methadone Screen Negative (NEGATIVE) 06/05/18 19:40 Ur Barbiturates Screen Negative (NEGATIVE) 06/05/18 19:40 Ur Phencyclidine Scrn Negative (NEGATIVE) 06/05/18 19:40 Ur Amphetamines Screen Negative (NEGATIVE) 06/05/18 19:40 U Benzodiazepines Scrn Negative (NEGATIVE) 06/05/18 19:40 U Oth Cocaine Metabols Negative (NEGATIVE) 06/05/18 19:40 U Cannabinoids Screen Negative (NEGATIVE) 06/05/18 19:40 Attending/Attestation - Attestation I have personally seen and examined this patient.: Yes I have fully participated in the care of the patient.: Yes I have reviewed all pertinent clinical information, including history, physical exam and plan: Yes
== END 2018-06-06 15:51 | disposition home or self-care (01) ==
LOC: ED 12:09 → ERH 14:39 → INTOOBSV 14:39 → ERH 20:39 → 3RNO 21:47
PROVIDERS: ADMIT Internal Medicine; ATTEND Internal Medicine
DX: K72.90 Hepatic failure, unspecified without coma (principal); K74.60 Unspecified cirrhosis of liver; D69.3 Immune thrombocytopenic purpura; E11.21 Type 2 diabetes mellitus with diabetic nephropathy; I12.9 Hypertensive chronic kidney disease with stage 1 through stage 4 chronic kidney disease, or unspecified chronic kidney disease; E11.22 Type 2 diabetes mellitus with diabetic chronic kidney disease; N18.9 Chronic kidney disease, unspecified; K76.6 Portal hypertension; M06.9 Rheumatoid arthritis, unspecified; E78.5 Hyperlipidemia, unspecified; E87.6 Hypokalemia; J44.9 Chronic obstructive pulmonary disease, unspecified; K21.9 Gastro-esophageal reflux disease without esophagitis; Z86.73 Personal history of transient ischemic attack (TIA), and cerebral infarction without residual deficits; Z90.49 Acquired absence of other specified parts of digestive tract; Z98.42 Cataract extraction status, left eye; Z98.41 Cataract extraction status, right eye; E55.9 Vitamin D deficiency, unspecified; F32.89 Other specified depressive episodes; F41.9 Anxiety disorder, unspecified
CPT/HCPCS: 36415; 70450; 71045; 76700; 80053; 80061; 81003; 82140; 83036; 83735; 84100; 84466; 85025; 87086; 93005; 96365; 96366; 97161; 97530; 99285; G0378; G0480; G8978; G8979; J3480; J7030